=== PATIENT | female | born 1940 | race Caucasian/White ===

== ENCOUNTER → 2016-07-17 | Outpatient (CLI) | payer MEDICARE, BC ==
--- NOTE | 2016-07-17 11:19 | MM ---
Reason for exam: history of breast cancer, conservation therapy. Last mammogram was performed 1 year ago. History: Patient is postmenopausal and has history of bilateral breast cancer at age 73. Family history of breast cancer in sister at age 60. Malignant left breast needle localization of both breasts, October 06, 2013. Lumpectomy of the left breast, October 06, 2013. Malignant US LT VAD breast biopsy of the left breast, September 17, 2013. Radiation therapy, 2013. Took estrogen for 10 years beginning at age 47. Taking antineoplastic for 1 year. Physical Findings: Nurse did not find any significant physical abnormalities on exam. MG 3D Diag Mammo W/Cad KAT Bilateral CC and MLO view(s) were taken. Prior study comparison: July 14, 2015, bilateral MG 3d diag mammo w/cad KAT. July 13, 2014, bilateral MG diagnostic mammo w CAD KAT. August 29, 2013, bilateral digital screening mammo w/CAD. The breast tissue is heterogeneously dense. This may lower the sensitivity of mammography. Post surgical and post therapy changes in the left breast. No significant new findings when compared with previous films. These results were verbally communicated with the patient and result sheet given to the patient on 07/17/16. ASSESSMENT: Benign, BI-RAD 2 RECOMMENDATION: Follow-up diagnostic mammogram of both breasts in 1 year.
== END | disposition home or self-care (01) ==
LOC: RADMAMWWP 10:05
PROVIDERS: ATTEND Radiology Diagnostic Radiology
DX: C50.912 Malignant neoplasm of unspecified site of left female breast (principal)
CPT/HCPCS: G0204; G0279

== ENCOUNTER → 2017-07-18 | Outpatient (CLI) | payer MEDICARE, BC ==
--- NOTE | 2017-07-18 11:21 | MM ---
Reason for exam: additional evaluation requested from prior study. Last mammogram was performed 1 year ago. History: Patient is postmenopausal and has history of bilateral breast cancer at age 73. Family history of breast cancer in sister at age 60. Malignant left breast needle localization of both breasts, October 06, 2013. Lumpectomy of the left breast, October 06, 2013. Malignant US LT VAD breast biopsy of the left breast, September 17, 2013. Radiation therapy, 2013. Took estrogen for 10 years beginning at age 47. Taking antineoplastic for 1 year. Physical Findings: Nurse did not find any significant physical abnormalities on exam. MG 3D Diag Mammo W/Cad KAT Bilateral CC and MLO view(s) were taken. Prior study comparison: July 17, 2016, bilateral MG 3d diag mammo w/cad KAT. July 14, 2015, bilateral MG 3d diag mammo w/cad KAT. The breast tissue is heterogeneously dense. This may lower the sensitivity of mammography. Post surgical and post therapy changes in the left breast. Some benign secretory calcifications increased at 3 o'clock left breast. Focal asymmetry lateral right breast CC view does not persist on spot 3D. These results were verbally communicated with the patient and result sheet given to the patient on 07/18/17. ASSESSMENT: Benign, BI-RAD 2 RECOMMENDATION: Follow-up diagnostic mammogram of both breasts in 1 year.
== END | disposition home or self-care (01) ==
LOC: RADMAMWWP 09:34
PROVIDERS: ATTEND Radiology Diagnostic Radiology
DX: C50.912 Malignant neoplasm of unspecified site of left female breast (principal)
CPT/HCPCS: 77066; G0279

== ENCOUNTER → 2018-01-28 | Outpatient (CLI) | payer MEDICARE, BC ==
--- NOTE | 2018-01-28 14:12 | BD ---
EXAMINATION TYPE: Axial Bone Density DATE OF EXAM: 01/28/2018 CLINICAL HISTORY: Postmenopausal female. Osteoporosis screening. COMPARISON: 01/26/2016 Height: 61.5 Weight: 155 FRAX RISK QUESTIONS: Alcohol (3 or more units per day): no Family History (Parent hip fracture): no Glucocorticoids (More than 3mos): no (Ex: prednisone, prednisolone, methylprednisolone, dexamethasone, and hydrocortisone). History of Fracture in Adulthood: no Secondary Osteoporosis: 1. Type 1 Diabetes: no 2. Hyperthyroidism: unsure 3. Menopause before 45: no, complete hysterectomy age 47 4. Malnutrition: no 5. Chronic liver disease: no Rheumatoid Arthritis: no Current Tobacco Use: no RISK FACTORS HISTORY OF: Family History of Osteoporosis: unsure Active: somewhat Diet low in dairy products/other sources of calcium: somewhat Postmenopausal woman: yes Take estrogen and/or progesterone medications: not now How long: Estrogen age [age] Lost more than 2 inches in height since high school: unsure; possibly height at one time was 63 1/2 i nches Frequent falls: no Poor Health: no Hyperparathyroidism: no Adrenal Insufficiency: no MEDICATIONS: Prednisone or other steroids: no Thyroid Medications: yes Which medication: Levothyroxine How Long: about 5-10 years Osteoporosis Medications: yes Which medication: Alendronate How Long: several years Additional Medications: Anastrozole(since ), AmLodipine-Besylate, Lisinopril Additional History: breast CA 2013, radiation EXAM MEASUREMENTS: Bone mineral densitometry was performed using the [employer] System. Bone mineral density as measured about the Lumbar spine is: ----- L1-L4(G/cm2): 1.646 T Score Values are as follows: ----- L2: 4.0 ----- L3: 4.9 ----- L4: 4.1 ----- L1-L4: 3.9 Bone mineral density has: Increased 1.7% since study of: 01/26/2016 Bone mineral density about the R hip (g/cm2): 0.808 Bone mineral density about the L hip (g/cm2): 0.825 T Score values are as follows: -----R Neck: -1.7 -----L Neck: -1.5 -----R Total: -0.4 -----L Total: -0.2 Bone mineral density has: Decreased -2.4% since study of: 01/26/2016 IMPRESSION: Osteopenia (T Score between -2.5 and -1). There is slightly increased risk of fracture and the patient may be considered for treatment. Re-Screen 2-5 years. NOTE: T-SCORE=SD OF THE YOUNG ADULT MEAN.
== END | disposition home or self-care (01) ==
LOC: RADBDWWP 13:00
PROVIDERS: ATTEND Internal Medicine Hematology & Oncology
DX: M85.80 Other specified disorders of bone density and structure, unspecified site (principal); Z79.890 Hormone replacement therapy
CPT/HCPCS: 77080

== ENCOUNTER → 2018-07-19 | Outpatient (CLI) | payer MEDICARE, BC ==
--- NOTE | 2018-07-19 12:14 | MM ---
Reason for exam: additional evaluation requested from prior study. Last mammogram was performed 1 year ago. History: Patient is postmenopausal and has history of bilateral breast cancer at age 73. Family history of breast cancer in sister at age 60. Malignant left breast needle localization of both breasts, October 06, 2013. Lumpectomy of the left breast, October 06, 2013. Malignant US LT VAD breast biopsy of the left breast, September 17, 2013. Radiation therapy, 2013. Took estrogen for 10 years beginning at age 47. Taking antineoplastic for 1 year. Physical Findings: Nurse did not find any significant physical abnormalities on exam. MG 3D Diag Mammo W/Cad KAT Bilateral CC and MLO view(s) were taken. XCCL and spot compression MLO view(s) were taken of the left breast. Prior study comparison: July 18, 2017, bilateral MG 3d diag mammo w/cad KAT. July 17, 2016, bilateral MG 3d diag mammo w/cad KAT. The breast tissue is heterogeneously dense. This may lower the sensitivity of mammography. Stable benign calcifications. Post operative lumpectomy changes left breast. No recurrent mass. No significant new findings when compared with previous films. These results were verbally communicated with the patient and result sheet given to the patient on 07/19/18. ASSESSMENT: Benign, BI-RAD 2 RECOMMENDATION: Follow-up diagnostic mammogram of both breasts in 1 year.
== END ==
LOC: RADMAMWWP 10:43
PROVIDERS: ATTEND Radiology Diagnostic Radiology
DX: C50.412 Malignant neoplasm of upper-outer quadrant of left female breast (principal)
CPT/HCPCS: 77066; G0279; 77062

== ENCOUNTER → 2019-07-21 | Outpatient (CLI) | payer MEDICARE, BC ==
--- NOTE | 2019-07-21 11:50 | MM ---
Reason for exam: additional evaluation requested from prior study. Last mammogram was performed 1 year ago. History: Patient is postmenopausal and has history of bilateral breast cancer at age 73. Family history of breast cancer in sister at age 60. Malignant left breast needle localization of both breasts, October 06, 2013. Lumpectomy of the left breast, October 06, 2013. Malignant US LT VAD breast biopsy of the left breast, September 17, 2013. Radiation therapy, 2013. Took estrogen for 10 years beginning at age 47. Taking antineoplastic for 1 year. Physical Findings: Nurse did not find any significant physical abnormalities on exam. MG 3D Diag Mammo W/Cad KAT Bilateral CC and MLO view(s) were taken. Prior study comparison: July 19, 2018, bilateral MG 3d diag mammo w/cad KAT. July 18, 2017, bilateral MG 3d diag mammo w/cad KAT. The breast tissue is heterogeneously dense. This may lower the sensitivity of mammography. Benign appearing bilateral calcifications. No suspicious abnormality. Left post therapy change stable right upper outer quadrant intramammary lymph node. No significant new findings when compared with previous films. These results were verbally communicated with the patient and result sheet given to the patient on 07/21/19. ASSESSMENT: Benign, BI-RAD 2 RECOMMENDATION: Follow-up diagnostic mammogram of both breasts in 1 year.
== END | disposition home or self-care (01) ==
LOC: RADMAMWWP 10:48
PROVIDERS: ATTEND Radiology Diagnostic Radiology
DX: Z08 Encounter for follow-up examination after completed treatment for malignant neoplasm (principal); Z85.3 Personal history of malignant neoplasm of breast
CPT/HCPCS: 77066; G0279; 77062

== ENCOUNTER 2020-04-17 11:27 | Emergency (ER) | payer MEDICARE, BC ==
[2020-04-17 11:36] VITALS: RESP 18
[2020-04-17] MEDS ORDERED: predniSONE 50 MG TAB PO STA (12:34)
[2020-04-17] MEDS ORDERED: ACET/COD 300 MG/30 MG STARTER PACK 6 TAB BTL PO STA (12:34)
--- NOTE | 2020-04-17 12:39 | ED ---
Neck Injury/Pain HPI - General Chief Complaint: Neck Pain/Injury Stated Complaint: Neck Pain Time Seen by Provider: 04/17/20 11:38 Source: RN notes reviewed, old records reviewed Mode of arrival: ambulatory Limitations: no limitations - History of Present Illness Initial Comments: Patient's an 80-year-old female who presents emergency room today with chief complaint of 2 weeks of neck pain. She reports it seems like her head feels heavy on her neck and bends forward and he she has a difficult time extending her neck to look up. She does have a history of osteoporosis and history of breast cancer in remission. She reports she does get medication to help with osteoporosis. She denies any fall or trauma. She also mentions that she's been having a couple of days of lower lip swelling. Denies any new food or exposures. She does take lisinopril. Denies any cough or shortness of breath trouble swallowing. - Related Data Home Medications Medication Instructions Recorded Confirmed Ibuprofen [Motrin] 200 - 400 mg PO Q6HR PRN 10/23/13 04/17/20 Levothyroxine Sodium [Synthroid] 88 mcg PO DAILY 10/23/13 04/17/20 Anastrozole [Arimidex] 1 mg PO DAILY 04/17/20 04/17/20 amLODIPine [Norvasc] 5 mg PO DAILY 04/17/20 04/17/20 lisinopriL [Zestril] 20 mg PO DAILY 04/17/20 04/17/20 Previous Rx's Medication Instructions Recorded Acetaminophen-Codeine 300-30mg 1 tab PO Q6H PRN 3 Days #12 tablet 04/17/20 [Tylenol w/codeine #3] methylPREDNISolone Dose Pack 4 mg PO DIRECTED #21 package 04/17/20 [Medrol Dose Pack] Allergies Allergy/AdvReac Type Severity Reaction Status Date / Time No Known Allergies Allergy Verified 04/17/20 12:22 Review of Systems ROS Statement: Those systems with pertinent positive or pertinent negative responses have been documented in the HPI. ROS Other: All systems not noted in ROS Statement are negative. Past Medical History Past Medical History: Cancer, Hypertension, Osteoarthritis (OA) Additional Past Medical History / Comment(s): HYPOTHYROID,BREAST CANCER SEPTEMBER 2013, RASH ON LEFT BREAST -SEEN AT OUTPT CLINIC AND STARTED ANTIBIOTIC 10/22/13, NOTIFIED DR DEMASHKIEHS OFFICE. STATES INCISIONS ARE HEALING WELL FROM BREAST SURGERY. 10/06/13 History of Any Multi-Drug Resistant Organisms: None Reported Past Surgical History: Breast Surgery, Hysterectomy Additional Past Surgical History / Comment(s): SINUS SURGERY, LEFT BREAST LUMPECTOMY 10/06/2013 Past Anesthesia/Blood Transfusion Reactions: No Reported Reaction Additional Past Anesthesia/Blood Transfusion Reaction / Comment(s): STATES PT WAS TOLD SHE NEEDED OXYGEN DURING SURGERY AND TO LET ANESTHESIA KNOW. Past Psychological History: No Psychological Hx Reported Smoking Status: Current every day smoker Past Alcohol Use History: None Reported Past Drug Use History: None Reported - Past Family History Sister(s) Family Medical History: Cancer General Exam - General Exam Comments Initial Comments: 80-year-old female. No distress. Limitations: no limitations General appearance: alert, in no apparent distress Head exam: Present: atraumatic, normocephalic, normal inspection Eye exam: Present: normal appearance, PERRL, EOMI. Absent: scleral icterus, conjunctival injection, periorbital swelling ENT exam: Present: normal exam, other (Evidence of lower lip swelling tongue appears normal.) Neck exam: Present: normal inspection, other (Patient has tenderness over the posterior cervical paraspinal muscles.). Absent: tenderness, meningismus, lymphadenopathy Respiratory exam: Present: normal lung sounds bilaterally. Absent: respiratory distress, wheezes, rales, rhonchi, stridor Cardiovascular Exam: Present: regular rate, normal rhythm, normal heart sounds. Absent: systolic murmur, diastolic murmur, rubs, gallop, clicks GI/Abdominal exam: Present: soft, normal bowel sounds. Absent: distended, tenderness, guarding, rebound, rigid Extremities exam: Present: normal inspection, full ROM, normal capillary refill. Absent: tenderness, pedal edema, joint swelling, calf tenderness Back exam: Present: normal inspection Neurological exam: Present: alert, oriented X3, CN II-XII intact Psychiatric exam: Present: normal affect, normal mood Skin exam: Present: warm, dry, intact, normal color. Absent: rash Course Vital Signs 04/17/20 04/17/20 11:33 12:42 Temperature 97.9 F Pulse Rate 117 H 100 Respiratory 18 18 Rate Blood Pressure 172/92 132/71 O2 Sat by Pulse 98 96 Oximetry Medical Decision Making - Medical Decision Making 80-year-old female presents emergency department today with 2 weeks of neck pain stating it is painful for her to lift her head completely up. She does have a history of osteoporosis receiving infusions by Dr. Cheung with history of breast cancer. Patient has evidence of kyphosis. Patient had cervical and thoracic spine x-rays which show multilevel spondylolisthesis and disc disc narrowing. Patient has no signs of compression fracture. Patient also did complain of a few days of lower lip swelling that she's been taking Benadryl for. She reports it is not seeming to help. She does take lisinopril and I believe the patient's lip swelling is related to angioedema from KIM inhibitor. Patient advised to discontinue the KIM inhibitor and will have the Patient follow-up with primary care doctor regards to changing her blood pressure medicine. In the meantime we'll refer low-dose Norvasc. I discussed the Patient needs to take anti- inflammatory medicine and will write for short course of pain medicine due to the arthritis within the neck and advised she may need to follow-up with a back specialist possibly have physical therapy to help with her neck pain. All questions answered. - Radiology Data Radiology results: report reviewed Thoracic spine shows satisfactory alignment without evidence of acute fracture dislocation. Vertebral body height preserved. Mild to moderate multilevel disc space narrowing greatest in the mid thoracic spine. Multiple spurring more severe anterior spurs in the lower thoracic spine in moderate to severe spurring in the right upper to mid lower thoracic spine. Visualized ribs are intact bilaterally. Cervical spine was visualized from C1 through T1 level. There is anterolisthesis at C3-C4 and grade 1 retrolisthesis C5-C6. Prevertebral soft tissues are normal. C1-C2 articulation is within normal limits. Vertebral body height are maintained. Mild to moderate posterior disc narrowing at C3-C4 level. Moderate to advanced is blistering and [id number] C5-C6 level. Mild to moderate anterior posterior spurring C6-C7. Awake images show neural foraminal narrowing bilaterally C4 C3 level due to marginal spurring. Overlying soft tissues unremarkable. No fracture evident. Disposition Clinical Impression: Neck pain, DDD (degenerative disc disease), cervical, Kyphosis, Lip swelling Disposition: HOME SELF-CARE Condition: Good Instructions (If sedation given, give patient instructions): Cervical Sprain (ED) Additional Instructions: Patient has follow-up with primary care physician as well as to our oncologist. SHe can also follow up with the orthopedic back specialist. Take the medica tions as prescribed. Recommended discontinuing lisinopril as this is likely related to lip swelling. Advised to start the new low-dose blood pressure medicine on Sunday of unable to follow-up with primary care doctor for recheck on Sunday. Turn to the emergency department if any alarming signs or symptoms occur. Prescriptions: methylPREDNISolone Dose Pack [Medrol Dose Pack] 4 mg PO DIRECTED #21 package Acetaminophen-Codeine 300-30mg [Tylenol w/codeine #3] 1 tab PO Q6H PRN 3 Days #12 tablet PRN Reason: Pain Is patient prescribed a controlled substance at d/c from ED?: Yes If prescribed controlled substance>3 days was MAPS reviewed?: Prescribed <3 Days If opioid is for acute pain is fill amount 7 days or less?: Yes If Rx opioid, was Start Talking consent form obtained?: Yes Referrals: Madhav Pryor DO [Primary Care Provider] - 1-2 days Manuel Corado DO [Doctor of Osteopathic Medicine] - 1-2 days Time of Disposition: 13:33
--- NOTE | 2020-04-17 12:46 | XR ---
EXAMINATION TYPE: XR cervical spine comp DATE OF EXAM: 04/17/2020 TECHNIQUE: Frontal, lateral, oblique, and open mouth view of the cervical spine are obtained. HISTORY: pain increasing pain COMPARISON: None FINDINGS: The cervical spine is visualized in its entirety from C1 thru the top of T1 level, there i s rate 1 anterolisthesis C3 on C4 and grade 1 retrolisthesis C5 on C6. The pre-vertebral soft tissue appears within normal limits. The C1-C2 articulation is within normal limits on the open mouth view . Vertebral body heights are maintained. Mild to moderate posterior disc space narrowing C3-C4 level. Moderate to advanced disc space narrowing with mild to moderate spurring C5-C6 level. Mild to modera te anterior and posterior spurring C6-C7 level. Oblique images show neural foraminal narrowing bilate rally at C3-C4 level due to marginal spurring. Overlying soft tissue is unremarkable. No acute fractu re is evident. IMPRESSION: As above.
--- NOTE | 2020-04-17 12:47 | XR ---
EXAMINATION TYPE: XR thoracic spine 2V DATE OF EXAM: 04/17/2020 CLINICAL HISTORY: Increasing pain. TECHNIQUE: Frontal, lateral, and swimmer's view of thoracic spine are obtained. COMPARISON: None. FINDINGS: Thoracic spine show satisfactory alignment without evidence of acute fracture or dislocatio n. Vertebral body heights are preserved. Mild to moderate multilevel disc space narrowing greatest i n the mid thoracic spine. Multilevel spurring with more severe anterior spurs in the lower thoracic s pine and moderate to severe spurring in the right upper to mid and lower thoracic spine. Visualized r ibs are intact bilaterally. IMPRESSION: As above.
[2020-04-17 14:36] VITALS: BP 134/88; PULSE 96; TEMP 97.6
== END 2020-04-17 14:36 | disposition home or self-care (01) ==
LOC: EC 11:27
DX: M48.02 Spinal stenosis, cervical region (principal); M99.71 Connective tissue and disc stenosis of intervertebral foramina of cervical region; M99.72 Connective tissue and disc stenosis of intervertebral foramina of thoracic region; M43.12 Spondylolisthesis, cervical region; M50.30 Other cervical disc degeneration, unspecified cervical region; M40.209 Unspecified kyphosis, site unspecified; C50.919 Malignant neoplasm of unspecified site of unspecified female breast; R22.0 Localized swelling, mass and lump, head; I10 Essential (primary) hypertension; M19.09 Primary osteoarthritis, other specified site; E03.9 Hypothyroidism, unspecified; F17.200 Nicotine dependence, unspecified, uncomplicated; Z79.899 Other long term (current) drug therapy; Z79.890 Hormone replacement therapy
CPT/HCPCS: 99284 ×2; 72070; 72050; J7512

== ENCOUNTER 2020-05-24 11:55 | Inpatient (IN) | payer MEDICARE, BC ==
--- NOTE | 2020-05-24 12:46 | ED ---
General Adult HPI - General Chief complaint: Recheck/Abnormal Lab/Rx Stated complaint: unable to swallow Time Seen by Provider: 05/24/20 12:10 Source: patient, family Mode of arrival: wheelchair Limitations: no limitations - History of Present Illness Initial comments: 80-year-old patient of Dr. Vides'kasandra who presents emergency department with inability to hold her head up and difficulty swallowing. Son is at bedside and reports that the patient has had issues with this since Halloween however it appears to be getting progressively worse. Patient was seen in her primary care office. Physician ordered a swallow study as well as a CT of the head. Swallow study was performed today for which the patient failed and therefore they recommended that the patient be transferred to the emergency department with her symptoms. Son states that the CT was scheduled for next week. She does have a history of breast cancer 6 years ago which is in remission. No previous history of strokes. Patient is not on any blood thinners. She denies any weakness in her upper or lower extremities. Admits to tingling in her lower lip with new speech difficulties and blurred vision. Denies headaches, neck pain, numbness or tingling in her extremities. No other alleviating, precipitating or modifying factors - Related Data Home Medications Medication Instructions Recorded Confirmed Levothyroxine Sodium [Synthroid] 88 mcg PO DAILY 10/23/13 05/24/20 Anastrozole [Arimidex] 1 mg PO DAILY 04/17/20 05/24/20 amLODIPine [Norvasc] 5 mg PO DAILY 04/17/20 05/24/20 lisinopriL [Zestril] 20 mg PO DAILY 04/17/20 05/24/20 Allergies Allergy/AdvReac Type Severity Reaction Status Date / Time No Known Allergies Allergy Verified 05/24/20 13:31 Review of Systems ROS Statement: Those systems with pertinent positive or pertinent negative responses have been documented in the HPI. ROS Other: All systems not noted in ROS Statement are negative. Past Medical History Past Medical History: Cancer, Hypertension, Osteoarthritis (OA) Additional Past Medical History / Comment(s): HYPOTHYROID,BREAST CANCER SEPTEMBER 2013, RASH ON LEFT BREAST -SEEN AT OUTPT CLINIC AND STARTED ANTIBIOTIC 10/22/13, NOTIFIED DR MCKENZIE OFFICE. STATES INCISIONS ARE HEALING WELL FROM BREAST SURGERY. 10/06/13 History of Any Multi-Drug Resistant Organisms: None Reported Past Surgical History: Breast Surgery, Hysterectomy Additional Past Surgical History / Comment(s): SINUS SURGERY, LEFT BREAST LUMPECTOMY 10/06/2013 Past Anesthesia/Blood Transfusion Reactions: No Reported Reaction Additional Past Anesthesia/Blood Transfusion Reaction / Comment(s): STATES PT WAS TOLD SHE NEEDED OXYGEN DURING SURGERY AND TO LET ANESTHESIA KNOW. Past Psychological History: No Psychological Hx Reported Smoking Status: Former smoker Past Alcohol Use History: None Reported Past Drug Use History: None Reported - Past Family History Sister(s) Family Medical History: Cancer General Exam Limitations: no limitations, physical limitation (hard of hearing) Head exam: Present: atraumatic, normocephalic, normal inspection Eye exam: Present: normal appearance, PERRL, EOMI. Absent: scleral icterus, conjunctival injection, periorbital swelling ENT exam: Present: normal exam, mucous membranes moist, other (tongue midline) Neck exam: Present: other (soft neck brace present. Patient weakly holds head up ) Respiratory exam: Present: normal lung sounds bilaterally. Absent: respiratory distress, wheezes, rales, rhonchi, stridor Cardiovascular Exam: Present: regular rate, normal rhythm, normal heart sounds. Absent: systolic murmur, diastolic murmur, rubs, gallop, clicks GI/Abdominal exam: Present: soft, normal bowel sounds. Absent: distended, tenderness, guarding, rebound, rigid Extremities exam: Present: normal inspection, full ROM, normal capillary refill. Absent: tenderness, pedal edema, joint swelling, calf tenderness Psychiatric exam: Present: flat affect Skin exam: Present: warm, dry, intact, normal color. Absent: rash Course Vital Signs 05/24/20 05/24/20 05/24/20 12:08 14:09 17:00 Temperature 98.2 F Pulse Rate 109 H 80 96 Respiratory 18 18 18 Rate Blood Pressure 105/58 111/74 134/66 O2 Sat by Pulse 98 98 98 Oximetry 05/24/20 22:15 Temperature Pulse Rate 75 Respiratory 17 Rate Blood Pressure 123/80 O2 Sat by Pulse 98 Oximetry EKG Findings - EKG Comments: EKG Findings:: EKG demonstrates a symptoms tachycardia with a ventricular rate of 102. MT interval 120. QRS 74. QTC of 437. No acute ST segment elevations or depressions concerning for ischemic changes Medical Decision Making - Medical Decision Making Upon arrival patient is placed into room 26. A thorough history and physical exam was performed. I did review the patient's swallow exam was performed today which she did have large aspiration identified. Lab studies are conducted. Patient went for a CT of her brain and cervical spine. Laboratory studies demonstrate a sodium of 132. CT of the brain and straights mild changes of chronic small vessel ischemic disease. No acute intracranial abnormality. No acute fracture of the cervical spine. Moderate multilevel spondylitic changes with multilevel degenerative grade 1 anterior listhesis. I discussed the results with the patient and her son at bedside. As the patient is unable to tolerate any food or liquid by mouth I did recommend hospitalization for which the patient and her son did agree to. She is scheduled to see Dr. Ingram therefore I did recommend placing him on consult as well as neurology. I spoke with Dr. Shrestha who agreed to this. Patient is currently awaiting a bed on the floor - Lab Data Result diagrams: 05/30/20 14:35 05/30/20 14:35 Lab Results 05/24/20 05/24/20 05/24/20 Range/Units 12:39 12:46 12:46 WBC 6.1 (3.8-10.6) k/uL RBC 4.93 (3.80-5.40) m/uL Hgb 13.9 (11.4-16.0) gm/dL Hct 41.9 (34.0-46.0) % MCV 85.0 (80.0-100.0) fL MCH 28.1 (25.0-35.0) pg MCHC 33.1 (31.0-37.0) g/dL RDW 14.2 (11.5-15.5) % Plt Count 461 H (150-450) k/uL MPV 6.4 Neutrophils % 79 % Lymphocytes % 13 % Monocytes % 6 % Eosinophils % 1 % Basophils % 0 % Neutrophils # 4.8 (1.3-7.7) k/uL Lymphocytes # 0.8 L (1.0-4.8) k/uL Monocytes # 0.4 (0-1.0) k/uL Eosinophils # 0.0 (0-0.7) k/uL Basophils # 0.0 (0-0.2) k/uL PT 11.4 (9.0-12.0) sec INR 1.1 (<1.2) APTT 22.4 (22.0-30.0) sec Sodium (137-145) mmol/L Potassium (3.5-5.1) mmol/L Chloride (98-107) mmol/L Carbon Dioxide (22-30) mmol/L Anion Gap mmol/L BUN (7-17) mg/dL Creatinine (0.52-1.04) mg/dL Est GFR (CKD-EPI)AfAm (>60 ml/min/1.73 sqM) Est GFR (CKD-EPI)NonAf (>60 ml/min/1.73 sqM) Glucose (74-99) mg/dL POC Glucose (mg/dL) 94 (75-99) mg/dL POC Glu Speech Pathologist ID Jaquan Cobb Calcium (8.4-10.2) mg/dL Total Bilirubin (0.2-1.3) mg/dL AST (14-36) U/L ALT (4-34) U/L Alkaline Phosphatase (38-126) U/L Troponin I (0.000-0.034) ng/mL Total Protein (6.3-8.2) g/dL Albumin (3.5-5.0) g/dL TSH (0.465-4.680) mIU/L Free T4 (0.78-2.19) ng/dL Acetylcholine Recept Ab nmol/L 05/24/20 05/24/20 05/24/20 Range/Units 12:46 12:46 12:46 WBC (3.8-10.6) k/uL RBC (3.80-5.40) m/uL Hgb (11.4-16.0) gm/dL Hct (34.0-46.0) % MCV (80.0-100.0) fL MCH (25.0-35.0) pg MCHC (31.0-37.0) g/dL RDW (11.5-15.5) % Plt Count (150-450) k/uL MPV Neutrophils % % Lymphocytes % % Monocytes % % Eosinophils % % Basophils % % Neutrophils # (1.3-7.7) k/uL Lymphocytes # (1.0-4.8) k/uL Monocytes # (0-1.0) k/uL Eosinophils # (0-0.7) k/uL Basophils # (0-0.2) k/uL PT (9.0-12.0) sec INR (<1.2) APTT (22.0-30.0) sec Sodium 132 L (137-145) mmol/L Potassium 4.2 (3.5-5.1) mmol/L Chloride 99 (98-107) mmol/L Carbon Dioxide 19 L (22-30) mmol/L Anion Gap 14 mmol/L BUN 18 H (7-17) mg/dL Creatinine 0.64 (0.52-1.04) mg/dL Est GFR (CKD-EPI)AfAm >90 (>60 ml/min/1.73 sqM) Est GFR (CKD-EPI)NonAf 83 (>60 ml/min/1.73 sqM) Glucose 92 (74-99) mg/dL POC Glucose (mg/dL) (75-99) mg/dL POC Glu Speech Pathologist ID Calcium 9.8 (8.4-10.2) mg/dL Total Bilirubin 0.6 (0.2-1.3) mg/dL AST 36 (14-36) U/L ALT 32 (4-34) U/L Alkaline Phosphatase 61 (38-126) U/L Troponin I 0.023 (0.000-0.034) ng/mL Total Protein 7.2 (6.3-8.2) g/dL Albumin 4.3 (3.5-5.0) g/dL TSH 0.096 L (0.465-4.680) mIU/L Free T4 2.48 H (0.78-2.19) ng/dL Acetylcholine Recept Ab nmol/L 05/24/20 05/25/20 05/25/20 Range/Units 12:46 07:35 07:35 WBC 4.8 (3.8-10.6) k/uL RBC 4.94 (3.80-5.40) m/uL Hgb 13.5 (11.4-16.0) gm/dL Hct 42.8 (34.0-46.0) % MCV 86.6 (80.0-100.0) fL MCH 27.2 (25.0-35.0) pg MCHC 31.4 (31.0-37.0) g/dL RDW 14.5 (11.5-15.5) % Plt Count 423 (150-450) k/uL MPV 6.3 Neutrophils % 91 % Lymphocytes % 8 % Monocytes % 1 % Eosinophils % 0 % Basophils % 0 % Neutrophils # 4.3 (1.3-7.7) k/uL Lymphocytes # 0.4 L (1.0-4.8) k/uL Monocytes # 0.1 (0-1.0) k/uL Eosinophils # 0.0 (0-0.7) k/uL Basophils # 0.0 (0-0.2) k/uL PT (9.0-12.0) sec INR (<1.2) APTT (22.0-30.0) sec Sodium 135 L (137-145) mmol/L Potassium 4.3 (3.5-5.1) mmol/L Chloride 102 (98-107) mmol/L Carbon Dioxide 20 L (22-30) mmol/L Anion Gap 13 mmol/L BUN 15 (7-17) mg/dL Creatinine 0.57 (0.52-1.04) mg/dL Est GFR (CKD-EPI)AfAm >90 (>60 ml/min/1.73 sqM) Est GFR (CKD-EPI)NonAf 87 (>60 ml/min/1.73 sqM) Glucose 92 (74-99) mg/dL POC Glucose (mg/dL) (75-99) mg/dL POC Glu Speech Pathologist ID Calcium 8.8 (8.4-10.2) mg/dL Total Bilirubin (0.2-1.3) mg/dL AST (14-36) U/L ALT (4-34) U/L Alkaline Phosphatase (38-126) U/L Troponin I (0.000-0.034) ng/mL Total Protein (6.3-8.2) g/dL Albumin (3.5-5.0) g/dL TSH (0.465-4.680) mIU/L Free T4 (0.78-2.19) ng/dL Acetylcholine Recept Ab 19.40 H nmol/L Disposition Clinical Impression: Dysphagia, Aspiration into airway Disposition: ADMITTED IP TO THIS HOSP Condition: Stable Is patient prescribed a controlled substance at d/c from ED?: No Decision to Admit Reason: Admit from EC Decision Date: 05/24/20 Decision Time: 14:40
[2020-05-24 12:49] LABS: Glucose,Whole Blood 94 mg/dL (75-99)
[2020-05-24 12:55] LABS: Basophils % (A) 0 %; Eosinophils % (A) 1 %; HCT 41.9 % (34.0-46.0); HGB 13.9 gm/dL (11.4-16.0); Lymphocytes # (A) 0.8 k/uL (1.0-4.8); Lymphocytes % (A) 13 %; MCH 28.1 pg (25.0-35.0); MCHC 33.1 g/dL (31.0-37.0); Mean Platelet Volume 6.4; Monocytes # (A) 0.4 k/uL (0-1.0); Monocytes % (A) 6 %; Neutrophils # (A) 4.8 k/uL (1.3-7.7); Neutrophils % (A) 79 %; Platelet Count 461 k/uL (150-450); RBC 4.93 m/uL (3.80-5.40); RDW 14.2 % (11.5-15.5); WBC 6.1 k/uL (3.8-10.6)
[2020-05-24 13:05] LABS: ALT 32 U/L (4-34); AST 36 U/L (14-36); African American GFR (CKD) >90 (>60 ml/min/1.73 sqM); Albumin 4.3 g/dL (3.5-5.0); Alkaline Phosphatase 61 U/L (38-126); Anion Gap 14 mmol/L; Blood Urea Nitrogen 18 mg/dL (7-17); Calcium 9.8 mg/dL (8.4-10.2); Carbon Dioxide 19 mmol/L (22-30); Chloride 99 mmol/L (98-107); Glucose 92 mg/dL (74-99); Non-African American GFR(CKD) 83 (>60 ml/min/1.73 sqM); Potassium 4.2 mmol/L (3.5-5.1); Sodium 132 mmol/L (137-145); Total Bilirubin 0.6 mg/dL (0.2-1.3); Total Protein 7.2 g/dL (6.3-8.2)
[2020-05-24 13:08] LABS: INR 1.1 (<1.2); Prothrombin Time 11.4 sec (9.0-12.0)
[2020-05-24 13:09] LABS: Partial Thromboplastin Time 22.4 sec (22.0-30.0)
--- NOTE | 2020-05-24 13:17 | CT ---
EXAMINATION TYPE: CT brain channing barr con DATE OF EXAM: 05/24/2020 COMPARISON: None HISTORY: 80-year-old female Unable to swallow and holding head up CT DLP: 1213.5 mGycm Automated exposure control for dose reduction was used. Technique: Examination of the head was done in axial plane without intravenous contrast. Coronal and sagittal reconstructions performed. CT of the cervical spine was obtained in axial plane without intravenous injection of contrast mater ial. Coronal and sagittal reformatted images were obtained from the axial views for evaluation of f ractures, spinal alignment and canal. FINDINGS: Head: There is no evidence of acute intracranial hemorrhage, acute ischemic changes, mass, mass-effect, or extra-axial fluid collection. There is no effacement of cerebral sulci or basal subarachnoid cister ns. There is no hydrocephalus. There is no midline shift. Nguyen-white matter distinction is preserv ed. Mild patchy white matter hypodensities in both cerebral hemispheres. Lacunae in the anterior left fro ntal periventricular white matter measuring 5 mm. Mild mucosal thickening ethmoid air cells. Slight rightward nasal septal deviation. Mastoid air cells well pneumatized. Orbits and globes are intact. Cervical spine: No craniocervical junction of the body, predental space widening, or prevertebral soft tissue swellin g. Degenerated dextro convex curvature of the cervical spine with multilevel facet and uncovertebral joint arthropathy. There is grade 1 anterolisthesis at C3-C4 and C4-C5 as well as C6-T2 levels. Disc osteophyte complex results in mild narrowing of the spinal canal at C5-C6. No acute fracture of the cervical spine. Multilevel variable mild neuroforaminal stenoses throughout. The thyroid gland is very small. There is a 1.7 cm hypodense nodule on the left. Ectatic upper descending thoracic aorta 3.2 cm. Chronic appearing interstitial scarring and biapical pleural parenchymal scarring in the visualized upper lungs. Sagittal and coronal reformatted images confirm above findings. COMBINED IMPRESSION: 1. Mild changes of chronic small vessel ischemic disease. No acute intracranial abnormality seen. If symptoms persist, consider MRI. 2. No acute fracture of the cervical spine. Moderate multilevel spondylotic change with multilevel de generative grade 1 anterolisthesis.
--- NOTE | 2020-05-24 13:20 | XR ---
EXAMINATION TYPE: XR chest 2V DATE OF EXAM: 05/24/2020 COMPARISON: NONE HISTORY: Weakness. TECHNIQUE: Frontal and lateral views of the chest are obtained. FINDINGS: There is chronic parenchymal changes and low lung volumes, there is some silhouetting of l eft heart border with increased opacity. No pleural effusion or pneumothorax seen bilaterally. The c ardiac silhouette size is likely within normal limits. Surgical clips left axilla. The osseous struc tures are demineralized. IMPRESSION: Low lung volumes, left basilar opacity favors scarring and/or atelectasis. Difficult to exclude acute infiltrate without prior comparison.
[2020-05-24] MEDS ORDERED: NALOXONE 0.4 MG/ML 1 ML VIAL IV PRN (14:58)
[2020-05-24] MEDS: SODIUM CHLORIDE 0.9% 1,000 ML IV SCH (17:26)
--- NOTE | 2020-05-24 19:13 | P.CNOR ---
History of Present Illness - HPI Consult date: 05/24/20 Consult reason: neck pain History of present illness: This is a pleasant 80 yo female who has a history of HTN presents to the ED after visiting her PCP Dr. Vides for progressive neck weakness, dropped head and CVA like symptoms. Her son, who is in the room with her, provided most of the history and he states that over the past three weeks she has progressively become very weak in her neck to the point where she cannot hold her head up straight any longer. She normally ambulates under her own power, but is having difficulty due to her head hangning down and not being able to lift it. She does have a hx of BCA in the past as well. She states her head just feels heavy. She denies any weakness in her arms or legs and states no numbness/tingling in her arms or legs but that her face is having numbness on the R side as well as her lip. She states normally she gets around on her own but it has become very difficult due to not being able to hold up her head. She is also having increased difficulty with swallowing as well as breathing secondary to this issue. She denies any trauma to the area, no falls, no other issues. She currently denies f/c/sob/cp. Review of Systems 14 point review of systems completed and as stated in the HPI. All other systems reviewed negative. Past Medical History Past Medical History: Cancer, Hypertension, Osteoarthritis (OA) Additional Past Medical History / Comment(s): HYPOTHYROID,BREAST CANCER SEPTEMBER 2013, RASH ON LEFT BREAST -SEEN AT OUTPT CLINIC AND STARTED ANTIBIOTIC 10/22/13, NOTIFIED DR MCKENZIE OFFICE. STATES INCISIONS ARE HEALING WELL FROM BREAST SURGERY. 10/06/13 History of Any Multi-Drug Resistant Organisms: None Reported Past Surgical History: Breast Surgery, Hysterectomy Additional Past Surgical History / Comment(s): SINUS SURGERY, LEFT BREAST LUMPECTOMY 10/06/2013 Past Anesthesia/Blood Transfusion Reactions: No Reported Reaction Additional Past Anesthesia/Blood Transfusion Reaction / Comm: STATES PT WAS TOLD SHE NEEDED OXYGEN DURING SURGERY AND TO LET ANESTHESIA KNOW. Past Psychological History: No Psychological Hx Reported Smoking Status: Former smoker Past Alcohol Use History: None Reported Past Drug Use History: None Reported - Past Family History Sister(s) Family Medical History: Cancer Medications and Allergies Home Medications Medication Instructions Recorded Confirmed Type Levothyroxine Sodium [Synthroid] 88 mcg PO DAILY 10/23/13 05/24/20 History Anastrozole [Arimidex] 1 mg PO DAILY 04/17/20 05/24/20 History amLODIPine [Norvasc] 5 mg PO DAILY 04/17/20 05/24/20 History lisinopriL [Zestril] 20 mg PO DAILY 04/17/20 05/24/20 History Allergies Allergy/AdvReac Type Severity Reaction Status Date / Time No Known Allergies Allergy Verified 05/24/20 13:31 Physical Examination Osteopathic Statement: *. No significant issues noted on an osteopathic structural exam other than those noted in the History and Physical/Consult. General: AOX3, NAD VSS at this time Postural balance: Positive sagittal balance Chin on chest deformity Able to lie flat which relatively reduces her issue which seems to be stemming from the C-T junction where she has a large gibbus kyphoisis formation. She is non tender to her C T L spine on palpation Negative ballotment Intact distal pulses al 4 ext 2/4 palpable Motor: 5/5 strength for her in b/l UE all major muscle groups 5/5 strength for her in b/l LE all major muscle groups Full painless ROM of the b/l UE and LE all major joints Witnessed patient get up and go to bathroom under her own power, but she is unable to straighten up and hold her head up Neurological: CN II-XII grossly intact R sided facial numbness to light touch C5-T1 intact to light touch L2-S1 intact to light touch Negative Espinoza's b/l Negative Babinski b/l No clonus Negative Spurlungs, or Lehermittes EOMI PERRLA Gait: Normal, ambulates under her own power with minimal assist Intact rOMBERGS Diadiokinesis is intact. Results CT of the brain and C spine are reviewed. This demonstrates spondylosis through the cervical spine with fairly well maintained lordosis. There is a suspicious area of C3-4 where there is hyper extension of the C3-4 disc space with anterior listhesis. This is worrisome for a hyper extension type injury as there is fish mouthing of the disc space in this region. C0-1 and C1-2 joints are stable and do not appear to have any fracture or dislocation about them. There is no invagination or evidence of foramen magnum encroachment. MRI would decipher better the C3-4 area. - Labs Labs: Abnormal Lab Results - Last 24 Hours (Table) 05/24/20 12 Range/Units 12:46 12:46 Plt Count 461 H (150-450) k/uL Lymphocytes # 0.8 L (1.0-4.8) k/uL Sodium 132 L (137-145) mmol/L Carbon Dioxide 19 L (22-30) mmol/L BUN 18 H (7-17) mg/dL H & H 05/24/20 Range/Units 12:46 Hgb 13.9 (11.4-16.0) gm/dL Hct 41.9 (34.0-46.0) % Coagulation 05/24/20 Range/Units 12:46 INR 1.1 (<1.2) Result Diagrams: 05/24/20 12:46 05/24/20 12:46 Assessment and Plan Assessment: 80 yo female with progressive [id number] deformity which is causing swallowing and respiratory compromise 1. Cervical spondylosis, severe 2. Questionable C3-4 hyperextension injury 3. 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 Plan: -Appreciate consult -Hard cervical collar at all times -CT of T spine to complete bony picture -MRI of C spine to evaluate the C3-4 region for possible injury -Depending on what imaging may show, patient may need stabilization for the pure fact that she cannot swallow and becomes short of breath when she is up do to her severe kyphosis. She is still fairly active and to condem her to bed to keep her neck straight does not seem feasible. I spoke with son at length that respiratory compromise or GI compromise are reasons to have surgery, he was not enthralled with this, but they understand are willing to talk about it more. I will recommend at this time a hard cervical collar at all times and for us to complete imaging to look at her T spine and C spine for injury. The patient may also need a G tube placement for feeds if we consider surgery, as it can take time for swallowing to rebound even after surgical intervention. Time with Patient: Greater than 30
--- NOTE | 2020-05-24 20:07 | P.CNNES ---
History of Present Illness Consult date: 05/24/20 Requesting physician: Negin Ledezma Reason for Consult: Acute dysphagia, facial tingling, possible CVA History of Present Illness: Patient is a 80-year-old female came to the hospital today at 11:55 AM due to failing swallow studies. Patient had inability to hold her head up and difficulty swallowing. Symptoms have been present since Halloween, however it appears to be getting progressively worse. Patient was seen by primary physician, who recommended swallow study as well as computed tomography scan of the head. Patient failed swallow study, therefore was referred to the hospital for further evaluation. Vital signs revealed blood pressure 105/58 pulse rate 109, temperature 98.2. Computed tomography scan of the head showed mild changes of chronic small vessel ischemic disease. No acute process. If symptoms persist, consider MRI. CT of the cervical spine showed no acute fracture of the cervical spine. Moderate multilevel spondylotic changes with multilevel degenerative grade 1 anterolisthesis. Chest x-ray showed low lung volumes, left basilar opacity favors scarring and/or atelectasis. Difficult to exclude acute infiltrate without prior comparison. EKG shows sinus tachycardia. Patient's blood test shows normal CBC, platelets are 461, PT/PTT normal. Sodium 132 potassium 4.2, normal renal functions. Normal hepatic panel. Troponin negative. Patient has history of breast cancer, currently in remission. Patient is on Arimidex. Also has hypertension and hypothyroidism. Patient underwent swallow studies, which was limited to no epiglottic inversion. Decreased pharyngeal peristalsis. A large episode of ryan silent penetration of thin liquid consistency. Significant vallecular residual which requires multiple swallows for the patient to clear the bolus. Patient son was also present, who provided with a history. He states that symptoms started actually since end of March 2020 when she had difficulty holding her head up. She came to ER and was diagnosed with arthritis in the neck. Patient subsequently started developing difficulty swallowing for solid Fort, but then started having difficulty with swallowing liquids in the past weekend. Patient feels her both lip felt numb and thick. Patient occasionally drools. Patient son has noted that she is slurring her speech in the last day or so. Her head drops down. Denies any pain in the neck. In the last couple days patient also was complaining of seeing double vision, as she was seeing 2 cars. Patient has history of hypertension, but no diabetes, nonsmoker. She was diagnosed with breast cancer in September 2013, currently in remission. Review of Systems As mentioned in detail in HPI. Patient has some double vision, droopy eyes, slurred speech, neck weakness, slight difficulty breathing, dysphagia, denies any abdominal pain nausea vomiting diarrhea. Denies chest pain. Patient has generalized weakness. Some arthritis. All other review of systems unremarkable. Past Medical History Past Medical History: Cancer, Hypertension, Osteoarthritis (OA) Additional Past Medical History / Comment(s): HYPOTHYROID,BREAST CANCER SEPTEMBER 2013, RASH ON LEFT BREAST -SEEN AT OUTPT CLINIC AND STARTED ANTIBIOTIC 10/22/13, N OTIFIED DR MCKENZIE OFFICE. STATES INCISIONS ARE HEALING WELL FROM BREAST SURGERY. 10/06/13 History of Any Multi-Drug Resistant Organisms: None Reported Past Surgical History: Breast Surgery, Hysterectomy Additional Past Surgical History / Comment(s): SINUS SURGERY, LEFT BREAST LUMPECTOMY 10/06/2013 Past Anesthesia/Blood Transfusion Reactions: No Reported Reaction Additional Past Anesthesia/Blood Transfusion Reaction / Comment(s): STATES PT WAS TOLD SHE NEEDED OXYGEN DURING SURGERY AND TO LET ANESTHESIA KNOW. Past Psychological History: No Psychological Hx Reported Smoking Status: Former smoker Past Alcohol Use History: None Reported Past Drug Use History: None Reported - Past Family History Sister(s) Family Medical History: Cancer Medications and Allergies Home Medications Medication Instructions Recorded Confirmed Type Levothyroxine Sodium [Synthroid] 88 mcg PO DAILY 10/23/13 05/24/20 History Anastrozole [Arimidex] 1 mg PO DAILY 04/17/20 05/24/20 History amLODIPine [Norvasc] 5 mg PO DAILY 04/17/20 05/24/20 History lisinopriL [Zestril] 20 mg PO DAILY 04/17/20 05/24/20 History Allergies Allergy/AdvReac Type Severity Reaction Status Date / Time No Known Allergies Allergy Verified 05/24/20 13:31 Physical Examination - Vital Signs Vital Signs: Vital Signs Temp Pulse Resp BP Pulse Ox 05/24/20 14:09 80 18 111/74 98 05/24/20 12:08 98.2 F 109 H 18 105/58 98 Intake and Output 05/24/20 05/24/20 05/24/20 06:59 14:59 22:59 Other: Weight 61.689 kg On examination patient is an elderly female very pleasant in no acute distress. Patient is alert and awake fairly well oriented. Speech has definite some slurring but no aphasia. Patient's speech gets more slurred with prolonged speaking. No obvious bruit, S1 and S2 audible, abdomen soft nontender. Chest is clear. Peripheral pulses are present. No edema. On cranial examination pupils are round and reacting to light, visual cano are full on confrontation, extraocular muscles are intact with no nystagmus. Patient has mild bilateral ptosis, and her eyelids sags down with prolonged upgaze. Face is symmetric, but is very weak in upper and lower part of the facial region. Tongue protrudes the midline. Patient has weakness for [id number] movement of the tongue. Patient's neck flexion and extension is very weak. Hearing is decreased shoulder shrug is normal. 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 Hip flexion is 4+, knee extension and ankles are normal. Reflexes are symmetric and plantars downgoing. Sensory touch is equal with no neglect. Tone and bulk of muscles normal. Results - Laboratory Findings CBC and BMP: 05/24/20 12:46 05/24/20 12:46 Abnormal Lab Findings: Abnormal Labs 05/24/20 12 12:46 12:46 Plt Count 461 H Lymphocytes # 0.8 L Sodium 132 L Carbon Dioxide 19 L BUN 18 H Assessment and Plan Assessment: * Probable Myasthenia gravis, with acute exacerbation. Plan: * Stat Acetylcholine receptor antibodies. * Thyroid functions tests. * Closely monitor breathing status. * Start Mestinon 30 mg twice a day. If tolerated well, will increase to 60 mg 3 times a day in am. * Consider low-dose prednisone if does not respond to Mestinon. * CT of the chest to rule out thymoma. * Speech and swallow to closely follow as well. * Discussed with patient's son in detail.
--- NOTE | 2020-05-24 20:22 | CT ---
EXAMINATION TYPE: CT CervThoracic spine wo con DATE OF EXAM: 05/24/2020 COMPARISON: None HISTORY: Fall. Neck pain. Back pain CT DLP: mGycm Automated exposure control for dose reduction was used. Images were obtained from the skull base to the L1 vertebra without contrast. Cervical and thoracic vertebra overall have fairly normal alignment. There is a mild accentuated thor acic kyphotic curvature without significant loss of height of the vertebra. There is a a few millimet er retrolisthesis at C5-6. There is C3-4 3 mm spondylolisthesis. There is hypertrophic multilevel fac et arthropathy in the cervical spine. There is no significant compression deformity of the cervical a nd thoracic vertebra. I see no evidence of an acute fracture. There is anterior bridging osteophyte f ormation in the lower thoracic spine. There is no thoracic paraspinal mass. I see no focal bone destruction. There is some mild linear infi ltrate and atelectasis at the lung bases on the right side more than the left. IMPRESSION: There are some spondylotic hypertrophic degenerative changes in the cervical and thoracic spine. Mild subluxation deformities at C3-4 and C5-6 without evidence of any significant cervical bony spinal st enosis. No acute bony abnormality seen.
[2020-05-24 21:21] LABS: T4, Free (Free Thyroxine) 2.48 ng/dL (0.78-2.19)
[2020-05-24] MEDS: PYRIDOSTIGMINE 60 MG TAB PO SCH (21:37)
--- NOTE | 2020-05-24 22:39 | P.HPIM ---
History of Present Illness H&P Date: 05/24/20 Chief Complaint: Possible CVA, acute dysphagia, questionable of myasthenia g ravis and severe 80-year-old female one of Dr. Pryor patient with past medical history of breast cancer, hypertension, severe osteoarthritis and hypothyroidism who has not been feeling well since March when developed to have trouble holding her head straight up ended up coming [facility] the time x-ray showed severe arthritis with possible left mild disc disease. Patient ended up going back to see Dr. Pryor more testing to be order. Lately patient is up to have severe dysphagia where patient was scheduled to have swallow study came back severely abnormal and higher possibility for central dysphagia patient ended up coming to the emergency department where was seen and evaluated ended up going for CT of the brain and the cervical spine showed moderate multilevel s pondylotic change with multiple degenerative a grade 1 anterolisthesis with small vessel disease on CAT scan of the brain. With her clinical exam also notice slight ptosis of both upper eyelid patient had severe high possibility for having myasthenia gravis just a diagnosed right. Patient was seen and evaluated by neurology and testing with acetylcholine receptor binding antibody was requested. Patient was started on Mestinon 50 mg 3 times a day by neurology also requests to see Dr. Mack for possible severe abnormality with radiculopathy of the cervical spine. As of concern of her breast cancer patient has been in remission at this point in doing well. Review of Systems CONSTITUTIONAL: Well-developed no acute respiratory distress. EYES: No icterus sclerae, no conjunctivitis significant ptosis of the upper eyelid. EARS, NOSE, MOUTH, THROAT, and FACE: No sore throat, lymphadenopathy, carotid bruits or deformity. RESPIRATORY: No SOB cough or wheezes. CARDIOVASCULAR: No CP, Palpitation, PND, Orthopnea, or angina. GASTROINTESTINAL: No Abd pain, Nausea or vomiting, no Diarrhea or constipation, significant dysphagia GENITOURINARY: Negative for Hematuria or UTI, no kidney stones. INTEGUMENT/BREAST: Negative for any muscular injury with mild osteoarthritis.. HEMATOLOGIC/LYMPHATIC: Negative for bleed or purpura. MUSCULOSKELTAL: Negative for Myalgia or arthralgia. NEURLOGICAL: No LOC, Sz or syncope, blurred vision dizziness or abnormality.. BEHAVIORAL/PSYCH: Negative. ENDOCRINE: Negative. Past Medical History Past Medical History: Cancer, Hypertension, Osteoarthritis (OA) Additional Past Medical History / Comment(s): HYPOTHYROID,BREAST CANCER SEPTEMBER 2013, RASH ON LEFT BREAST -SEEN AT OUTPT CLINIC AND STARTED ANTIBIOTIC 10/22/13, NOTIFIED DR MCKENZIE OFFICE. STATES INCISIONS ARE HEALING WELL FROM BREAST SURGERY. 10/06/13 History of Any Multi-Drug Resistant Organisms: None Reported Past Surgical History: Breast Surgery, Hysterectomy Additional Past Surgical History / Comment(s): SINUS SURGERY, LEFT BREAST LUMPECTOMY 10/06/2013 Past Anesthesia/Blood Transfusion Reactions: No Reported Reaction Additional Past Anesthesia/Blood Transfusion Reaction / Comment(s): STATES PT WAS TOLD SHE NEEDED OXYGEN DURING SURGERY AND TO LET ANESTHESIA KNOW. Past Psychological History: No Psychological Hx Reported Smoking Status: Former smoker Past Alcohol Use History: None Reported Past Drug Use History: None Reported - Past Family History Sister(s) Family Medical History: Cancer Medications and Allergies Home Medications Medication Instructions Recorded Confirmed Type Levothyroxine Sodium [Synthroid] 88 mcg PO DAILY 10/23/13 05/24/20 History Anastrozole [Arimidex] 1 mg PO DAILY 04/17/20 05/24/20 History amLODIPine [Norvasc] 5 mg PO DAILY 04/17/20 05/24/20 History lisinopriL [Zestril] 20 mg PO DAILY 04/17/20 05/24/20 History Allergies Allergy/AdvReac Type Severity Reaction Status Date / Time No Known Allergies Allergy Verified 05/24/20 13:31 Physical Exam Vitals: Vital Signs Temp Pulse Resp BP Pulse Ox 05/24/20 17:00 96 18 134/66 98 05/24/20 14:09 80 18 111/74 98 05/24/20 12:08 98.2 F 109 H 18 105/58 98 Intake and Output 05/24/20 05/24/20 05/24/20 06:59 14:59 22:59 Other: Weight 61.689 kg General Appearance: Alert, cooperative, no distress, appears stated age. Neck HEENT: Slight discomfort and stiffness in the neck area patient is wearing collar at this point., no lymphadenopathy, no thyroid enlargement, no carotid bruits. Mild droopy eye mild ptosis Lungs: Clear to auscultation without crackles or wheezes no rhonchi, no deformity. Chest Wall: Chest wall normal expansion with deep inspiration no tenderness and no deformity was found on exam, no costochondral pain or discomfort. Heart: Regular rate and rhythm, S1, S2 normal, no murmur, rub or gallop. Back: Symmetric, no curvature, ROM normal, no CVA tenderness. Abdomen: Soft, non-tender, bowel sounds active all four quadrants, no masses, no organomegaly. Extremities: Extremities normal, atraumatic, no cyanosis or edema. Pulses: 2+ and symmetric. Skin: Skin color, texture, tugor normal, no rashes or lesions. Neurologic: Alert oriented x3 cranial nerves II through XII intact, positive generalized weakness in upper extremity more than the lower extremity not able to do gait exam. Results CBC & Chem 7: 05/25/20 07:35 05/25/20 07:35 Labs: Abnormal Lab Results - Last 24 Hours (Table) 05/24/20 05/24/20 Range/Units 12:46 12:46 Plt Count 461 H (150-450) k/uL Lymphocytes # 0.8 L (1.0-4.8) k/uL Sodium 132 L (137-145) mmol/L Carbon Dioxide 19 L (22-30) mmol/L BUN 18 H (7-17) mg/dL Thrombosis Risk Factor Assmnt - DVT/VTE Prophylaxis DVT/VTE Prophylaxis: Pharmacologic Prophylaxis ordered, Mechanical Prophylaxis ordered Assessment and Plan Assessment: 1 possible stroke or TIA: Patient was hospitalized continued see neurology MRI of the brain was order had CTA of the neck with no major blockage at this point, patient to stay on anticoagulation with aspirin or Plavix is needed at this point. 2 severe dysphagia: Not clear etiology most likely myasthenia gravis will be seen urology acetylcholine receptor antibiotic will be done patient be started on Mestinon titrate dose higher to control her symptoms. 3 severe cervical radiculopathy: Patient will be seen Dr. Rick further management will be done. 4 history of breast cancer colon in remission patient is doing very well so far. 5 Hypothyroidism: Continue patient on levothyroxine 88 g daily. 6 hypertension: Remain on amlodipine 5 mg a day and lisinopril 20 mg daily. 7 abnormal therapy post breast cancer still on Arimidex 1 mg daily. 8 GI prophylaxis: Patient in Pepcid 20 mg daily. 9 DVT prophylaxis: Patient will be on Lovenox subcutaneous. CODE STATUS: Full code. Admit patient to the hospital for 1-2 nights stay.
[2020-05-25] MEDS: methylPREDNISolone SOD SUCCI 125 MG/2 ML VIAL IV SCH ×3 (01:29→16:04)
[2020-05-25] MEDS: SODIUM CHLORIDE 0.9% 1,000 ML IV SCH ×2 (05:35→18:26)
[2020-05-25] MEDS: LEVOTHYROXINE 88 MCG TAB PO SCH (05:40)
[2020-05-25 08:08] LABS: Basophils % (A) 0 %; Eosinophils % (A) 0 %; HCT 42.8 % (34.0-46.0); HGB 13.5 gm/dL (11.4-16.0); Lymphocytes # (A) 0.4 k/uL (1.0-4.8); Lymphocytes % (A) 8 %; MCH 27.2 pg (25.0-35.0); MCHC 31.4 g/dL (31.0-37.0); MCV 86.6 fL (80.0-100.0); Mean Platelet Volume 6.3; Monocytes # (A) 0.1 k/uL (0-1.0); Monocytes % (A) 1 %; Neutrophils # (A) 4.3 k/uL (1.3-7.7); Neutrophils % (A) 91 %; Platelet Count 423 k/uL (150-450); RBC 4.94 m/uL (3.80-5.40); RDW 14.5 % (11.5-15.5); WBC 4.8 k/uL (3.8-10.6)
[2020-05-25 08:11] LABS: African American GFR (CKD) >90 (>60 ml/min/1.73 sqM); Anion Gap 13 mmol/L; Blood Urea Nitrogen 15 mg/dL (7-17); Calcium 8.8 mg/dL (8.4-10.2); Carbon Dioxide 20 mmol/L (22-30); Chloride 102 mmol/L (98-107); Glucose 92 mg/dL (74-99); Non-African American GFR(CKD) 87 (>60 ml/min/1.73 sqM); Potassium 4.3 mmol/L (3.5-5.1); Sodium 135 mmol/L (137-145)
[2020-05-25] MEDS: amLODIPine 5 MG TAB PO SCH (08:23)
[2020-05-25] MEDS: PYRIDOSTIGMINE 60 MG TAB PO SCH ×3 (08:23→21:23)
[2020-05-25] MEDS: lisinopriL 20 MG TAB PO SCH (08:23)
[2020-05-25] MEDS: FAMOTIDINE 20 MG TAB PO SCH (08:23)
[2020-05-25] MEDS: ENOXAPARIN 40 MG/0.4 ML SYRINGE SQ SCH (08:23)
[2020-05-25] MEDS: ANASTROZOLE 1 MG TAB PO SCH (08:23)
--- NOTE | 2020-05-25 11:30 | P.PN ---
Subjective Progress Note Date: 05/25/20 Principal diagnosis: Dropped Head syndrome Patient was seen and examined this morning she was doing fairly well and in no pain. She is wearing her cervical collar in bed. She states that she slept fairly well last night. She denies any shortness of breath difficulty breathing she states she still has difficulty with swallowing at this time. She denies any fevers chills shortness of breath or chest pain. She denies any upper extremity numbness tingling or weakness. Objective - Vital Signs Vital signs: Vital Signs Temp 97.6 F 05/25/20 08:19 Pulse 100 05/25/20 08:19 Resp 18 05/25/20 08:19 BP 131/62 05/25/20 08:19 Pulse Ox 97 05/25/20 08:46 Intake & Output 05/24/20 05/25/20 05/25/20 18:59 06:59 18:59 Intake Total 600 Output Total 200 Balance 400 Weight 61.689 kg 60.5 kg Intake: Intake, IV Titration 600 Amount Sodium Chloride 0.9% 1, 600 000 ml @ 75 mls/hr IV . [id number] [facility] Rx#:[id number] Output: Urine 200 Other: # Voids 1 # Bowel Movements 1 - Exam GEN: AOX3, NAD VSS Inspection: Patient is in a c-collar seated in bed Palpation: No tenderness to palpation of the cervical or thoracic spine at this time Motor: 5/5 shoulder abd/EF/EE/WF/intrinsics 5/5 DF/PF/EHL/FHL/HF/KE/KF Strengths are normal for her. She is generally weak secondary to her age. Reflexes: 2/4 DTR all upper and LE Sensation intact to light touch in C5-T1 as well as L2-S1 distribution Espinoza's: Negative bilaterally Clonus: None Babinski: Negative bilaterally Cranial nerves II through XII are grossly intact - Labs CBC & Chem 7: 05/25/20 07:35 05/25/20 07:35 Labs: Abnormal Lab Results - Last 24 Hours (Table) 05/24/20 05/24/20 05/24/20 Range/Units 12:46 12:46 12:46 Plt Count 461 H (150-450) k/uL Lymphocytes # 0.8 L (1.0-4.8) k/uL Sodium 132 L (137-145) mmol/L Carbon Dioxide 19 L (22-30) mmol/L BUN 18 H (7-17) mg/dL TSH 0.096 L (0.465-4.680) mIU/L Free T4 2.48 H (0.78-2.19) ng/dL 05/25/20 05/25/20 Range/Units 07:35 07:35 Plt Count (150-450) k/uL Lymphocytes # 0.4 L (1.0-4.8) k/uL Sodium 135 L (137-145) mmol/L Carbon Dioxide 20 L (22-30) mmol/L BUN (7-17) mg/dL TSH (0.465-4.680) mIU/L Free T4 (0.78-2.19) ng/dL Assessment and Plan Assessment: 80 yo female with progressive [id number] deformity which is causing swallowing and respiratory compromise 1. Cervical spondylosis, severe 2. Questionable C3-4 hyperextension injury 3. 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 4. Possible myasthenia gravis Plan: -Hard cervical collar at all times -CT of T spine to complete bony picture. This was reviewed. 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 There are no overt fractures or dislocations of the thoracic spine. The visualized C3 4 disc space and joint still appears questionable with anterior listhesis in this area. No other fractures or dislocations can be noted. -MRI of C spine to evaluate the C3-4 region for possible injury. This was reviewed as well thankfully there does not appear to be an acute fracture at C3- C4 however there is fairly significant stenosis with a grade 1 anterior listhesis in this area. Occipital cervical and C1 2 joints appear stable at this time. There are no other fractures or dislocations noted. There is fairly severe spondylosis throughout the cervical spine with stenosis that is noted as well. -The patient may still need stabilization for the pure fact that she cannot swallow and becomes short of breath when she is up do to her severe kyphosis. She is still fairly active and to condem her to bed to keep her neck straight does not seem feasible. I spoke with son at length that respiratory compromise or GI compromise are reasons to have surgery, he was not enthralled with this, but they understand are willing to talk about it more. I will recommend at this time a hard cervical collar at all times and for us to complete imaging to look at her T spine and C spine for injury. The patient may also need a G tube placement for feeds if we consider surgery, as it can take time for swallowing to rebound even after surgical intervention. -Agree with continued myasthenia gravis treatment for the time being to see if she recovers.
--- NOTE | 2020-05-25 11:35 | P.PN ---
Subjective Progress Note Date: 05/25/20 HISTORY OF PRESENT ILLNESS 80-year-old female one of Dr. Pryor patient with past medical history of breast cancer, hypertension, severe osteoarthritis and hypothyroidism who has not been feeling well since March when developed to have trouble holding her head straight up ended up coming to [facility] at the time x-ray showed severe arthritis with possible left mild disc disease. Patient ended up going back to see Dr. Pryor more testing to be order. Lately patient is up to have severe dysphagia where patient was scheduled to have swallow study came back severely abnormal and higher possibility for central dysphagia patient ended up coming to the emergency department where was seen and evaluated ended up going for CT of the brain and the cervical spine showed moderate multilevel spondylotic change with multiple degenerative a grade 1 anterolisthesis with small vessel disease on CAT scan of the brain. With her clinical exam also notice slight ptosis of both upper eyelid patient had severe high possibility for having myasthenia gravis just a diagnosed right. Patient was seen and evaluated by neurology and testing with acetylcholine receptor binding antibody was requested. Patient was started on Mestinon 50 mg 3 times a day by neurology also requests to see Dr. Rick for possible severe abnormality with radiculopathy of the cervical spine. As of concern of her breast cancer patient has been in remission at this point in doing well. 05/25: Patient has been seen by Dr. Rick and he has ordered MRI of the cervical spine. She currently has a c-collar in place. CAT scan of the cervical and thoracic spine reveals spondylotic hypertrophic degenerative changes in the cervical and thoracic spine. Mild subluxation deformities at C3-4 and C5-6 without evidence of significant cervical bony spinal stenosis. No acute bony abnormality seen. Patient is to be seen by speech therapy today. Patient is upset that she is nothing by mouth status but we are waiting for speech therapy evaluation. Discussed briefly possibility of need for PEG tube. Repeat CBC is unremarkable with lymphocytes at 0.4. Sodium 135, potassium 4.3, BUN 15 and creatinine 0.57. TSH 0.096 and free T4 2 0.48. Acetylcholine receptor binding antibody pending. Clinic Neuro continues to follow the patient as well. She has been afebrile, heart rate 100, blood pressure 130/62, pulse ox 97% on room air. REVIEW OF SYSTEMS CONSTITUTIONAL: Well-developed no acute respiratory distress. EYES: No icterus sclerae, no conjunctivitis significant ptosis of the upper eyelid. EARS, NOSE, MOUTH, THROAT, and FACE: No sore throat, lymphadenopathy, carotid bruits or deformity. RESPIRATORY: No SOB cough or wheezes. CARDIOVASCULAR: No CP, Palpitation, PND, Orthopnea, or angina. GASTROINTESTINAL: No Abd pain, Nausea or vomiting, no Diarrhea or constipation, significant dysphagia GENITOURINARY: Negative for Hematuria or UTI, no kidney stones. INTEGUMENT/BREAST: Negative for any muscular injury with mild osteoarthritis.. HEMATOLOGIC/LYMPHATIC: Negative for bleed or purpura. MUSCULOSKELTAL: Negative for Myalgia or arthralgia. NEURLOGICAL: No LOC, Sz or syncope, blurred vision dizziness or abnormality.. BEHAVIORAL/PSYCH: Negative. ENDOCRINE: Negative. PHYSICAL EXAMINATION Gen: This is an 80-year-old female. Patient is resting in bed, c- collar is in place. She is awake and alert. HEENT: Head is atraumatic, normocephalic. Pupils equal, round. Sclerae is anicteric. Mild bilateral ptosis NECK: Supple. No JVD. No lymphadenopathy. No thyromegaly. No carotid bruit. LUNGS: Clear to auscultation. No wheezes or rhonchi. No intercostal retractions. HEART: Regular rate and rhythm. No murmur. ABDOMEN: Soft. Bowel sounds are present. No masses. No tenderness. EXTREMITIES: No pedal edema. No calf tenderness. NEUROLOGICAL: Patient is awake, alert and oriented x3. Slight slurring of speech. ASSESSMENT AND PLAN 1 possible stroke or TIA most likely myasthenia gravis. Consult with neurology appreciated. Patient has been started on Mestinon. 2 severe dysphagia: Not clear etiology most likely myasthenia gravis will be seen urology acetylcholine receptor antibiotic will be done patient be started on Mestinon titrate dose higher to control her symptoms. 3 severe cervical radiculopathy: Patient will be seen Dr. Rick further management will be done. MRI of cervical spine. 4 history of breast cancer colon in remission patient is doing very well so far. 5 Hypothyroidism: Continue patient on levothyroxine 88 g daily. 6 hypertension: Remain on amlodipine 5 mg a day and lisinopril 20 mg daily. 7 abnormal therapy post breast cancer still on Arimidex 1 mg daily. 8 GI prophylaxis: Patient in Pepcid 20 mg daily. 9 DVT prophylaxis: Patient will be on Lovenox subcutaneous. CODE STATUS: Full code. DISCHARGE PLAN To be determined. PT and OT consults added. Impression and plan of care have been directed as dictated by the signing physician. Pat Zheng nurse practitioner acting as scribe for signing physician. Objective - Vital Signs Vital signs: Vital Signs Temp 97.6 F 05/25/20 08:19 Pulse 100 05/25/20 08:19 Resp 18 05/25/20 08:19 BP 131/62 05/25/20 08:19 Pulse Ox 97 05/25/20 08:46 Intake & Output 05/24/20 05/25/20 05/25/20 18:59 06:59 18:59 Intake Total 600 Output Total 200 Balance 400 Weight 61.689 kg 60.5 kg Intake: Intake, IV Titration 600 Amount Sodium Chloride 0.9% 1, 600 000 ml @ 75 mls/hr IV . [id number] PARRIS Rx#:[id number] Output: Urine 200 Other: # Voids 1 # Bowel Movements 1 - Labs CBC & Chem 7: 05/25/20 07:35 05/25/20 07:35 Labs: Abnormal Lab Results - Last 24 Hours (Table) 05/24/20 05/24/20 05/24/20 Range/Units 12:46 12:46 12:46 Plt Count 461 H (150-450) k/uL Lymphocytes # 0.8 L (1.0-4.8) k/uL Sodium 132 L (137-145) mmol/L Carbon Dioxide 19 L (22-30) mmol/L BUN 18 H (7-17) mg/dL TSH 0.096 L (0.465-4.680) mIU/L Free T4 2.48 H (0.78-2.19) ng/dL 05/25/20 05/25/20 Range/Units 07:35 07:35 Plt Count (150-450) k/uL Lymphocytes # 0.4 L (1.0-4.8) k/uL Sodium 135 L (137-145) mmol/L Carbon Dioxide 20 L (22-30) mmol/L BUN (7-17) mg/dL TSH (0.465-4.680) mIU/L Free T4 (0.78-2.19) ng/dL
--- NOTE | 2020-05-25 12:13 | MR ---
EXAMINATION TYPE: MR cervical spine without contrast. DATE OF EXAM: 05/25/2020 COMPARISON: CT 05/24/2020 HISTORY: Fall, fx, pain TECHNIQUE: Multiplanar, multisequence images of the cervical spine were acquired. C2-C3: There is a posterior disc bulge present. No significant spinal stenosis or foraminal encroachm ent. C3-C4: The left side show some foraminal encroachment greater than right due to uncovertebral joint h ypertrophy and facet arthropathy. Listhesis contributes to cause some moderate spinal stenosis. Poste rior extension endplate disc complex causes mild anterior mass effect on the thecal sac. C4-C5: Listhesis contributes to cause some mild spinal stenosis. There is a posterior central disc he rniation causing contact with the anterior cervical cord. There is left-sided greater than right fora carlos encroachment due to uncovertebral joint hypertrophy and facet arthropathy. C5-C6: Posterior extension of endplate disc complex results in mild spinal stenosis. There is bilater al foraminal encroachment right greater than left. C6-C7: Posterior disc central disc herniation causes slight anterior mass effect on the thecal sac. N o significant foraminal encroachment. C7-T1: There is a posterior central disc herniation contacting the anterior cervical cord. No signifi cant spinal stenosis or foraminal encroachment. Cervical segments are intact. There is normal alignment. Cervical spinal cord is of normal signal, there is questionable increased signal noted at the C4-5 level seen on sagittal image #8 series 401, this may be artifactual, is not well reproduced on axial images. Craniovertebral junction relationsh ips are within normal limits. There is multilevel spondylosis. Anterolisthesis grade 1 C3-4, C4-5, r etrolisthesis grade 1 C5-6. There is multilevel endplate discogenic marrow signal change. Loss of dis c height signal is greatest at C5-6 but also present at C3-4, C4-5. No evident fracture. Cervical ayush tebral bodies show preserved height. Spinal curvature is present, patient is not showing in plane trevor earance at multiple levels. Accentuated cervical lordosis is present. IMPRESSION: Degenerative disc disease, multilevel foraminal encroachment, spinal stenosis. Additional findings ab ove, cord signal change may be artifactual.
--- NOTE | 2020-05-25 15:57 | P.PN ---
Subjective Progress Note Date: 05/25/20 Patient was seen for a follow-up. Patient is laying comfortably in the bed. Patient speech is much improved. Apparently last night I called the nurse at around 12:30 AM about her condition. Turns out patient did not receive Mestinon, as she was unable to swallow at all. Started patient on Solu-Medrol. 60 mg IV every 8 hours for possible myasthenia gravis. Patient was transferred from observation to stepdown unit for closer monitoring. This morning patient appears much better. Please refer to examination. Objective - Vital Signs Vital signs: Vital Signs Temp 97.4 F L 05/25/20 12:00 Pulse 105 H 05/25/20 12:00 Resp 16 05/25/20 14:00 BP 140/65 05/25/20 12:00 Pulse Ox 97 05/25/20 12:00 Intake & Output 05/24/20 05/25/20 05/25/20 18:59 06:59 18:59 Intake Total 600 Output Total 200 Balance 400 Weight 61.689 kg 60.5 kg Intake: Intake, IV Titration 600 Amount Sodium Chloride 0.9% 1, 600 000 ml @ 75 mls/hr IV . [id number] PARRIS Rx#:[id number] Output: Urine 200 Other: # Voids 1 # Bowel Movements 1 - Exam Patient is alert and awake, in no distress. Speech is much clearer, eyes are much more widely open. Less ptosis. Her facial strength has improved although still weak. Muscle strength is improved in the deltoids about 5- bilaterally. Biceps, triceps and ships or barges loader are all normal. Patient's muscle strength in the ankles are normal. Hip flexion is 4+5-bilaterally. - Labs CBC & Chem 7: 05/25/20 07:35 05/25/20 07:35 Labs: Abnormal Lab Results - Last 24 Hours (Table) 05/24/20 05/25/20 05/25/20 Range/Units 12:46 07:35 07:35 Lymphocytes # 0.4 L (1.0-4.8) k/uL Sodium 135 L (137-145) mmol/L Carbon Dioxide 20 L (22-30) mmol/L TSH 0.096 L (0.465-4.680) mIU/L Free T4 2.48 H (0.78-2.19) ng/dL Assessment and Plan Assessment: * Probable Myasthenia gravis, with acute exacerbation. Plan: * Patient currently on Solu-Medrol 60 mg every 8 hours. Patient has definitely improved as compared to yesterday. If able to swallow, will increase Mestinon to 30 mg 4 times a day. * Await Acetylcholine receptor antibodies. * Thyroid functions tests shows low TSH 0.096, with elevated free T4 2 0.48. Patient would need adjustment in thyroid hormone replacement. * CT of the chest to rule out thymoma, if myasthenia gravis is confirmed with antibodies. * Speech and swallow to closely follow as well. * MRI of the cervical spine showed degenerative disc disease, multilevel foraminal encroachment, spinal stenosis. Anterolisthesis grade 1 at C3-4, C4- 5, retrolisthesis grade 1 C5-6. No critical spinal canal stenosis. * DVT prophylaxis. Patient on Lovenox 40 mg daily.
[2020-05-25 16:53] LABS: Glucose,Whole Blood 99 mg/dL (75-99)
[2020-05-25 20:10] LABS: Glucose,Whole Blood 103 mg/dL (75-99)
[2020-05-26] MEDS: methylPREDNISolone SOD SUCCI 125 MG/2 ML VIAL IV SCH ×2 (00:31→09:06)
[2020-05-26 06:16] LABS: Glucose,Whole Blood 125 mg/dL (75-99)
[2020-05-26] MEDS: SODIUM CHLORIDE 0.9% 1,000 ML IV SCH (07:09)
[2020-05-26] MEDS: LEVOTHYROXINE 88 MCG TAB PO SCH (07:09)
[2020-05-26] MEDS: lisinopriL 20 MG TAB PO SCH (07:51)
[2020-05-26] MEDS: PYRIDOSTIGMINE 60 MG TAB PO SCH (07:51)
[2020-05-26] MEDS: ANASTROZOLE 1 MG TAB PO SCH (07:51)
[2020-05-26] MEDS: amLODIPine 5 MG TAB PO SCH (07:51)
[2020-05-26] MEDS: FAMOTIDINE 20 MG TAB PO SCH (07:51)
--- NOTE | 2020-05-26 09:03 | P.PN ---
Subjective Progress Note Date: 05/26/20 Principal diagnosis: Dropped Head syndrome Myasthenia gravis Patient was seen and examined this morning. She is doing fairly well. She is in a hard collar now. She states that her head does not feel is heavy and that she is able to lift it up better. She still cannot swallow and is failed a swallowing test. She states that her breathing is better however. She denies any numbness or tingling she denies any pain or weakness in her upper extremities. As a fevers chills shortness of breath or chest pain at this time. Objective - Vital Signs Vital signs: Vital Signs Temp 97.8 F 05/25/20 23:37 Pulse 119 H 05/26/20 03:55 Resp 18 05/26/20 03:55 BP 162/74 05/26/20 03:55 Pulse Ox 96 05/26/20 03:55 Intake & Output 05/25/20 05/26/20 05/26/20 18:59 06:59 18:59 Intake Total 480 Balance 480 Weight 61 kg Intake: Oral 480 Other: Voiding Method Bedpan Diaper Incontinent # Voids 1 - Exam GEN: AOX3, NAD VSS Inspection: Patient is in a c-collar seated in bed Palpation: No tenderness to palpation of the cervical or thoracic spine at this time Motor: 5/5 shoulder abd/EF/EE/WF/intrinsics 5/5 DF/PF/EHL/FHL/HF/KE/KF Strengths are normal for her. She is generally weak secondary to her age. Reflexes: 2/4 DTR all upper and LE Sensation intact to light touch in C5-T1 as well as L2-S1 distribution Espinoza's: Negative bilaterally Clonus: None Babinski: Negative bilaterally Cranial nerves II through XII are grossly intact - Labs CBC & Chem 7: 05/25/20 07:35 05/25/20 07:35 Labs: Abnormal Lab Results - Last 24 Hours (Table) 05/25/20 05/26/20 Range/Units 20:09 06:15 POC Glucose (mg/dL) 103 H 125 H (75-99) mg/dL Assessment and Plan Assessment: 80 yo female with progressive [id number] deformity which is causing swallowing and respiratory compromise 1. Cervical spondylosis, severe 2. Thoracic kyphosis 3. No acute C-spine fracture 4. Likely myasthenia gravis Plan: -Hard cervical collar -MRI reviewed, there are no acute C-spine fractures which can be seen. There is anterolisthesis of C3 on C4 and there is severe stenosis of C3 4 which is noted a pincer-type lesion. However there is no myelomalacia at this area. The remainder of the cervical spine shows spondylosis without fracture dislocation. C1 to an occiput C1 joints are intact and stable -Agree with continued myasthenia gravis treatment for the time being to see if she recovers. -No orthopedic spinal surgery planned at this time
[2020-05-26] MEDS: ENOXAPARIN 40 MG/0.4 ML SYRINGE SQ SCH (09:06)
--- NOTE | 2020-05-26 10:29 | P.PN ---
Subjective Progress Note Date: 05/26/20 HISTORY OF PRESENT ILLNESS 80-year-old female one of Dr. Pryor patient with past medical history of breast cancer, hypertension, severe osteoarthritis and hypothyroidism who has not been feeling well since March when developed to have trouble holding her head straight up ended up coming to [facility] at the time x-ray showed severe arthritis with possible left mild disc disease. Patient ended up going back to see Dr. Pryor more testing to be order. Lately patient is up to have severe dysphagia where patient was scheduled to have swallow study came back severely abnormal and higher possibility for central dysphagia patient ended up coming to the emergency department where was seen and evaluated ended up going for CT of the brain and the cervical spine showed moderate multilevel spondylotic change with multiple degenerative a grade 1 anterolisthesis with small vessel disease on CAT scan of the brain. With her clinical exam also notice slight ptosis of both upper eyelid patient had severe high possibility for having myasthenia gravis just a diagnosed right. Patient was seen and evaluated by neurology and testing with acetylcholine receptor binding antibody was requested. Patient was started on Mestinon 50 mg 3 times a day by neurology also requests to see Dr. Rick for possible severe abnormality with radiculopathy of the cervical spine. As of concern of her breast cancer patient has been in remission at this point in doing well. 05/25: Patient has been seen by Dr. Rick and he has ordered MRI of the cervical spine. She currently has a c-collar in place. CAT scan of the cervical and thoracic spine reveals spondylotic hypertrophic degenerative changes in the cervical and thoracic spine. Mild subluxation deformities at C3-4 and C5-6 without evidence of significant cervical bony spinal stenosis. No acute bony abnormality seen. Patient is to be seen by speech therapy today. Patient is upset that she is nothing by mouth status but we are waiting for speech therapy evaluation. Discussed briefly possibility of need for PEG tube. Repeat CBC is unremarkable with lymphocytes at 0.4. Sodium 135, potassium 4.3, BUN 15 and creatinine 0.57. TSH 0.096 and free T4 2 0.48. Acetylcholine receptor binding antibody pending. Clinic Neuro continues to follow the patient as well. She has been afebrile, heart rate 100, blood pressure 130/62, pulse ox 97% on room air. 05/26: Patient has been evaluated by speech and is at risk for all consistencies and not safe for any oral intake. Discussed with the patient option of PEG tube. This was also discussed with the patient's son while. Subsequently, discussion with Dr. Rose that patient may benefit from IVIG, NG tube with Mestinon 60 mg 3 times daily and if she has good results, may not require PEG tube placement. He has contacted the patient's son and he is in agreement. MRI of the cervical spine reveals degenerative disc disease, multilevel foraminal encroachment, spinal stenosis. Orthopedic spine is still recommending hard collar. Patient has been afebrile, heart rate 113, blood pressure 159/72, pulse ox 94% on room air. GI was consult within updated regarding plan to postpone PEG tube placement and observe for improvement with IVIG and Mestinon. REVIEW OF SYSTEMS CONSTITUTIONAL: Well-developed no acute respiratory distress. No fever. No chills. EYES: No icterus sclerae, no conjunctivitis significant ptosis of the upper eyelid. EARS, NOSE, MOUTH, THROAT, and FACE: No sore throat, lymphadenopathy, carotid bruits or deformity. RESPIRATORY: No SOB cough or wheezes. CARDIOVASCULAR: No CP, Palpitation, PND, Orthopnea, or angina. GASTROINTESTINAL: No Abd pain, Nausea or vomiting, no Diarrhea or constipation, significant dysphagia GENITOURINARY: Negative for Hematuria or UTI, no kidney stones. INTEGUMENT/BREAST: Negative for any muscular injury with mild osteoarthritis. HEMATOLOGIC/LYMPHATIC: Negative for bleed or purpura. MUSCULOSKELTAL: Negative for Myalgia or arthralgia. NEURLOGICAL: No LOC, Sz or syncope, blurred vision dizziness or abnormality. Dysphagia. BEHAVIORAL/PSYCH: Negative. ENDOCRINE: Negative. PHYSICAL EXAMINATION Gen: This is an 80-year-old female. Patient is resting in bed, hard c-collar is in place. She is awake and alert. HEENT: Head is atraumatic, normocephalic. Pupils equal, round. Sclerae is anicteric. Mild bilateral ptosis NECK: Supple. No JVD. No lymphadenopathy. No thyromegaly. No carotid bruit. LUNGS: Clear to auscultation. No wheezes or rhonchi. No intercostal retractions. HEART: Regular rate and rhythm. No murmur. ABDOMEN: Soft. Bowel sounds are present. No masses. No tenderness. EXTREMITIES: No pedal edema. No calf tenderness. NEUROLOGICAL: Patient is awake, alert and oriented x3. Slight slurring of speech. ASSESSMENT AND PLAN 1 myasthenia gravis. Consult with neurology appreciated. Patient has been started on Mestinon but unable to receive it because of swallowing issues. NG tube to be placed today, Mestinon 60 mg 3 times daily, IVIG. 2 severe dysphagia secondary to myasthenia gravis. Neurology consult appreciated. Obtained acetylcholine receptor antibody. Consult for GI regarding PEG tube placement. 3 severe cervical radiculopathy: Patient will be seen Dr. Rick further ma nagement will be done. MRI of cervical spine as above. Continues hard cervical collar. 4 history of breast cancer colon in remission patient is doing very well so far. 5 Hypothyroidism: Continue patient on levothyroxine 88 g daily. 6 hypertension: Remain on amlodipine 5 mg a day and lisinopril 20 mg daily. 7 abnormal therapy post breast cancer still on Arimidex 1 mg daily. 8 GI prophylaxis: Patient in Pepcid 20 mg daily. 9 DVT prophylaxis: Patient will be on Lovenox subcutaneous. CODE STATUS: Full code. DISCHARGE PLAN To be determined. PT and OT consults added. Impression and plan of care have been directed as dictated by the signing physician. Pat Zheng nurse practitioner acting as scribe for signing physician. Objective - Vital Signs Vital signs: Vital Signs Temp 97.8 F 05/25/20 23:37 Pulse 119 H 05/26/20 03:55 Resp 18 05/26/20 03:55 BP 162/74 05/26/20 03:55 Pulse Ox 96 05/26/20 03:55 Intake & Output 05/25/20 05/26/20 05/26/20 18:59 06:59 18:59 Intake Total 480 Balance 480 Weight 61 kg Intake: Oral 480 Other: Voiding Method Bedpan Diaper Incontinent # Voids 1 - Labs CBC & Chem 7: 05/25/20 07:35 05/25/20 07:35 Labs: Abnormal Lab Results - Last 24 Hours (Table) 05/25/20 05/26/20 Range/Units 20:09 06:15 POC Glucose (mg/dL) 103 H 125 H (75-99) mg/dL
[2020-05-26 11:48] LABS: Glucose,Whole Blood 126 mg/dL (75-99)
[2020-05-26] MEDS ORDERED: IMMUNE GLOBULIN (GAMMAGARD) 20 GM in EMPTY BAG 1 BAG IV ONE (12:00)
[2020-05-26] MEDS ORDERED: IMMUNE GLOBULIN (GAMMAGARD) 5 GM in EMPTY BAG 1 BAG IV ONE (12:00)
[2020-05-26] MEDS: PYRIDOSTIGMINE 60 MG TAB NG-TUBE SCH ×2 (12:49→14:40)
--- NOTE | 2020-05-26 14:03 | P.PN ---
Subjective Progress Note Date: 05/26/20 05/26/2020: Patient appears slightly more worse today. Still with slurred speech, facial weakness, bilateral ptosis. Telemetry monitoring only showing sinus tachycardia. 05/25/2020: Patient was seen for a follow-up. Patient is laying comfortably in the bed. Patient speech is much improved. Apparently last night I called the nurse at around 12:30 AM about her condition. Turns out patient did not receive Mestinon, as she was unable to swallow at all. Started patient on Solu-Medrol. 60 mg IV every 8 hours for possible myasthenia gravis. Patient was transferred from observation to stepdown unit for closer monitoring. This morning patient appears much better. Please refer to examination. Objective - Vital Signs Vital signs: Vital Signs Temp 97.2 F L 05/26/20 12:00 Pulse 102 H 05/26/20 13:39 Resp 18 05/26/20 12:00 BP 136/73 05/26/20 12:00 Pulse Ox 97 05/26/20 12:00 Intake & Output 05/25/20 05/26/20 05/26/20 18:59 06:59 18:59 Intake Total 480 45 Output Total 200 Balance 480 -155 Weight 61 kg Intake: IV 30 Invasive Line 1 10 Invasive Line 2 20 Intake, IV Titration 15 Amount Immune Globulin ( 15 Gammagard) 5 gm In Empty Bag 1 bag @ Titrate IV . Q0M ONE Rx#:[id number] Oral 480 Output: Urine 200 Other: Voiding Method Bedpan Diaper Diaper Incontinent Incontinent # Voids 1 - Exam Patient is alert and awake, in no distress. Patient has slurred speech, bifacial weakness, weakness of eye closure, bilateral ptosis. No definitive diplopia. Patient has significant dysphagia. No improvement at all, if it appears slightly worse. Patient's muscle strength appears normal in the biceps, triceps, director food and beverage. Deltoid is 4+ bilaterally. Ankles are normal. - Labs CBC & Chem 7: 05/25/20 07:35 05/25/20 07:35 Labs: Abnormal Lab Results - Last 24 Hours (Table) 05/25/20 05/26/20 05/26/20 Range/Units 20:09 06:15 11:46 POC Glucose (mg/dL) 103 H 125 H 126 H (75-99) mg/dL Assessment and Plan Assessment: * Probable Myasthenia gravis, with acute exacerbation/crisis. Plan: * Patient continues to have severe dysphagia, not able to take any medications. NG tube placement was recommended so patient can at least take Mestinon. However patient not able to swallow and follow instructions for NG tube. * Patient probably has significant exacerbation of myasthenia gravis, perhaps crisis. She has failed corticosteroids. We will start IVIG. Patient's son was informed of possible risk and benefits. Continue Lovenox 40 mg subcu for DVT prophylaxis. * Possible PEG placement in the morning, if no improvement overnight. Watch for nutrition, may need IV fluids. * Await Acetylcholine receptor antibodies. * Thyroid functions tests shows low TSH 0.096, with elevated free T4 2.48. Patient would need adjustment in thyroid hormone replacement. * CT of the chest to rule out thymoma, if myasthenia gravis is confirmed with antibodies. * Speech and swallow to closely follow as well. * MRI of the cervical spine showed degenerative disc disease, multilevel foraminal encroachment, spinal stenosis. Anterolisthesis grade 1 at C3-4, C4- 5, retrolisthesis grade 1 C5-6. No critical spinal canal stenosis. * DVT prophylaxis. Patient on Lovenox 40 mg daily. * Discussed with patient's son Mr. Acosta, and primary team.
[2020-05-26] MEDS ORDERED: PYRIDOSTIGMINE 60 MG TAB NG-TUBE SCH (16:00)
[2020-05-26] MEDS: METOPROLOL TARTRATE 5 MG/5 ML VIAL IVP SCH (16:21)
[2020-05-26] MEDS ORDERED: LORazepam 2 MG/ML INJ IV STA (18:39)
[2020-05-26 20:31] LABS: Glucose,Whole Blood 124 mg/dL (75-99)
--- NOTE | 2020-05-26 22:06 | P.CONS ---
History of Present Illness - Reason for Consult Consult date: 05/26/20 PEG tube Requesting physician: Sawyer Shrestha - Chief Complaint Weakness, oropharyngeal dysphagia - History of Present Illness 80-year-old female with a medical history significant for osteoarthritis, hypothyroidism, breast cancer and hypertension who presented to the hospital due to weakness, difficulty holding her head up and oropharyngeal dysphagia/difficulty swallowing. The patient has been seen by the neurology service and concern at this time is for a myasthenia gravis crisis. The patient has received treatment with IVIG however if symptoms persist. The patient was also to be started on oral therapy, however the patient has been unable to swallow medications and attempts at nasogastric tube placement have been unsuccessful. The patient is seen in bed with her bedside symptoms at this time. Review of Systems REVIEW OF SYSTEMS: CONSTITUTIONAL: Denies any fevers, chills, weight change or fatigue. CARDIOVASCULAR: Denies any chest pain, palpitations high or low blood pressures RESPIRATORY: Denies any shortness of breath, hemoptysis or cough. GENITOURINARY: No dysuria or hematuria. MUSCULOSKELETAL: Patient has been suffering from weakness particularly in the neck and holding her head up. SKIN: Denies any new rashes or lesions, jaundice or pallor. PSYCHIATRIC: Denies any depression or anxiety. NEUROLOGY: Denies headache, denies any new focal deficits. EARS/NOSE/THROAT: No recent hearing change, congestion, nasal discharge or sore throat. EYES: No pain in eyes, discharge or change in vision. GASTROINTESTINAL: As per HPI. Past Medical History Past Medical History: Cancer, Hypertension, Osteoarthritis (OA) Additional Past Medical History / Comment(s): HYPOTHYROID,BREAST CANCER SEPTEMBER 2013, RASH ON LEFT BREAST -SEEN AT OUTPT CLINIC AND STARTED ANTIBIOTIC 10/22/13, NOTIFIED DR MCKENZIE OFFICE. STATES INCISIONS ARE HEALING WELL FROM BREAST SURGERY. 10/06/13 History of Any Multi-Drug Resistant Organisms: None Reported Past Surgical History: Breast Surgery, Hysterectomy Additional Past Surgical History / Comment(s): SINUS SURGERY, LEFT BREAST LUMPECTOMY 10/06/2013 Past Anesthesia/Blood Transfusion Reactions: No Reported Reaction Additional Past Anesthesia/Blood Transfusion Reaction / Comm: STATES PT WAS TOLD SHE NEEDED OXYGEN DURING SURGERY AND TO LET ANESTHESIA KNOW. Past Psychological History: No Psychological Hx Reported Smoking Status: Former smoker Past Alcohol Use History: None Reported Past Drug Use History: None Reported - Past Family History Sister(s) Family Medical History: Cancer Medications and Allergies Home Medications Medication Instructions Recorded Confirmed Type Levothyroxine Sodium [Synthroid] 88 mcg PO DAILY 10/23/13 05/24/20 History Anastrozole [Arimidex] 1 mg PO DAILY 04/17/20 05/24/20 History amLODIPine [Norvasc] 5 mg PO DAILY 04/17/20 05/24/20 History lisinopriL [Zestril] 20 mg PO DAILY 04/17/20 05/24/20 History Allergies Allergy/AdvReac Type Severity Reaction Status Date / Time No Known Allergies Allergy Verified 05/24/20 13:31 Physical Exam Vitals: Vital Signs Temp Pulse Resp BP Pulse Ox 05/26/20 16:53 101 H 05/26/20 16:00 98.2 F 118 H 18 153/75 98 05/26/20 13:39 102 H 05/26/20 12:00 97.2 F L 120 H 18 136/73 97 05/26/20 11:58 130 H 05/26/20 08:49 97.6 F 113 H 18 159/72 94 L 05/26/20 03:55 119 H 18 162/74 96 05/26/20 00:57 115 H 18 05/25/20 23:37 97.8 F 115 H 18 145/71 95 Intake and Output 05/26/20 05/26/20 05/26/20 06:59 14:59 22:59 Intake Total 60 205 Output Total 200 Balance -140 205 Intake: IV 30 20 Invasive Line 1 10 Invasive Line 2 20 Invasive Line 3 20 Intake, IV Titration 30 185 Amount Immune Globulin ( 15 185 Gammagard) 20 gm In Empty Bag 1 bag @ Per Protocol IV .Q0M ONE Rx#: [id number] Immune Globulin ( 15 Gammagard) 5 gm In Empty Bag 1 bag @ Titrate IV . Q0M ONE Rx#:[id number] Output: Urine 200 Other: Voiding Method Bedpan Diaper Diaper Incontinent Incontinent # Voids 1 Weight 61 kg 61 kg On physical examination, patient appears comfortable in no apparent distress. HEAD: Normocephalic, atraumatic. EYES: No scleral icterus. No conjunctival injection. MOUTH: No lesions, tongue midline. NECK: Trachea midline, no gross abnormalities. CHEST: Clear to auscultation with no wheezing or rhonchi appreciated. HEART: Regular rate and rhythm. ABDOMEN: Soft, S1-S2 appreciated. Bowel sounds are positive. No organomegaly. No guarding or rigidity. EXTREMITIES: No pedal edema. SKIN: No rashes, no jaundice. NEUROLOGIC: Alert and oriented only to person. Bilateral upper and lower extremity weakness as well as difficulty holding her head up likely secondary to myasthenia gravis versus. Results CBC & Chem 7: 05/25/20 07:35 05/25/20 07:35 Labs: Abnormal Lab Results - Last 24 Hours (Table) 05/26/20 05/26/20 05/26/20 Range/Units 06:15 11:46 20:29 POC Glucose (mg/dL) 125 H 126 H 124 H (75-99) mg/dL Chest x-ray: report reviewed Assessment and Plan (1) Oropharyngeal dysphagia Narrative/Plan: 80-year-old female with a medical comorbidities presenting to the hospital for multiple complaints including weakness, difficulty holding her head up and oropharyngeal dysphagia. The patient is currently being treated for a myasthenia gravis crisis and receiving IVIG therapy. The patient's treatment plan includes oral medications however she has been unable to swallow the medications and his gastric tube placement has been unsuccessful. She underwent a swallow study in the outpatient setting on 06/03/2020 showing impaired oropharyngeal swallow, posterior pharyngeal wall peristalsis absence with epiglottic inversion with concern for silent aspiration of thin liquids. Current Visit: Yes Status: Acute Code(s): R13.12 - DYSPHAGIA, OROPHARYNGEAL PHASE SNOMED Code(s): 43216309 Plan: Supportive care Nothing by mouth Continue to monitor CBC, BMP, LFTs Appreciate recommendations from the neurology service Video swallow evaluation reviewed Case discussed with the patient and her who is bedside, the patient has continued to suffer from oropharyngeal dysphagia in spite of treatment, with complete treatment plan and GERD by the patient's inability to take oral medications, at this time the plan is for PEG tube placement, with all of the risks, benefits and possible, patient of the procedure explained with the patient and her at length Plan is for EGD with PEG tube placement tomorrow, unless symptoms improve Thank you for allowing us to participate in the care of the patient
[2020-05-27] MEDS: SODIUM CHLORIDE 0.9% 1,000 ML IV SCH ×2 (01:14→08:30)
[2020-05-27] MEDS: PYRIDOSTIGMINE 60 MG TAB NG-TUBE SCH ×4 (01:15→20:18)
[2020-05-27] MEDS: METOPROLOL TARTRATE 5 MG/5 ML VIAL IVP SCH ×5 (01:16→23:16)
[2020-05-27] MEDS: LEVOTHYROXINE 88 MCG TAB PO SCH (05:03)
[2020-05-27 06:23] LABS: Glucose,Whole Blood 90 mg/dL (75-99)
[2020-05-27 07:58] LABS: HCT 43.2 % (34.0-46.0); HGB 13.7 gm/dL (11.4-16.0); MCH 27.3 pg (25.0-35.0); MCHC 31.6 g/dL (31.0-37.0); MCV 86.4 fL (80.0-100.0); Mean Platelet Volume 6.5; Platelet Count 423 k/uL (150-450); RDW 14.9 % (11.5-15.5); WBC 8.7 k/uL (3.8-10.6)
[2020-05-27 08:05] LABS: Prothrombin Time 10.7 sec (9.0-12.0)
[2020-05-27] MEDS: amLODIPine 5 MG TAB PO SCH (08:14)
[2020-05-27] MEDS: ANASTROZOLE 1 MG TAB PO SCH (08:15)
[2020-05-27] MEDS: lisinopriL 20 MG TAB PO SCH (08:15)
[2020-05-27] MEDS: FAMOTIDINE 20 MG TAB PO SCH (08:15)
[2020-05-27 08:17] LABS: African American GFR (CKD) >90 (>60 ml/min/1.73 sqM); Anion Gap 6 mmol/L; Calcium 8.7 mg/dL (8.4-10.2); Carbon Dioxide 26 mmol/L (22-30); Chloride 108 mmol/L (98-107); Glucose 122 mg/dL (74-99); Non-African American GFR(CKD) 87 (>60 ml/min/1.73 sqM); Potassium 4.1 mmol/L (3.5-5.1); Sodium 140 mmol/L (137-145)
[2020-05-27 08:23] LABS: Blood Urea Nitrogen 24 mg/dL (7-17)
[2020-05-27] MEDS: ENOXAPARIN 40 MG/0.4 ML SYRINGE SQ SCH ×2 (08:29→17:18)
--- NOTE | 2020-05-27 10:46 | P.PN ---
Subjective Progress Note Date: 05/27/20 Patient was seen at bedside and is accompanied by her son. Her son stated by end of March 2020, she had acute neck drop then later developed diploplia out of both eyes (horizontal). Then in early to mid April started having dysphagia initially to solids then to liquids. Having weakness of bilateral lower extremities that has been worsening. Patient received IVIG dose yesterday. Objective - Vital Signs Vital signs: Vital Signs Temp 98.2 F 05/26/20 16:00 Pulse 84 05/27/20 04:00 Resp 18 05/27/20 04:00 BP 139/77 05/27/20 04:00 Pulse Ox 97 05/27/20 04:00 Intake & Output 05/26/20 05/27/20 05/27/20 18:59 06:59 18:59 Intake Total 245 20 15 Output Total 200 Balance 45 20 15 Weight 61 kg 54.5 kg Intake: IV 30 20 Invasive Line 1 10 Invasive Line 2 20 Invasive Line 3 20 Intake, IV Titration 215 15 Amount Immune Globulin ( 200 Gammagard) 20 gm In Empty Bag 1 bag @ Per Protocol IV .Q0M ONE Rx#: [id number] Immune Globulin ( 15 Gammagard) 20 gm In Empty Bag 1 bag @ Per Protocol IV .Q0M ONE Rx#: [id number] Immune Globulin ( 15 Gammagard) 5 gm In Empty Bag 1 bag @ Titrate IV . Q0M ONE Rx#:[id number] Output: Urine 200 Other: Voiding Method Diaper Diaper Incontinent Incontinent - Exam General: Is lying in bed and is in no acute distress. HENT: Neck flexion is 4- while extension is 5. Neurological exam. Somewhat limited because of cooperation. Higher mental functions: Patient is alert and awake, oriented to self and year. Following simple commands. No aphasia or neglect. Cranial Nerves: Pupils are round, equal, (3-4mm) and reactive to light bilaterally. Visual filed are full to confrontation. EOM intact and no nystagmus. Could not assess facial sensation because of cooperation. Bifacial weakness, weakness of eye closure, bilateral ptosis. No definitive dip lopia (at time had diplopia horizontal out of left eye but not consistent. Patient has slurred speech. Patient has significant dysphagia. Has moderate to signficiant hearing loss out of both ears. Has phonic speech. Motor: Gait is deferred. Patient's muscle strength appears normal in the bicep s, triceps, grant writer. Deltoid is 4+ bilaterally. While lower extremities hard to assess because of cooperation. Was able to lift bilateral extremities above gravity without focality. Ankles are normal. Sensation: Could not assess sensation because of cooperation. - Labs CBC & Chem 7: 05/27/20 07:17 12 07:17 Labs: Abnormal Lab Results - Last 24 Hours (Table) 05/26/20 05/26/20 05/27/20 Range/Units 11:46 20:29 07:17 Chloride 108 H (98-107) mmol/L BUN 24 H (7-17) mg/dL Glucose 122 H (74-99) mg/dL POC Glucose (mg/dL) 126 H 124 H (75-99) mg/dL Assessment and Plan Assessment: 1-year-old woman that according to her son has been having head drop since the end of March 2020. He stated that the during the end of March she was complaining of a horizontal diplopia out of both eyes. And the early to mid April 2020 and she doesn't look the dysphagia initially to solids than liquids. She's been having weakness of her lower extremities and that's been getting worse for the last couple months according to the son. She does have history of breast cancer in 2013 and that he stated that she was in remission he thinks that she had the radiation therapy. * Probable Myasthenia gravis, with acute exacerbation/crisis. Plan: * Patient continues to have severe dysphagia, not able to take any medications. NG tube placement was recommended so patient can at least take Mestinon. However patient not able to swallow and follow instructions for NG tube. * Patient probably has significant exacerbation of myasthenia gravis, perhaps crisis. She has failed corticosteroids. On IVIG day #2 out of 5. Patient's son was informed of possible risk and benefits. Continue Lovenox 40 mg subcu for DVT prophylaxis. * Possible PEG placement but the son wants to hold off for now and possible r econsider in a couple days. Watch for nutrition, may need IV fluids. * Await Acetylcholine receptor antibodies. * Recommend single-fiber EMG study as an outpatient took confirm the diagnosis of myasthenia gravis. * If IVIG doesn't help possibly consider plasma exchange. * Thyroid functions tests shows low TSH 0.096, with elevated free T4 2.48. Patient would need adjustment in thyroid hormone replacement. * CT of the chest to rule out thymoma, if myasthenia gravis is confirmed with antibodies. * Speech and swallow to closely follow as well. * MRI of the cervical spine showed degenerative disc disease, multilevel foraminal encroachment, spinal stenosis. Anterolisthesis grade 1 at C3-4, C4- 5, retrolisthesis grade 1 C5-6. No critical spinal canal stenosis. * Orthopedic surgery team is on board and they feel no myelomalacia and No Orthopedic surgery at this time. * DVT prophylaxis. Patient on Lovenox 40 mg daily. * The plan was discussed with the patient's son Time with Patient: Less than 30
--- NOTE | 2020-05-27 10:47 | P.PN ---
Subjective Progress Note Date: 05/27/20 HISTORY OF PRESENT ILLNESS 80-year-old female one of Dr. Pryor patient with past medical history of breast cancer, hypertension, severe osteoarthritis and hypothyroidism who has not been feeling well since March when developed to have trouble holding her head straight up ended up coming to [facility] at the time x-ray showed severe arthritis with possible left mild disc disease. Patient ended up going back to see Dr. Pryor more testing to be order. Lately patient is up to have severe dysphagia where patient was scheduled to have swallow study came back severely abnormal and higher possibility for central dysphagia patient ended up coming to the emergency department where was seen and evaluated ended up going for CT of the brain and the cervical spine showed moderate multilevel spondylotic change with multiple degenerative a grade 1 anterolisthesis with small vessel disease on CAT scan of the brain. With her clinical exam also notice slight ptosis of both upper eyelid patient had severe high possibility for having myasthenia gravis just a diagnosed right. Patient was seen and evaluated by neurology and testing with acetylcholine receptor binding antibody was requested. Patient was started on Mestinon 50 mg 3 times a day by neurology also requests to see Dr. Rick for possible severe abnormality with radiculopathy of the cervical spine. As of concern of her breast cancer patient has been in remission at this point in doing well. 05/25: Patient has been seen by Dr. Rick and he has ordered MRI of the cervical spine. She currently has a c-collar in place. CAT scan of the cervical and thoracic spine reveals spondylotic hypertrophic degenerative changes in the cervical and thoracic spine. Mild subluxation deformities at C3-4 and C5-6 without evidence of significant cervical bony spinal stenosis. No acute bony abnormality seen. Patient is to be seen by speech therapy today. Patient is upset that she is nothing by mouth status but we are waiting for speech therapy evaluation. Discussed briefly possibility of need for PEG tube. Repeat CBC is unremarkable with lymphocytes at 0.4. Sodium 135, potassium 4.3, BUN 15 and creatinine 0.57. TSH 0.096 and free T4 2 0.48. Acetylcholine receptor binding antibody pending. Clinic Neuro continues to follow the patient as well. She has been afebrile, heart rate 100, blood pressure 130/62, pulse ox 97% on room air. 05/26: Patient has been evaluated by speech and is at risk for all consistencies and not safe for any oral intake. Discussed with the patient option of PEG tube. This was also discussed with the patient's son while. Subsequently, discussion with Dr. Rose that patient may benefit from IVIG, NG tube with Mestinon 60 mg 3 times daily and if she has good results, may not require PEG tube placement. He has contacted the patient's son and he is in agreement. MRI of the cervical spine reveals degenerative disc disease, multilevel foraminal encroachment, spinal stenosis. Orthopedic spine is still recommending hard collar. Patient has been afebrile, heart rate 113, blood pressure 159/72, pulse ox 94% on room air. GI was consult within updated regarding plan to postpone PEG tube placement and observe for improvement with IVIG and Mestinon. 05/27: Yesterday, NG tube was not able to be placed. Patient was started on immunoglobulin yesterday by Dr. Anguiano. Plan is for PEG tube placement today and start patient on Mestinon 60 mg 3 times daily. The patient is more confused today. Patient has been afebrile, heart rate 98, blood pressure 130/76, pulse ox 97% on room air. Repeat blood work reveals normal CBC. INR 1. BUN 24 and creatinine 0.57. Blood sugar running between 90 and 124. Therapies have recommended home with homecare or subacute rehab. Family is hoping for home with home care. REVIEW OF SYSTEMS CONSTITUTIONAL: Well-developed no acute respiratory distress. No fever. No chills. EYES: No icterus sclerae, no conjunctivitis significant ptosis of the upper eyelid. EARS, NOSE, MOUTH, THROAT, and FACE: No sore throat, lymphadenopathy, carotid bruits or deformity. RESPIRATORY: No SOB cough or wheezes. CARDIOVASCULAR: No CP, Palpitation, PND, Orthopnea, or angina. GASTROINTESTINAL: No Abd pain, Nausea or vomiting, no Diarrhea or constipation, significant dysphagia GENITOURINARY: Negative for Hematuria or UTI, no kidney stones. INTEGUMENT/BREAST: Negative for any muscular injury with mild osteoarthritis. HEMATOLOGIC/LYMPHATIC: Negative for bleed or purpura. MUSCULOSKELTAL: Negative for Myalgia or arthralgia. NEURLOGICAL: No LOC, Sz or syncope, blurred vision dizziness or abnormality. Dysphagia. Encephalopathy BEHAVIORAL/PSYCH: Negative. ENDOCRINE: Negative. PHYSICAL EXAMINATION Gen: This is an 80-year-old female. Patient is resting in bed. She is awake and alert. HEENT: Head is atraumatic, normocephalic. Pupils equal, round. Sclerae is ani cteric. Mild bilateral ptosis NECK: Supple. No JVD. No lymphadenopathy. No thyromegaly. No carotid bruit. LUNGS: Clear to auscultation. No wheezes or rhonchi. No intercostal retractions. HEART: Regular rate and rhythm. No murmur. ABDOMEN: Soft. Bowel sounds are present. No masses. No tenderness. EXTREMITIES: No pedal edema. No calf tenderness. NEUROLOGICAL: Patient is awake, alert and oriented x3. Slight slurring of speech. ASSESSMENT AND PLAN 1 myasthenia gravis. Consult with neurology appreciated. Patient has been started on Mestinon but unable to receive it because of swallowing issues. PEG tube placement today, start tube feedings and, Mestinon 60 mg 3 times daily, IVIG has also been started. 2 severe dysphagia secondary to myasthenia gravis. Neurology consult appreciated. Obtained acetylcholine receptor antibody. Consult for GI regarding PEG tube placement. 3 severe cervical radiculopathy: Patient will be seen Dr. Rick further management will be done. MRI of cervical spine as above. Continues hard cervical collar. 4 history of breast cancer colon in remission patient is doing very well so far. 5 Hypothyroidism: Continue patient on levothyroxine 88 g daily. 6 hypertension: Remain on amlodipine 5 mg a day and lisinopril 20 mg daily. 7 abnormal therapy post breast cancer still on Arimidex 1 mg daily. 8 GI prophylaxis: Patient in Pepcid 20 mg daily. 9 DVT prophylaxis: Patient will be on Lovenox subcutaneous. CODE STATUS: Full code. DISCHARGE PLAN To be determined. Possibly home with homecare. PT and OT consults added. Impression and plan of care have been directed as dictated by the signing physician. Pat Zheng nurse practitioner acting as scribe for signing physician. Objective - Vital Signs Vital signs: Vital Signs Temp 98.2 F 05/26/20 16:00 Pulse 84 05/27/20 04:00 Resp 18 05/27/20 04:00 BP 139/77 05/27/20 04:00 Pulse Ox 97 05/27/20 04:00 Intake & Output 05/26/20 05/27/20 05/27/20 18:59 06:59 18:59 Intake Total 245 20 Output Total 200 Balance 45 20 Weight 61 kg 54.5 kg Intake: IV 30 20 Invasive Line 1 10 Invasive Line 2 20 Invasive Line 3 20 Intake, IV Titration 215 Amount Immune Globulin ( 200 Gammagard) 20 gm In Empty Bag 1 bag @ Per Protocol IV .Q0M ONE Rx#: [id number] Immune Globulin ( 15 Gammagard) 5 gm In Empty Bag 1 bag @ Titrate IV . Q0M ONE Rx#:[id number] Output: Urine 200 Other: Voiding Method Diaper Diaper Incontinent Incontinent - Labs CBC & Chem 7: 05/27/20 07:17 05/27/20 07:17 Labs: Abnormal Lab Results - Last 24 Hours (Table) 05/26/20 05/26/20 05/27/20 Range/Units 11:46 20:29 07:17 Chloride 108 H (98-107) mmol/L BUN 24 H (7-17) mg/dL Glucose 122 H (74-99) mg/dL POC Glucose (mg/dL) 126 H 124 H (75-99) mg/dL
[2020-05-27] MEDS ORDERED: AMPICILLIN-SULBACTAM 1.5 GM in SODIUM CHLORIDE 0.9% 50 ML IVPB ONE (12:00)
[2020-05-27] MEDS ORDERED: IMMUNE GLOBULIN (GAMMAGARD) 20 GM in EMPTY BAG 1 BAG IV ONE (12:00)
[2020-05-27] MEDS ORDERED: IMMUNE GLOBULIN (GAMMAGARD) 5 GM in EMPTY BAG 1 BAG IV ONE (12:00)
[2020-05-27 12:16] LABS: Glucose,Whole Blood 116 mg/dL (75-99)
--- NOTE | 2020-05-27 12:58 | P.PN ---
Subjective Progress Note Date: 05/27/20 Principal diagnosis: Oropharyngeal dysphagia, PEG tube placement The patient was seen and examined this morning lying in bed. Patient's son was at the bedside. Patient remains confused, and disoriented. She is hard of hearing, her speech is slurred. Patient is oriented to self only. She has a soft cervical collar on. She is moving bilateral upper and lower extremities. She remains nothing by mouth. She was scheduled for PEG tube placement today. Conversation with son was held at the bedside, and at that time he was unsure if he wanted his mother to continue with PEG tube placement. According to his nurse the son had a conversation with Dr. Anguiano from neurology, and would like to hold off on PEG tube placement at this time. Objective - Vital Signs Vital signs: Vital Signs Temp 97.6 F 05/27/20 12:00 Pulse 113 H 05/27/20 12:00 Resp 18 05/27/20 12:00 BP 149/74 05/27/20 12:00 Pulse Ox 97 05/27/20 12:00 Intake & Output 05/26/20 05/27/20 05/27/20 18:59 06:59 18:59 Intake Total 245 20 210 Output Total 200 Balance 45 20 210 Weight 61 kg 54.5 kg Intake: IV 30 20 10 Invasive Line 1 10 Invasive Line 2 20 Invasive Line 3 20 Invasive Line 4 10 Intake, IV Titration 215 200 Amount Immune Globulin ( 200 Gammagard) 20 gm In Empty Bag 1 bag @ Per Protocol IV .Q0M ONE Rx#: [id number] Immune Globulin ( 200 Gammagard) 20 gm In Empty Bag 1 bag @ Per Protocol IV .Q0M ONE Rx#: [id number] Immune Globulin ( 15 Gammagard) 5 gm In Empty Bag 1 bag @ Titrate IV . Q0M ONE Rx#:[id number] Output: Urine 200 Other: Voiding Method Diaper Diaper Diaper Incontinent Incontinent Incontinent - Exam General appearance: The patient is alert, oriented, in no acute distress. Restless and fidgety. HET: Head is normocephalic and atraumatic. Conjunctiva pink. Sclera anicteric. Neck: With soft cervical collar in place. Abdomen: Soft, nontender, nondistended with bowel sounds. No guarding or rigidity. Extremities: Normal skin color and turgor. No pedal edema Neurological: No focal deficits. Alert and orientated x1. - Labs CBC & Chem 7: 05/27/20 07:17 05/27/20 07:17 Labs: Abnormal Lab Results - Last 24 Hours (Table) 05/26/20 05/27/20 05/27/20 Range/Units 20:29 07:17 12:14 Chloride 108 H (98-107) mmol/L BUN 24 H (7-17) mg/dL Glucose 122 H (74-99) mg/dL POC Glucose (mg/dL) 124 H 116 H (75-99) mg/dL Assessment and Plan (1) Oropharyngeal dysphagia Narrative/Plan: 80-year-old female with a medical comorbidities presenting to the hospital for multiple complaints including weakness, difficulty holding her head up and oropharyngeal dysphagia. The patient is currently being treated for a myasthenia gravis crisis and receiving IVIG therapy. The patient's treatment plan includes oral medications however she has been unable to swallow the medications and his gastric tube placement has been unsuccessful. She underwent a swallow study in the outpatient setting on 06/03/2020 showing impaired oropharyngeal swallow, posterior pharyngeal wall peristalsis absence with epiglottic inversion with concern for silent aspiration of thin liquids. Current Visit: Yes Status: Acute Code(s): R13.12 - DYSPHAGIA, OROPHARYNGEAL PHASE SNOMED Code(s): 06339276 Plan: Supportive care Nothing by mouth Continue to monitor CBC, BMP, LFTs Appreciate recommendations from the neurology service Video swallow evaluation reviewed Case discussed with the patient's Dave and son Ham over the phone. They were both ingredients that they would like to hold off on the PEG tube placement at this time and allow another couple days of treatment with IVIg to see symptoms improved. Continue with evaluation and treatment from Speech Therapy Medicine will follow up with nutriitonal status, possible PICC line placement with TPN Thank you for allowing us to participate in the care of the patient Dr. Rangel I agree with the dictator's note, documented as a scribe by Tasha Peacock.
--- NOTE | 2020-05-27 13:23 | CDI ---
Documentation Clarification Form Date: 05/27/2020 12:59:10 PM From: Jeanne Garnett RN, CCDS Admit Date: 05/25/2020 09:02:00 AM Patient Name: Kareen Aguilera Visit Number: [id number] Discharge Date: ATTENTION: The Clinical Documentation Specialists (CDI) and [facility] Coding Staff appreciate your assistance in clarifying documentation. Please respond to the clarification below the line at the bottom and electronically sign. The CDI & [facility] Coding staff will review the response and follow-up if needed. Please note: Queries are made part of the Legal Health Record. If you have any questions, please contact the author of this message via ITS. Dr. Sawyer Shrestha Malnutrition has been documented in dietary consult and evaluation. Please render your opinion on the nutritional assessment and finds. 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 Mild Protein-Calorie Malnutrition xxModerate Protein-Calorie Malnutrition Severe Protein-Calorie Malnutrition Other condition, please specify Unable to determine (Last Revision: December 2018) MTDD
[2020-05-27 16:14] LABS: Magnesium 2.4 mg/dL (1.6-2.3); Phosphorus 2.3 mg/dL (2.5-4.5)
[2020-05-27 16:27] LABS: Glucose,Whole Blood 101 mg/dL (75-99)
[2020-05-27 20:42] LABS: Glucose,Whole Blood 103 mg/dL (75-99)
[2020-05-28 01:39] LABS: Glucose,Whole Blood 161 mg/dL (75-99)
[2020-05-28] MEDS: SODIUM CHLORIDE 0.9% 1,000 ML IV SCH ×2 (04:26→16:55)
[2020-05-28] MEDS: METOPROLOL TARTRATE 5 MG/5 ML VIAL IVP SCH ×4 (05:24→22:49)
[2020-05-28 06:20] LABS: Glucose,Whole Blood 113 mg/dL (75-99)
[2020-05-28] MEDS: DILTIAZEM 125 MG in SODIUM CHLORIDE 0.9% 100 ML IV SCH (06:45)
[2020-05-28] MEDS: LEVOTHYROXINE 88 MCG TAB PO SCH (06:46)
[2020-05-28 11:41] LABS: Glucose,Whole Blood 142 mg/dL (75-99)
[2020-05-28] MEDS ORDERED: AMPICILLIN-SULBACTAM 1.5 GM in SODIUM CHLORIDE 0.9% 50 ML IVPB ONE (12:00)
[2020-05-28] MEDS ORDERED: IMMUNE GLOBULIN (GAMMAGARD) 5 GM in EMPTY BAG 1 BAG IV ONE (12:00)
[2020-05-28] MEDS ORDERED: IMMUNE GLOBULIN (GAMMAGARD) 20 GM in EMPTY BAG 1 BAG IV ONE (12:00)
--- NOTE | 2020-05-28 13:11 | P.PN ---
Subjective Progress Note Date: 05/28/20 Principal diagnosis: Dropped Head syndrome Myasthenia gravis Patient was seen and examined this morning. She is noticeably worse today. She is unable to answer questions or follow commands. Nursing is at bedside assessing her with EKG as well as pulse oximeter. She loosely follows commands a few right them out on her white board but she cannot hear. She is wearing a hard collar at this time. She still is unable to swallow. There are talks of PEG tube placements as well. Objective - Vital Signs Vital signs: Vital Signs Temp 97.9 F 05/28/20 08:00 Pulse 93 05/28/20 08:00 Resp 18 05/28/20 08:00 BP 153/82 05/28/20 08:00 Pulse Ox 95 05/28/20 08:00 Intake & Output 05/27/20 05/28/20 05/28/20 18:59 06:59 18:59 Intake Total 270 Output Total 600 Balance -330 Intake: IV 20 Invasive Line 4 10 Invasive Line 5 10 Intake, IV Titration 250 Amount Immune Globulin ( 200 Gammagard) 20 gm In Empty Bag 1 bag @ Per Protocol IV .Q0M ONE Rx#: [id number] Immune Globulin ( 50 Gammagard) 5 gm In Empty Bag 1 bag @ Titrate IV . Q0M ONE Rx#:[id number] Output: Urine 600 Straight 600 Other: Voiding Method Diaper Diaper Incontinent Incontinent - Exam GEN: AOX1, noticeably worse today confused and unable to follow commands VSS Inspection: Patient is in a c-collar seated in bed Palpation: No tenderness to palpation of the cervical or thoracic spine at this time Motor: She did not follow commands today she is able to move her upper extremities and lower extremities with no focal deficits Reflexes: 2/4 DTR all upper and LE Sensation intact to light touch in C5-T1 as well as L2-S1 distribution Espinoza's: Negative bilaterally Clonus: None Babinski: Negative bilaterally Cranial nerves II through XII are grossly intact - Labs CBC & Chem 7: 05/27/20 07:17 05/27/20 07:17 Labs: Abnormal Lab Results - Last 24 Hours (Table) 05/27/20 05/27/20 05/27/20 Range/Units 07:17 12:14 16:25 POC Glucose (mg/dL) 116 H 101 H (75-99) mg/dL Phosphorus 2.3 L (2.5-4.5) mg/dL Magnesium 2.4 H (1.6-2.3) mg/dL 05/27/20 05/28/20 05/28/20 Range/Units 20:38 01:39 06:17 POC Glucose (mg/dL) 103 H 161 H 113 H (75-99) mg/dL Phosphorus (2.5-4.5) mg/dL Magnesium (1.6-2.3) mg/dL Assessment and Plan Assessment: 80 yo female with progressive [id number] deformity which is causing swallowing and respiratory compromise 1. Cervical spondylosis, severe 2. Thoracic kyphosis 3. No acute C-spine fracture 4. Likely myasthenia gravis Plan: -Hard cervical collar -MRI reviewed, there are no acute C-spine fractures which can be seen. There is anterolisthesis of C3 on C4 and there is severe stenosis of C3 4 which is noted a pincer-type lesion. However there is no myelomalacia at this area. The remainder of the cervical spine shows spondylosis without fracture dislocation. C1 to an occiput C1 joints are intact and stable -Agree with continued myasthenia gravis treatment for the time being to see if she recovers. -No orthopedic spinal surgery planned at this time
[2020-05-28] MEDS ORDERED: ENALAPRILAT 1.25 MG/ML 1 ML VIAL IVP PRN (13:52)
--- NOTE | 2020-05-28 13:54 | P.PN ---
Subjective Progress Note Date: 05/28/20 HISTORY OF PRESENT ILLNESS 80-year-old female one of Dr. Pryor patient with past medical history of breast cancer, hypertension, severe osteoarthritis and hypothyroidism who has not been feeling well since March when developed to have trouble holding her head straight up ended up coming to [facility] unit at the time x-ray showed severe arthritis with possible left mild disc disease. Patient ended up going back to see Dr. Pryor more testing to be order. Lately patient is up to have severe dysphagia where patient was scheduled to have swallow study came back severely abnormal and higher possibility for central dysphagia patient ended up coming to the emergency department where was seen and evaluated ended up going for CT of the brain and the cervical spine showed moderate multilevel spondylotic change with multiple degenerative a grade 1 anterolisthesis with small vessel disease on CAT scan of the brain. With her clinical exam also notice slight ptosis of both upper eyelid patient had severe high possibility for having myasthenia gravis just a diagnosed right. Patient was seen and evaluated by neurology and testing with acetylcholine receptor binding antibody was requested. Patient was started on Mestinon 50 mg 3 times a day by neurology also requests to see Dr. Rick for possible severe abnormality with radiculopathy of the cervical spine. As of concern of her breast cancer patient has been in remission at this point in doing well. 05/25: Patient has been seen by Dr. Rick and he has ordered MRI of the cervical spine. She currently has a c-collar in place. CAT scan of the cervical and thoracic spine reveals spondylotic hypertrophic degenerative changes in the cervical and thoracic spine. Mild subluxation deformities at C3-4 and C5-6 without evidence of significant cervical bony spinal stenosis. No acute bony abnormality seen. Patient is to be seen by speech therapy today. Patient is upset that she is nothing by mouth status but we are waiting for speech therapy evaluation. Discussed briefly possibility of need for PEG tube. Repeat CBC is unremarkable with lymphocytes at 0.4. Sodium 135, potassium 4.3, BUN 15 and creatinine 0.57. TSH 0.096 and free T4 2 0.48. Acetylcholine receptor binding antibody pending. Clinic Neuro continues to follow the patient as well. She has been afebrile, heart rate 100, blood pressure 130/62, pulse ox 97% on room air. 05/26: Patient has been evaluated by speech and is at risk for all consistencies and not safe for any oral intake. Discussed with the patient option of PEG tube. This was also discussed with the patient's son while. Subsequently, discussion with Dr. Rose that patient may benefit from IVIG, NG tube with Mestinon 60 mg 3 times daily and if she has good results, may not require PEG tube placement. He has contacted the patient's son and he is in agreement. MRI of the cervical spine reveals degenerative disc disease, multilevel foraminal encroachment, spinal stenosis. Orthopedic spine is still recommending hard collar. Patient has been afebrile, heart rate 113, blood pressure 159/72, pulse ox 94% on room air. GI was consult within updated regarding plan to postpone PEG tube placement and observe for improvement with IVIG and Mestinon. 05/27: Yesterday, NG tube was not able to be placed. Patient was started on immunoglobulin yesterday by Dr. Anguiano. Plan is for PEG tube placement today and start patient on Mestinon 60 mg 3 times daily. The patient is more confused today. Patient has been afebrile, heart rate 98, blood pressure 130/76, pulse ox 97% on room air. Repeat blood work reveals normal CBC. INR 1. BUN 24 and creatinine 0.57. Blood sugar running between 90 and 124. Therapies have recommended home with homecare or subacute rehab. Family is hoping for home with home care. 05/28: Patient went into SVT yesterday evening, this morning's EKG is a sinus rhythm. Patient required nonrebreather last night because pulse ox dropped down to 79%. It appears patient has been going in and out of atrial fibrillation. S he was started on Cardizem drip this morning after Lopressor did not improve her heart rate. Patient is more lethargic and quiet this morning. Continued weakness noted. After long discussion with patient's son via phone, family did agree to PEG tube placement which GI will perform today. Patient was seen by cardiology and atrial fibrillation was ruled out. REVIEW OF SYSTEMS CONSTITUTIONAL: Well-developed no acute respiratory distress. No fever. No chills. EYES: No icterus sclerae, no conjunctivitis significant ptosis of the upper eyelid. EARS, NOSE, MOUTH, THROAT, and FACE: No sore throat, lymphadenopathy, carotid bruits or deformity. RESPIRATORY: No SOB cough or wheezes. CARDIOVASCULAR: No CP, Palpitation, PND, Orthopnea, or angina. GASTROINTESTINAL: No Abd pain, Nausea or vomiting, no Diarrhea or constipation, significant dysphagia GENITOURINARY: Negative for Hematuria or UTI, no kidney stones. INTEGUMENT/BREAST: Negative for any muscular injury with mild osteoarthritis. HEMATOLOGIC/LYMPHATIC: Negative for bleed or purpura. MUSCULOSKELTAL: Negative for Myalgia or arthralgia. NEURLOGICAL: No LOC, Sz or syncope, blurred vision dizziness or abnormality. Dysphagia. Encephalopathy BEHAVIORAL/PSYCH: Negative. ENDOCRINE: Negative. PHYSICAL EXAMINATION Gen: This is an 80-year-old female. Patient is resting in bed. She is awake and alert. HEENT: Head is atraumatic, normocephalic. Pupils equal, round. Sclerae is anicteric. Mild bilateral ptosis NECK: Supple. No JVD. No lymphadenopathy. No thyromegaly. No carotid bruit. LUNGS: Clear to auscultation. No wheezes or rhonchi. No intercostal retractions. HEART: Regular rate and rhythm. No murmur. ABDOMEN: Soft. Bowel sounds are present. No masses. No tenderness. EXTREMITIES: No pedal edema. No calf tenderness. NEUROLOGICAL: Patient is awake, alert and oriented x3. Slight slurring of speech. ASSESSMENT AND PLAN 1 myasthenia gravis. Consult with neurology appreciated. Patient has been started on Mestinon but unable to receive it because of swallowing issues. PEG tube placement today, start tube feedings and, Mestinon 60 mg 3 times daily, IVIG has also been started. 2 severe dysphagia secondary to myasthenia gravis. Neurology consult appreciated. Obtained acetylcholine receptor antibody. Consult for GI regarding PEG tube placement. 3 severe cervical radiculopathy: Patient will be seen Dr. Rick further management will be done. MRI of cervical spine as above. Continues hard cervical collar. 4 history of breast cancer colon in remission patient is doing very well so far. 5 Hypothyroidism: Continue patient on levothyroxine --nothing by mouth. 6 hypertension: Remain on amlodipine 5 mg a day and lisinopril 20 mg daily--nothing by mouth. Vasotec prn 7 abnormal therapy post breast cancer still on Arimidex 1 mg daily--nothing by mouth. 8 GI prophylaxis: Protonix IV 9 DVT prophylaxis: Patient will be on Lovenox subcutaneous. 10 episode of hypoxia secondary to SVT. Rate is currently controlled. Cardiology on consult and rule out atrial fibrillation CODE STATUS: Full code. DISCHARGE PLAN To be determined. Possibly home with homecare. PT and OT consults added. Impression and plan of care have been directed as dictated by the signing physician. Pat Zheng nurse practitioner acting as scribe for signing physician. Objective - Vital Signs Vital signs: Vital Signs Temp 97.9 F 05/28/20 08:00 Pulse 93 05/28/20 08:00 Resp 18 05/28/20 08:00 BP 153/82 05/28/20 08:00 Pulse Ox 95 05/28/20 08:00 Intake & Output 05/27/20 05/28/20 05/28/20 18:59 06:59 18:59 Intake Total 270 Output Total 600 Balance -330 Intake: IV 20 Invasive Line 4 10 Invasive Line 5 10 Intake, IV Titration 250 Amount Immune Globulin ( 200 Gammagard) 20 gm In Empty Bag 1 bag @ Per Protocol IV .Q0M ONE Rx#: [id number] Immune Globulin ( 50 Gammagard) 5 gm In Empty Bag 1 bag @ Titrate IV . Q0M ONE Rx#:[id number] Output: Urine 600 Straight 600 Other: Voiding Method Diaper Diaper Incontinent Incontinent - Labs CBC & Chem 7: 05/27/20 07:17 05/27/20 07:17 Labs: Abnormal Lab Results - Last 24 Hours (Table) 05/27/20 05/27/20 05/27/20 Range/Units 07:17 12:14 16:25 POC Glucose (mg/dL) 116 H 101 H (75-99) mg/dL Phosphorus 2.3 L (2.5-4.5) mg/dL Magnesium 2.4 H (1.6-2.3) mg/dL 05/27/20 05/28/20 05/28/20 Range/Units 20:38 01:39 06:17 POC Glucose (mg/dL) 103 H 161 H 113 H (75-99) mg/dL Phosphorus (2.5-4.5) mg/dL Magnesium (1.6-2.3) mg/dL
[2020-05-28] MEDS ORDERED: PROPOFOL 10 MG/ML 20 ML VIAL IV ONE (14:30)
[2020-05-28] MEDS ORDERED: WATER FOR INJECTION, STERILE 10 ML VIAL IV ONE (14:30)
[2020-05-28] MEDS ORDERED: ePHEDrine SULFATE/0.9% NACL/PF 50 MG/5 ML SYRINGE IV ONE (14:30)
[2020-05-28] MEDS ORDERED: PHENYLEPHRINE 10 MG/ML VIAL ONE (14:30)
--- NOTE | 2020-05-28 14:34 | P.CRDCN ---
History of Present Illness History of present illness: HISTORY OF PRESENTING ILLNESS This is a pleasant 80-year-old female past medical history significant for hypertension, breast cancer and hypothyroidism. She denies prior history of coronary artery disease and has not followed with a transportation engineering technician for any reason. We have been asked to see in consultation for tachycardia. Evening while on telemetry the patient's heart rate went up to 170. Rhythm strips and EKGs reviewed reveal sinus tachycardia. No evidence of acute arrhythmia. At the time the patient was also short of breath and noted to be hypoxic. Nonrebreather applied and oxygen saturation did go up to normal range. Blood pressure at the time was 139/82. She is currently being treated for severe dysphagia, cervical radiculopathy and myasthenia gravis. She is currently nothing by mouth. Laboratory data reviewed, CBC unremarkable, sodium 140, potassium 4.1, magnesium 2.4, troponin negative 1, TSH 0.0 96 with a free T4 2 0.48. Currently maintained on metoprolol 5 mg IV push every 6 hours. At home she was taking lisinopril 20 mg daily and amlodipine 5 mg daily. Currently awaiting PEG tube placement and PICC line insertion. REVIEW OF SYSTEMS At the time of my exam: CONSTITUTIONAL: Denies fever or chills. CARDIOVASCULAR: Denies chest pain, shortness of breath, orthopnea, PND or palpitations. RESPIRATORY: Denies cough. GASTROINTESTINAL: Denies abdominal pain, diarrhea, constipation, nausea or vomiting. MUSCULOSKELETAL: Denies myalgias. NEUROLOGIC: Denies numbness, tingling or weakness. ENDOCRINE: Denies fatigue, weight change, polydipsia or polyurina. GENITOURINARY: Denies burning, hematuria or urgency with micturation. HEMATOLOGIC: Denies history of anemia or bleeding. PHYSICAL EXAMINATION Blood pressure [] heart rate [] afebrile and maintaining oxygen saturation on []. CONSTITUTIONAL: No apparent distress. HEENT: Head is normocephalic. Pupils are equal, round. Sclerae anicteric. Mucous membranes of the mouth are moist. No JVD. No carotid bruit. CHEST EXAMINATION: Lungs are clear to auscultation. No chest wall tenderness is noted on palpation or with deep breathing. HEART EXAMINATION: Regular rate and rhythm. S1, S2 heard. No murmurs, gallops or rub. ABDOMEN: Soft, nontender. Positive bowel sounds. EXTREMITIES: 2+ peripheral pulses, no lower extremity edema and no calf tenderness. NEUROLOGIC EXAMINATION: Patient is awake, alert and oriented x3. ASSESSMENT Sinus tachycardia Hyperthyroidism Hypoxia Myasthenia gravis Hypertension Dysphagia PLAN Obtain 2D echocardiogram and doppler study to assess cardiac structure and function. Tachycardia secondary to hyper-thyroid state. Decrease synthroid to 50 mcg daily. Continue IV lopressor and cardizem for heart rate and blood pressure control since she is NPO. No further cardiac work-up at this time. We will follow along as needed. Thank you kindly for this consultation. Nurse Practitioner note has been reviewed, I agree with a documented findings and plan of care. Patient was seen and examined. Past Medical History Past Medical History: Cancer, Hypertension, Osteoarthritis (OA) Additional Past Medical History / Comment(s): HYPOTHYROID,BREAST CANCER SEPTEMBER 2013, RASH ON LEFT BREAST -SEEN AT OUTPT CLINIC AND STARTED ANTIBIOTIC 10/22/13, NOTIFIED DR MCKENZIE OFFICE. STATES INCISIONS ARE HEALING WELL FROM BREAST SURGERY. 10/06/13 History of Any Multi-Drug Resistant Organisms: None Reported Past Surgical History: Breast Surgery, Hysterectomy Additional Past Surgical History / Comment(s): SINUS SURGERY, LEFT BREAST LUMPECTOMY 10/06/2013 Past Anesthesia/Blood Transfusion Reactions: No Reported Reaction Additional Past Anesthesia/Blood Transfusion Reaction / Comment(s): STATES PT WAS TOLD SHE NEEDED OXYGEN DURING SURGERY AND TO LET ANESTHESIA KNOW. Past Psychological History: No Psychological Hx Reported Smoking Status: Former smoker Past Alcohol Use History: None Reported Past Drug Use History: None Reported - Past Family History Sister(s) Family Medical History: Cancer Medications and Allergies Home Medications Medication Instructions Recorded Confirmed Type Levothyroxine Sodium [Synthroid] 88 mcg PO DAILY 10/23/13 05/24/20 History Anastrozole [Arimidex] 1 mg PO DAILY 04/17/20 05/24/20 History amLODIPine [Norvasc] 5 mg PO DAILY 04/17/20 05/24/20 History lisinopriL [Zestril] 20 mg PO DAILY 04/17/20 05/24/20 History Allergies Allergy/AdvReac Type Severity Reaction Status Date / Time No Known Allergies Allergy Verified 05/24/20 13:31 Physical Exam Vitals: Vital Signs Temp Pulse Resp BP Pulse Ox 05/28/20 14:00 129 H 05/28/20 12:00 98 F 129 H 18 134/69 96 05/28/20 08:00 97.9 F 93 18 153/82 95 05/28/20 06:54 139 H 19 152/96 05/28/20 06:39 153 H 149/89 05/28/20 04:00 97.7 F 72 19 140/67 96 05/28/20 03:13 96 05/27/20 23:53 97.6 F 99 18 163/94 94 L 05/27/20 20:00 97.6 F 90 18 130/75 93 L 05/27/20 16:29 97.7 F 85 16 141/80 98 Intake and Output 05/27/20 05/28/20 05/28/20 22:59 06:59 14:59 Output Total 600 Balance -600 Output: Urine 600 Straight 600 Other: Voiding Method Diaper Diaper Diaper Incontinent Incontinent Incontinent Results 05/27/20 07:17 05/27/20 07:17 Current Medications Generic Name Dose Route Start Last Admin Trade Name Freq PRN Reason Stop Dose Admin Amlodipine Besylate 5 mg 05/25/20 09:00 05/27/20 08:14 Amlodipine 5 Mg Tab PO Not Given DAILY PARRIS Anastrozole 1 mg 05/25/20 09:00 05/27/20 08:15 Anastrozole 1 Mg Tab PO Not Given DAILY P[facility]IS Enalaprilat 1.25 mg 05/28/20 13:52 Enalaprilat 1.25 Mg/Ml 1 Ml Vial IVP Q6HR PRN SBP >160 Enoxaparin Sodium 40 mg 05/25/20 09:00 05/27/20 17:18 Enoxaparin 40 Mg/0.4 Ml Syringe SQ Not Given DAILY [facility] Sodium Chloride 1,000 mls @ 75 mls/hr 05/24/20 15:00 05/28/20 04:26 Saline 0.9% IV Not Given .[id number] PARRIS Immune Globulin 20 gm/ IV 200 mls @ 0 mls/hr 05/29/20 12:00 Solution IV 05/29/20 12:01 .Q0M ONE Protocol Per Protocol Immune Globulin 20 gm/ IV 200 mls @ 0 mls/hr 05/30/20 12:00 Solution IV 05/30/20 12:01 .Q0M ONE Protocol Per Protocol Immune Globulin 5 gm/ IV 50 mls @ 0 mls/hr 05/29/20 12:00 Solution IV 05/29/20 12:01 .Q0M ONE Protocol Titrate Immune Globulin 5 gm/ IV 50 mls @ 0 mls/hr 05/30/20 12:00 Solution IV 05/30/20 12:01 .Q0M ONE Protocol Titrate Diltiazem HCl 125 mg/ Sodium 125 mls @ 5 mls/hr 05/28/20 07:00 05/28/20 06:45 Chloride IV 5 mg/hr .Q24H PARRIS 5 mls/hr Administration 5 MG/HR Levothyroxine Sodium 50 mcg 05/29/20 06:30 Levothyroxine 50 Mcg Tab PO DAILY@0630 [facility] Lisinopril 20 mg 05/25/20 09:00 05/27/20 08:15 Lisinopril 20 Mg Tab PO Not Given DAILY PARRIS Metoprolol Tartrate 5 mg 05/26/20 18:00 05/28/20 05:24 Metoprolol Tartrate 5 Mg/5 Ml Vial IVP 5 mg Q6HR PARRIS Administration Naloxone HCl 0.2 mg 05/24/20 14:58 Naloxone 0.4 Mg/Ml 1 Ml Vial IV Q2M PRN Opioid Reversal Pantoprazole Sodium 40 mg 05/29/20 09:00 Pantoprazole 40 Mg/10 Ml Vial IVP DAILY PARRIS Pyridostigmine [place] 60 mg 05/26/20 10:23 05/27/20 20:18 Pyridostigmine 60 Mg Tab NG-TUBE Not Given TID PARRIS Intake and Output 05/27/20 05/28/20 05/28/20 22:59 06:59 14:59 Output Total 600 Balance -600 Output: Urine 600 Straight 600 Other: Voiding Method Diaper Diaper Diaper Incontinent Incontinent Incontinent 05/27/20 07:17 05/27/20 07:17
[2020-05-28 15:07] VITALS: BMI 19.3
[2020-05-28] MEDS ORDERED: LACTATED RINGERS 1,000 ML IV ONE (15:10)
--- NOTE | 2020-05-28 15:24 | P.PCN ---
Date of Procedure: 05/28/20 Description of Procedure: Brief history: 80-year-old female with a medical history significant for osteoarthritis, hypothyroidism, breast cancer and hypertension who presented to the hospital due to weakness, difficulty holding her head up and oropharyngeal dysphagia/difficulty swallowing. The patient has been seen by the neurology service and concern at this time is for a myasthenia gravis crisis. The patient has received treatment with IVIG however if symptoms persist. The patient was a lso to be started on oral therapy, however the patient has been unable to swallow medications and attempts at nasogastric tube placement have been unsuccessful. Procedure performed: EGD with PEG tube placement Preoperative diagnosis: Oropharyngeal dysphagia. IV sedation by anesthesia Estimated blood loss: Minimal. Procedure: After informed consent was obtained with the patient as well as the family the patient was brought into the endoscopy unit. IV conscious sedation was administered by anesthesia under continuous monitoring. The Olympus GF 190 video endoscope was inserted into the mouth and esophagus intubated without any difficulty and was gradually advanced to the stomach and duodenum. The bulb and second part of the duodenum was visualized which was significant for a 1 cm no nbleeding duodenal bulb ulcer without high-risk stigmata for bleeding. The scope at this time was withdrawn to the stomach adequately insufflated with air. Adequate transillumination was achieved onto the anterior abdominal wall. At the site of adequate transillumination and maximal finger indentation, on the anterior abdominal wall, this area was sterilely prepped and draped. One percent Lidocaine was infiltrated into the skin and a small incision was made. Trocar and cannula was passed through the incision into the stomach cavity. The trocar was removed. The insertion wire was passed through the cannula into the stomach. Insertion wire was snared and then the insertion wire, snare and endoscope were withdrawn from the mouth. The insertion wire was then attached to a 20-[employer] PEG tube. The insertion wire was then pulled with the PEG tube through the incision site. PEG tube was pulled until the internal bolster was sitting snugly against the gastric mucosa which was confirmed with repeat EGD. On repeat EGD the esophagus was intubated without any difficulty and was advanced into the stomach. The internal bumper appeared to be in secure position. The visualized portions of the antrum body cardia and fundus of the stomach appeared normal. The esophagus was carefully examined as the scope was gradually being withdrawn which appeared normal. At this time external bumper was placed on the PEG tube closer to the anterior abdominal wall at 3.5 cm souleymane. The patient tolerated the procedure well. Impression: EGD with 20[employer] PEG tube placement. Nonbleeding duodenal bulb ulcer Recommendations: Findings of this examination were discussed with the patient's family. The patient will be started on tube feeds tomorrow, and okay for pills with flushes tonight through the PEG. Post-PEG tube orders were written. Patient should be on twice daily PPI therapy for treatment of nonbleeding duodenal ulcer.
[2020-05-28 16:50] LABS: Glucose,Whole Blood 118 mg/dL (75-99)
[2020-05-28] MEDS: PYRIDOSTIGMINE 60 MG TAB NG-TUBE SCH ×3 (16:50→20:16)
[2020-05-28] MEDS: ANASTROZOLE 1 MG TAB PO SCH (16:50)
[2020-05-28] MEDS: amLODIPine 5 MG TAB PO SCH (17:02)
[2020-05-28] MEDS: lisinopriL 20 MG TAB PO SCH (17:02)
[2020-05-28] MEDS: FAMOTIDINE 20 MG TAB PO SCH (17:02)
--- NOTE | 2020-05-28 17:15 | P.PN ---
Subjective Progress Note Date: 05/28/20 She was seen at bedside and the per the patient nurse her condition has improved. Patient says I feel same. Today the patient had a PEG tube placed. Objective - Vital Signs Vital signs: Vital Signs Temp 98 F 05/28/20 12:00 Pulse 129 H 05/28/20 14:00 Resp 18 05/28/20 12:00 BP 134/69 05/28/20 12:00 Pulse Ox 96 05/28/20 12:00 Intake & Output 05/27/20 05/28/20 05/28/20 18:59 06:59 18:59 Intake Total 270 200 Output Total 600 Balance -330 200 Weight 54.5 kg Intake: IV 20 200 Invasive Line 4 10 Invasive Line 5 10 Intake, IV Titration 250 Amount Immune Globulin ( 200 Gamm[place]ard) 20 gm In Empty Bag 1 bag @ Per Protocol IV .Q0M [facility] Rx#: [id number] Immune Globulin ( 50 Gammagard) 5 gm In Empty Bag 1 bag @ Titrate IV . Q0M [facility] Rx#:[id number] Output: Urine 600 Straight 600 Other: Voiding Method Diaper Diaper Diaper Incontinent Incontinent Incontinent # Voids 2 - Exam General: Is lying in bed and is in no acute distress. HENT: Neck flexion is 4- while extension is 5. Neurological exam. Somewhat limited because of cooperation. Higher mental functions: Patient is alert and awake, oriented to self and year. Following simple commands. No aphasia or neglect. Cranial Nerves: Pupils are round, equal, (3-4mm) and reactive to light bilaterally. Visual filed are full to confrontation. EOM intact and no nystagmus. Could not assess facial sensation because of cooperation. Bifacial weakness, weakness of eye closure, bilateral ptosis. No definitive diplopia (at time had diplopia horizontal out of left eye but not consistent. Patient has slurred speech. Patient has significant dysphagia. Has moderate to signficiant hearing loss out of both ears. Has phonic speech. Motor: Gait is deferred. Patient's muscle strength appears normal in the biceps, triceps, barrel and receiver aligner. Deltoid is 4+ bilaterally. While lower extremities hard to assess because of cooperation. Was able to lift bilateral extremities above gravity without focality. Ankles are normal. Sensation: Could not assess sensation because of cooperation. Reflexes: 2+ at brachioradialis while ankles are 1-2+ bilaterally. Other reflexes were hard to assess because of patient resistance on examination. Plantars are mute bilaterally. - Labs CBC & Chem 7: 05/27/20 07:17 05/27/20 07:17 Labs: Abnormal Lab Results - Last 24 Hours (Table) 05/27/20 05/28/20 05/28/20 Range/Units 20:38 01:39 06:17 POC Glucose (mg/dL) 103 H 161 H 113 H (75-99) mg/dL 05/28/20 05/28/20 Range/Units 11:37 16:49 POC Glucose (mg/dL) 142 H 118 H (75-99) mg/dL Assessment and Plan Assessment: 1-year-old woman that according to her son has been having head drop since the end of March 2020. He stated that the during the end of March she was complaining of a horizontal diplopia out of both eyes. And the early to mid April 2020 and she doesn't look the dysphagia initially to solids than liquids. She's been having weakness of her lower extremities and that's been getting worse for the last couple months according to the son. She does have history of breast cancer in 2013 and that he stated that she was in remission he thinks that she had the radiation therapy. * Probable Myasthenia gravis, with acute exacerbation/crisis. * Dyphagia due to above s/p PEG post op day#0 * Hypophonia due to above Plan: * Patient continues to have severe dysphagia, not able to take any medications. NG tube placement was recommended so patient can at least take Mestinon. However patient not able to swallow and follow instructions for NG tube. * Patient probably has significant exacerbation of myasthenia gravis, perhaps crisis. She has failed corticosteroids. On IVIG today day #3 out of 5. Patient's son was informed of possible risk and benefits. Continue Lovenox 40 mg subcu for DVT prophylaxis. * Await Acetylcholine receptor antibodies. * Recommend single-fiber EMG study as an outpatient took confirm the diagnosis of myasthenia gravis. * If IVIG doesn't help possibly consider plasma exchange. * Thyroid functions tests shows low TSH 0.096, with elevated free T4 2.48. Patient would need adjustment in thyroid hormone replacement. * CT of the chest to rule out thymoma, if myasthenia gravis is confirmed with antibodies. * Speech and swallow to closely follow as well. * MRI of the cervical spine showed degenerative disc disease, multilevel foraminal encroachment, spinal stenosis. Anterolisthesis grade 1 at C3-4, C4-5, retrolisthesis grade 1 C5-6. No critical spinal canal stenosis. * Orthopedic surgery team is on board and they feel no myelomalacia and No Orthopedic surgery at this time. * DVT prophylaxis. Patient on Lovenox 40 mg daily. * The plan was discussed with patient's nurse. Dr. Farley is on service for neurology for this weekend. Time with Patient: Less than 30
[2020-05-28] MEDS: PANTOPRAZOLE 40 MG/10 ML VIAL IVP SCH (20:20)
[2020-05-28 20:31] LABS: Glucose,Whole Blood 127 mg/dL (75-99)
[2020-05-29] MEDS ORDERED: LORazepam 2 MG/ML INJ IV PRN (00:51)
[2020-05-29] MEDS: SODIUM CHLORIDE 0.9% 1,000 ML IV SCH ×2 (04:01→11:42)
[2020-05-29] MEDS: DILTIAZEM 125 MG in SODIUM CHLORIDE 0.9% 100 ML IV SCH (04:07)
[2020-05-29] MEDS: METOPROLOL TARTRATE 5 MG/5 ML VIAL IVP SCH ×4 (05:19→22:38)
[2020-05-29] MEDS: LEVOTHYROXINE 50 MCG TAB PO SCH (06:24)
[2020-05-29 06:33] LABS: Glucose,Whole Blood 137 mg/dL (75-99)
[2020-05-29] MEDS ORDERED: PANTOPRAZOLE 40 MG/10 ML VIAL IVP SCH (09:00)
[2020-05-29] MEDS: ENOXAPARIN 40 MG/0.4 ML SYRINGE SQ SCH (09:34)
[2020-05-29] MEDS: PANTOPRAZOLE 40 MG/10 ML VIAL IVP SCH ×2 (09:34→20:07)
[2020-05-29] MEDS: PYRIDOSTIGMINE 60 MG TAB NG-TUBE SCH ×3 (09:34→22:34)
[2020-05-29] MEDS: ANASTROZOLE 1 MG TAB PO SCH (09:34)
[2020-05-29 09:45] LABS: Chloride 109 mmol/L (98-107)
--- NOTE | 2020-05-29 09:45 | P.PN ---
Progress Note - Text Progress Note Date: 05/29/20 Patient seen this morning. She is in the middle of her echo at this time in her room. She is comfortable laying in the bed she turned her head towards me and smiled and waived. She is wearing a soft collar. Per nursing no other issues overnight at this time. No emergent orthopedic surgical intervention recommended at this time. Continue medical management will follow.
[2020-05-29 09:47] LABS: ALT 30 U/L (4-34); AST 29 U/L (14-36); African American GFR (CKD) >90 (>60 ml/min/1.73 sqM); Albumin 3.1 g/dL (3.5-5.0); Alkaline Phosphatase 56 U/L (38-126); Anion Gap 3 mmol/L; Blood Urea Nitrogen 30 mg/dL (7-17); Calcium 8.2 mg/dL (8.4-10.2); Carbon Dioxide 32 mmol/L (22-30); Glucose 153 mg/dL (74-99); Magnesium 2.3 mg/dL (1.6-2.3); Non-African American GFR(CKD) 86 (>60 ml/min/1.73 sqM); Phosphorus 3.8 mg/dL (2.5-4.5); Potassium 3.5 mmol/L (3.5-5.1); Sodium 144 mmol/L (137-145); Total Bilirubin 0.7 mg/dL (0.2-1.3); Total Protein 7.7 g/dL (6.3-8.2)
--- NOTE | 2020-05-29 11:15 | CT ---
EXAMINATION TYPE: CT brain wo con DATE OF EXAM: 05/29/2020 COMPARISON: 05/24/2020 INDICATION: mental status change DLP: 1145.2 mGycm, Automated exposure control for dose reduction was used. CONTRAST: None CT of the brain is performed utilizing 3 mm thick sections through the posterior fossa and 3 mm thick sections through the remaining calvarium. Study is not performed within 24 hours of arrival to the hospital. No abnormal hyperdensity is present to suggest an acute intracranial hemorrhage. No mass lesion is evident. No acute infarcts are evident. Minimal periventricular white matter hyperintensity is present, likely on the basis of chronic white matter ischemic changes. Ventricles and sulci are appropriate for the patient age. Paranasal sinuses and mastoid air cells within the [id number] are clear. IMPRESSIONS: 1. Mild chronic appearing white matter changes. 2. No significant interval change.
[2020-05-29] MEDS: DEXTROSE 5%-0.45% NACL 1,000 ML IV SCH ×2 (11:46→22:44)
--- NOTE | 2020-05-29 11:56 | P.PN ---
Subjective Progress Note Date: 05/29/20 80-year-old female one of Dr. Pryor patient with past medical history of breast cancer, hypertension, severe osteoarthritis and hypothyroidism who has not been feeling well since March when developed to have trouble holding her head straight up ended up coming to [facility] at the time x-ray showed severe arthritis with possible left mild disc disease. Patient ended up going back to see Dr. Pryor more testing to be order. Lately patient is up to have severe dysphagia where patient was scheduled to have swallow study came back severely abnormal and higher possibility for central dysphagia patient ended up coming to the emergency department where was seen and evaluated ended up going for CT of the brain and the cervical spine showed moderate multilevel spondylotic change with multiple degenerative a grade 1 anterolisthesis with small vessel disease on CAT scan of the brain. With her clinical exam also notice slight ptosis of both upper eyelid patient had severe high possibility for having myasthenia gravis just a diagnosed right. Patient was seen and evaluated by neurology and testing with acetylcholine receptor binding antibody was requested. Patient was started on Mestinon 50 mg 3 times a day by neurology also requests to see Dr. Rick for possible severe abnormality with radiculopathy of the cervical spine. As of concern of her breast cancer patient has been in remission at this point in doing well. 05/25: Patient has been seen by Dr. Rick and he has ordered MRI of the cervical spine. She currently has a c-collar in place. CAT scan of the cervical and thoracic spine reveals spondylotic hypertrophic degenerative changes in the cervical and thoracic spine. Mild subluxation deformities at C3-4 and C5-6 without evidence of significant cervical bony spinal stenosis. No acute bony abnormality seen. Patient is to be seen by speech therapy today. Patient is upset that she is nothing by mouth status but we are waiting for speech therapy evaluation. Discussed briefly possibility of need for PEG tube. Repeat CBC is unremarkable with lymphocytes at 0.4. Sodium 135, potassium 4.3, BUN 15 and creatinine 0.57. TSH 0.096 and free T4 2 0.48. Acetylcholine receptor binding antibody pending. Clinic Neuro continues to follow the patient as well. She has been afebrile, heart rate 100, blood pressure 130/62, pulse ox 97% on room air. 05/26: Patient has been evaluated by speech and is at risk for all consistencies and not safe for any oral intake. Discussed with the patient option of PEG tube. This was also discussed with the patient's son while. Subsequently, discussion with Dr. Rose that patient may benefit from IVIG, NG tube with Mestinon 60 mg 3 times daily and if she has good results, may not require PEG tube placement. He has contacted the patient's son and he is in agreement. MRI of the cervical spine reveals degenerative disc disease, multilevel foraminal encroachment, spinal stenosis. Orthopedic spine is still recommending hard collar. Patient has been afebrile, heart rate 113, blood pressure 159/72, pulse ox 94% on room air. GI was consult within updated regarding plan to postpone PEG tube placement and observe for improvement with IVIG and Mestinon. 05/27: Yesterday, NG tube was not able to be placed. Patient was started on immunoglobulin yesterday by Dr. Anguiano. Plan is for PEG tube placement today and start patient on Mestinon 60 mg 3 times daily. The patient is more confused today. Patient has been afebrile, heart rate 98, blood pressure 130/76, pulse ox 97% on room air. Repeat blood work reveals normal CBC. INR 1. BUN 24 and creatinine 0.57. Blood sugar running between 90 and 124. Therapies have recommended home with homecare or subacute rehab. Family is hoping for home with home care. 05/28: Patient went into SVT yesterday evening, this morning's EKG is a sinus rhythm. Patient required nonrebreather last night because pulse ox dropped down to 79%. It appears patient has been going in and out of atrial fibrillation. She was started on Cardizem drip this morning after Lopressor did not improve her heart rate. Patient is more lethargic and quiet this morning. Continued weakness noted. After long discussion with patient's son via phone, family did agree to PEG tube placement which GI will perform today. Patient was seen by cardiology and atrial fibrillation was ruled out. 05/29: Patient is likely to place and we'll start her feedings however due to inability for proper tubing the feeding was on hold. We will consult nutrition for recommendations. Patient continued to be more lethargic and quiet. She is able to follow some commands however she is not able to answer any questions. Cardizem drip will be DC'd patient remains in normal sinus rhythm with a pressure less than 120 systolically. Patient continues to be afebrile. REVIEW OF SYSTEMS CONSTITUTIONAL: Well-developed no acute respiratory distress. No fever. No chills. EYES: No icterus sclerae, no conjunctivitis significant ptosis of the upper eyelid. EARS, NOSE, MOUTH, THROAT, and FACE: No sore throat, lymphadenopathy, carotid bruits or deformity. RESPIRATORY: No SOB cough or wheezes. CARDIOVASCULAR: No CP, Palpitation, PND, Orthopnea, or angina. GASTROINTESTINAL: No Abd pain, Nausea or vomiting, no Diarrhea or constipation, significant dysphagia GENITOURINARY: Negative for Hematuria or UTI, no kidney stones. INTEGUMENT/BREAST: Negative for any muscular injury with mild osteoarthritis. HEMATOLOGIC/LYMPHATIC: Negative for bleed or purpura. MUSCULOSKELTAL: Negative for Myalgia or arthralgia. NEURLOGICAL: No LOC, Sz or syncope, blurred vision dizziness or abnormality. Dysphagia. Encephalopathy BEHAVIORAL/PSYCH: Negative. ENDOCRINE: Negative. PHYSICAL EXAMINATION Gen: This is an 80-year-old female. Patient is resting in bed. She is drowsy easily arousable, alert to self HEENT: Head is atraumatic, normocephalic. Pupils equal, round. Sclerae is anicteric. Mild bilateral ptosis NECK: Supple. No JVD. No lymphadenopathy. No thyromegaly. No carotid bruit. LUNGS: Clear to auscultation. No wheezes or rhonchi. No intercostal retractions. HEART: Regular rate and rhythm. No murmur. ABDOMEN: Soft. Bowel sounds are present. No masses. No tenderness. EXTREMITIES: No pedal edema. No calf tenderness. NEUROLOGICAL: Patient is drowsy easily arousable, alert and oriented x1. Able to follow some commands. Nonverbal. ASSESSMENT AND PLAN 1 myasthenia gravis. Consult with neurology appreciated. Patient has been started on Mestinon via PEG tube. Tube feedings will be started once the tubing issue is resolved. Consult nutrition for recommendations. Mestinon 60 mg 3 times daily, IVIG has also been started. 2 severe dysphagia secondary to myasthenia gravis. Neurology consult appr eciated. Obtained acetylcholine receptor antibody. Consult for GI regarding PEG tube placement. 3 severe cervical radiculopathy: Patient will be seen Dr. Rick further management will be done. MRI of cervical spine as above. Continues hard cervical collar. 4 history of breast cancer colon in remission patient is doing very well so far. 5 Hypothyroidism: Continue patient on levothyroxine --nothing by mouth. 6 hypertension: Remain on amlodipine 5 mg a day and lisinopril 20 mg daily--n othing by mouth. Vasotec prn 7 abnormal therapy post breast cancer still on Arimidex 1 mg daily--nothing by mouth. 8 GI prophylaxis: Protonix IV 9 DVT prophylaxis: Patient will be on Lovenox subcutaneous. 10 episode of hypoxia secondary to SVT. Rate is currently controlled. Cardiology on consult appreciated. Cardizem drip DC'd will start Cardizem 30 mg twice a day via PEG tube CODE STATUS: Full code. DISCHARGE PLAN To be determined. Possibly home with homecare. PT and OT consults added. Impression and plan of care have been directed as dictated by the signing physician. Adina Lua nurse practitioner acting as scribe for signing physician. Objective - Vital Signs Vital signs: Vital Signs Temp 97.3 F L 05/29/20 11:40 Pulse 95 05/29/20 11:40 Resp 18 05/29/20 11:40 BP 127/71 05/29/20 11:40 Pulse Ox 94 L 05/29/20 11:40 Intake & Output 05/28/20 05/29/20 05/29/20 18:59 06:59 18:59 Intake Total 200 106.833 Balance 200 106.833 Weight 54.5 kg 57.5 kg Intake: IV 200 Intake, IV Titration 106.833 Amount Diltiazem 125 mg In 106.833 Sodium Chloride 0.9% 100 ml @ 5 MG/HR 5 mls/hr IV .Q24H [facility] Rx#:[id number] Other: Voiding Method Diaper Diaper Diaper Incontinent Incontinent Incontinent # Voids 2 1 - Labs CBC & Chem 7: 05/27/20 07:17 05/29/20 09:07 Labs: Abnormal Lab Results - Last 24 Hours (Table) 05/28/20 05/28/20 05/29/20 Range/Units 16:49 20:20 06:06 Chloride (98-107) mmol/L Carbon Dioxide (22-30) mmol/L BUN (7-17) mg/dL Glucose (74-99) mg/dL POC Glucose (mg/dL) 118 H 127 H 137 H (75-99) mg/dL Calcium (8.4-10.2) mg/dL Albumin (3.5-5.0) g/dL 05/29/20 Range/Units 09:07 Chloride 109 H (98-107) mmol/L Carbon Dioxide 32 H (22-30) mmol/L BUN 30 H (7-17) mg/dL Glucose 153 H (74-99) mg/dL POC Glucose (mg/dL) (75-99) mg/dL Calcium 8.2 L (8.4-10.2) mg/dL Albumin 3.1 L (3.5-5.0) g/dL
[2020-05-29 11:58] LABS: Glucose,Whole Blood 138 mg/dL (75-99)
[2020-05-29] MEDS ORDERED: IMMUNE GLOBULIN (GAMMAGARD) 5 GM in EMPTY BAG 1 BAG IV ONE (12:00)
[2020-05-29] MEDS ORDERED: IMMUNE GLOBULIN (GAMMAGARD) 20 GM in EMPTY BAG 1 BAG IV ONE (12:00)
--- NOTE | 2020-05-29 15:55 | ECHOF ---
Referral Reason:tachycardia MEASUREMENTS -------- HEIGHT: 165.1 cm WEIGHT: 57.2 kg BP: IVSd: 0.8 cm (0.6 - 1.1) LVIDd: 4.2 cm (3.9 - 5.3) LVPWd: 1.2 cm (0.6 - 1.1) IVSs: 1.1 cm LVIDs: 3.1 cm LVPWs: 1.1 cm LA Diam: 3.5 cm (2.7 - 3.8) LAESV Index (A-L): 38.37 ml/m Ao Diam: 3.2 cm (2.0 - 3.7) AV Cusp: 1.5 cm (1.5 - 2.6) MV EXCURSION: 16.659 mm (> 18.000) MV EF SLOPE: 70 mm/s (70 - 150) EPSS: 2.2 cm MV E Elvin: 0.84 m/s MV DecT: 218 ms MV A Elvin: 1.25 m/s MV E/A Ratio: 0.67 RAP: 5.00 mmHg RVSP: 35.73 mmHg FINDINGS -------- Sinus rhythm. This was a technically good study. LV size, wall thickness and systolic function are normal, with an EF greater than 55%. The left stephanie tricular size is normal. The right ventricle is normal in size. LA is severely dilated >40 ml/m2 The right atrial size is normal. There is mild aortic valve sclerosis. There is no evidence of aortic regurgitation. Mild mitral regurgitation is present. Mild tricuspid regurgitation present. There is mild pulmonary hypertension. Trace/mild (physiologic) pulmonic regurgitation. The aortic root size is normal. There is no pericardial effusion. CONCLUSIONS -------- 1. LV size, wall thickness and systolic function are normal, with an EF greater than 55%. 2. The left ventricular size is normal. 3. The right ventricle is normal in size. 4. LA is severely dilated >40 ml/m2 5. The right atrial size is normal. 6. There is mild aortic valve sclerosis. 7. Mild mitral regurgitation is present. 8. Mild tricuspid regurgitation present. 9. There is mild pulmonary hypertension. 10. Trace/mild (physiologic) pulmonic regurgitation. 11. The aortic root size is normal. 12. There is no pericardial effusion. DATA MANAGER: Olimpia Dinh RDCS
[2020-05-29] MEDS: DILTIAZEM ORAL 30 MG TAB PO SCH ×2 (16:06→22:34)
[2020-05-29 16:32] LABS: Glucose,Whole Blood 162 mg/dL (75-99)
--- NOTE | 2020-05-29 17:18 | P.PN ---
Subjective Progress Note Date: 05/29/20 The patient is seen in neurologic follow-up on May 29, 2020, via teleneurology. The patient's nurse is present in the room at the time of the examination. She reports that earlier today, the patient was pulling at all of her tubes and IVs. She also was reportedly holding onto the rails, well-being based. Last night, patient required soft restraints, because she was pulling at tubes. The patient reportedly has no difficulty breathing as long as she is receiving 6 L of O2 via nasal cannula. Per RN, the patient did have a brief conversation with her this morning. Objective - Vital Signs Vital signs: Vital Signs Temp 97.3 F L 05/29/20 11:40 Pulse 95 05/29/20 11:40 Resp 18 05/29/20 14:00 BP 127/71 05/29/20 11:40 Pulse Ox 94 L 05/29/20 11:40 Intake & Output 05/28/20 05/29/20 05/29/20 18:59 06:59 18:59 Intake Total 200 106.833 0 Balance 200 106.833 0 Weight 54.5 kg 57.5 kg Intake: IV 200 Intake, IV Titration 106.833 Amount Diltiazem 125 mg In 106.833 Sodium Chloride 0.9% 100 ml @ 5 MG/HR 5 mls/hr IV .Q24H [facility] Rx#:[id number] Oral 0 Other: Voiding Method Diaper Diaper Diaper Incontinent Incontinent Incontinent # Voids 2 1 1 - Exam Gen.: The patient is reclining in the bed. Her eyes are closed when we entered the room. She does open them in response to touch and voice. She is in no acute distress. HEENT: Head is atraumatic, normocephalic. Fundus not visualized. There is no scleral icterus. Mucous membranes are dry. Neck: The patient is wearing a soft cervical collar Lungs: The patient is breathing comfortably. There is no accessory muscle use Neurological examination Mental status: The patient is nonverbal. She is reportedly very hard of hearing. She does open her eyes in response to touch and voice. She follows no commands. Cranial nerves: Pupils are equal and reactive. There is bilateral ptosis. There is no obvious asymmetry of the face. The patient does not cooperate with further testing of cranial nerves. Motor: The patient does not cooperate with strength testing. She is observed to reposition her upper body in the bed. She does resist passive extension of her legs. - Labs CBC & Chem 7: 05/27/20 07:17 05/29/20 09:07 Labs: Abnormal Lab Results - Last 24 Hours (Table) 05/28/20 05/28/20 05/29/20 Range/Units 16:49 20:20 06:06 Chloride (98-107) mmol/L Carbon Dioxide (22-30) mmol/L BUN (7-17) mg/dL Glucose (74-99) mg/dL POC Glucose (mg/dL) 118 H 127 H 137 H (75-99) mg/dL Calcium (8.4-10.2) mg/dL Albumin (3.5-5.0) g/dL 05/29/20 05/29/20 Range/Units 09:07 11:57 Chloride 109 H (98-107) mmol/L Carbon Dioxide 32 H (22-30) mmol/L BUN 30 H (7-17) mg/dL Glucose 153 H (74-99) mg/dL POC Glucose (mg/dL) 138 H (75-99) mg/dL Calcium 8.2 L (8.4-10.2) mg/dL Albumin 3.1 L (3.5-5.0) g/dL Assessment and Plan Assessment: 1. Probable a exacerbation of myasthenia gravis-IV IgG daily 4 of 5 2. Patient reportedly slightly less responsive today however, was observed by nursing to be pulling at all IVs and tubes, with bilateral upper extremities. Plan: 1. Continue IV IgG for total of 5 days 2. If not already ordered, physical therapy evaluation would be beneficial 3. Will consider plasmapheresis, if I IgG is not beneficial 4. Begin Mestinon when NG tube is able to be used Time with Patient: Less than 30 (spent 25 minutes with patient via telemetry neurology)
[2020-05-29 20:42] LABS: Glucose,Whole Blood 237 mg/dL (75-99)
[2020-05-30] MEDS: METOPROLOL TARTRATE 5 MG/5 ML VIAL IVP SCH (03:54)
[2020-05-30] MEDS: LEVOTHYROXINE 50 MCG TAB PO SCH (06:05)
[2020-05-30 06:11] LABS: Glucose,Whole Blood 210 mg/dL (75-99)
[2020-05-30 07:31] LABS: ALT 35 U/L (4-34); AST 31 U/L (14-36); African American GFR (CKD) >90 (>60 ml/min/1.73 sqM); Alkaline Phosphatase 76 U/L (38-126); Anion Gap 0 mmol/L; Blood Urea Nitrogen 42 mg/dL (7-17); Calcium 8.6 mg/dL (8.4-10.2); Carbon Dioxide 33 mmol/L (22-30); Chloride 109 mmol/L (98-107); Glucose 243 mg/dL (74-99); Magnesium 2.4 mg/dL (1.6-2.3); Non-African American GFR(CKD) 86 (>60 ml/min/1.73 sqM); Phosphorus 3.1 mg/dL (2.5-4.5); Sodium 142 mmol/L (137-145); Total Bilirubin 0.8 mg/dL (0.2-1.3); Total Protein 8.1 g/dL (6.3-8.2)
[2020-05-30] MEDS: ANASTROZOLE 1 MG TAB PO SCH (08:48)
[2020-05-30] MEDS: DILTIAZEM ORAL 30 MG TAB PO SCH (08:48)
[2020-05-30] MEDS: ENOXAPARIN 40 MG/0.4 ML SYRINGE SQ SCH (08:48)
[2020-05-30] MEDS: PYRIDOSTIGMINE 60 MG TAB NG-TUBE SCH ×3 (08:48→22:37)
[2020-05-30] MEDS: PANTOPRAZOLE 40 MG/10 ML VIAL IVP SCH ×2 (08:48→20:13)
--- NOTE | 2020-05-30 09:04 | P.PN ---
<Adina Lua M - Last Filed: 05/30/20 09:40> Subjective Progress Note Date: 05/30/20 80-year-old female one of Dr. Pryor patient with past medical history of breast cancer, hypertension, severe osteoarthritis and hypothyroidism who has not been feeling well since March when developed to have trouble holding her head straight up ended up coming to [facility] at the time x-ray showed severe arthritis with possible left mild disc disease. Patient ended up going back to see Dr. Pryor more testing to be order. Lately patient is up to have severe dysphagia where patient was scheduled to have swallow study came back severely abnormal and higher possibility for central dysphagia patient ended up coming to the emergency department where was seen and evaluated ended up going for CT of the brain and the cervical spine showed moderate multilevel spondylotic change with multiple degenerative a grade 1 anterolisthesis with small vessel disease on CAT scan of the brain. With her clinical exam also notice slight ptosis of both upper eyelid patient had severe high possibility for having myasthenia gravis just a diagnosed right. Patient was seen and evaluated by neurology and testing with acetylcholine receptor binding antibody was requested. Patient was started on Mestinon 50 mg 3 times a day by neurology also requests to see Dr. Rick for possible severe abnormality with radiculopathy of the cervical spine. As of concern of her breast cancer patient has been in remission at this point in doing well. 05/25: Patient has been seen by Dr. Rick and he has ordered MRI of the cervical spine. She currently has a c-collar in place. CAT scan of the cervical and thoracic spine reveals spondylotic hypertrophic degenerative changes in the cervical and thoracic spine. Mild subluxation deformities at C3-4 and C5-6 without evidence of significant cervical bony spinal stenosis. No acute bony abnormality seen. Patient is to be seen by speech therapy today. Patient is upset that she is nothing by mouth status but we are waiting for speech therapy evaluation. Discussed briefly possibility of need for PEG tube. Repeat CBC is unremarkable with lymphocytes at 0.4. Sodium 135, potassium 4.3, BUN 15 and creatinine 0.57. TSH 0.096 and free T4 2 0.48. Acetylcholine receptor binding antibody pending. Clinic Neuro continues to follow the patient as well. She has been afebrile, heart rate 100, blood pressure 130/62, pulse ox 97% on room air. 05/26: Patient has been evaluated by speech and is at risk for all consistencies and not safe for any oral intake. Discussed with the patient option of PEG tube. This was also discussed with the patient's son while. Subsequently, discussion with Dr. Rose that patient may benefit from IVIG, NG tube with Mestinon 60 mg 3 times daily and if she has good results, may not require PEG tube placement. He has contacted the patient's son and he is in agreement. MRI of the cervical spine reveals degenerative disc disease, multilevel foraminal encroachment, spinal stenosis. Orthopedic spine is still recommending hard collar. Patient has been afebrile, heart rate 113, blood pressure 159/72, pulse ox 94% on room air. GI was consult within updated regarding plan to postpone PEG tube placement and observe for improvement with IVIG and Mestinon. 05/27: Yesterday, NG tube was not able to be placed. Patient was started on immunoglobulin yesterday by Dr. Anguiano. Plan is for PEG tube placement today and start patient on Mestinon 60 mg 3 times daily. The patient is more confused today. Patient has been afebrile, heart rate 98, blood pressure 130/76, pulse ox 97% on room air. Repeat blood work reveals normal CBC. INR 1. BUN 24 and creatinine 0.57. Blood sugar running between 90 and 124. Therapies have recommended home with homecare or subacute rehab. Family is hoping for home with home care. 05/28: Patient went into SVT yesterday evening, this morning's EKG is a sinus rhythm. Patient required nonrebreather last night because pulse ox dropped down to 79%. It appears patient has been going in and out of atrial fibrillation. She was started on Cardizem drip this morning after Lopressor did not improve her heart rate. Patient is more lethargic and quiet this morning. Continued weakness noted. After long discussion with patient's son via phone, family did agree to PEG tube placement which GI will perform today. Patient was seen by cardiology and atrial fibrillation was ruled out. 05/29: Patient is likely to place and we'll start her feedings however due to inability for proper tubing the feeding was on hold. We will consult nutrition for recommendations. Patient continued to be more lethargic and quiet. She is able to follow some commands however she is not able to answer any questions. Lalit buck will be DC'd patient remains in normal sinus rhythm with a pressure less than 120 systolically. Patient continues to be afebrile. 05/30: Patiet has declined overnight. Her blood pressure is 90s over 50s. She continues to be unresponsive. Positive cornea reflex, corneas reactive and equal. Patient is unresponsive to painful stimuli. Recommendation for plasmapheresis. That is not offered here at this facility we will transfer her to [facility] With and son related to transfer. At this time is agreeable to the transfer and can continue with full code. REVIEW OF SYSTEMS Unable to obtain due to mental status change PHYSICAL EXAMINATION Gen: This is an 80-year-old female. Patient is resting in bed. SHe is unresponsive to painful stimuli. HEENT: Head is atraumatic, normocephalic. Pupils equal, round. Sclerae is anicteric. Coronary reflex intact. No doll eye noted Mild bilateral ptosis NECK: Supple. No JVD. No lymphadenopathy. No thyromegaly. No carotid bruit. LUNGS: Clear to auscultation. No wheezes or rhonchi. No intercostal retractions. HEART: Irregular rate and rhythm. No murmur. ABDOMEN: Soft. Bowel sounds are present. No masses. No tenderness. EXTREMITIES: No pedal edema. No calf tenderness. Decreased plantar reflex noted NEUROLOGICAL: Patient is unresponsive to painful stimuli. Unable to do sensory exam related to patient's cooperation. ASSESSMENT AND PLAN 1 myasthenia gravis. Consult with neurology appreciated. Patient has been s tarted on Mestinon via PEG tube. Tube feedings will be started once the tubing issue is resolved. Recommendation for plasmapheresis. Patient will be transferred to a facility that offers this. Mestinon 60 mg 3 times daily, IVIG has also been started. 2 severe dysphagia secondary to myasthenia gravis. Neurology consult appreciated. Obtained acetylcholine receptor antibody. Consult for GI r egarding PEG tube placement. 3 severe cervical radiculopathy: Patient will be seen Dr. Rick further management will be done. MRI of cervical spine as above. Continues hard cervical collar. 4 history of breast cancer colon in remission patient is doing very well so far. 5 Hypothyroidism: Continue patient on levothyroxine --nothing by mouth. 6 hypertension: Remain on amlodipine 5 mg a day and lisinopril 20 mg daily--nothing by mouth. Vasotec prn 7 abnormal therapy post breast cancer still on Arimidex 1 mg daily--nothing by mouth. 8 GI prophylaxis: Protonix IV 9 DVT prophylaxis: Patient will be on Lovenox subcutaneous. 10 episode of hypoxia secondary to SVT. Rate is currently controlled. Cardiology on consult appreciated. Cardizem drip DC'd will start Cardizem 30 mg twice a day via PEG tube 11. A. fib. Patient was on Cardizem IV which has been discontinued and we will start Cardizem 30mg via PEG tube twice a day. CODE STATUS: Full code. DISCHARGE PLAN To be determined. Transfer to another facility Impression and plan of care have been directed as dictated by the signing physician. Adina Lua nurse practitioner acting as scribe for signing physician. Objective - Vital Signs Vital signs: Vital Signs Temp 97.5 F L 05/30/20 08:38 Pulse 82 05/30/20 08:38 Resp 16 05/30/20 08:38 BP 96/57 05/30/20 08:38 Pulse Ox 94 L 05/30/20 08:38 Intake & Output 05/29/20 05/30/20 05/30/20 18:59 06:59 18:59 Intake Total 0 Balance 0 Weight 62 kg Intake: Oral 0 Other: Voiding Method Diaper Diaper Incontinent Incontinent # Voids 1 1 - Labs CBC & Chem 7: 05/27/20 07:17 05/30/20 06:55 Labs: Abnormal Lab Results - Last 24 Hours (Table) 05/29/20 05/29/20 05/29/20 Range/Units 09:07 11:57 16:31 Chloride 109 H (98-107) mmol/L Carbon Dioxide 32 H (22-30) mmol/L BUN 30 H (7-17) mg/dL Glucose 153 H (74-99) mg/dL POC Glucose (mg/dL) 138 H 162 H (75-99) mg/dL Calcium 8.2 L (8.4-10.2) mg/dL Magnesium (1.6-2.3) mg/dL ALT (4-34) U/L Albumin 3.1 L (3.5-5.0) g/dL 05/29/20 05/30/2020 Range/Units 20:16 05:59 06:55 Chloride 109 H (98-107) mmol/L Carbon Dioxide 33 H (22-30) mmol/L BUN 42 H (7-17) mg/dL Glucose 243 H (74-99) mg/dL POC Glucose (mg/dL) 237 H 210 H (75-99) mg/dL Calcium (8.4-10.2) mg/dL Magnesium 2.4 H (1.6-2.3) mg/dL ALT 35 H (4-34) U/L Albumin 3.0 L (3.5-5.0) g/dL <Jessa Soliman - Last Filed: 06/02/20 08:58> Objective - Vital Signs Vital signs: Vital Signs Temp 96.8 F L 05/30/20 20:00 Pulse 95 05/30/20 23:20 Resp 9 L 05/30/20 23:20 BP 122/51 05/30/20 23:30 Pulse Ox 97 05/30/20 23:10 ABP, PAP, CO, CI - Last Documented Arterial Blood Pressure 148/57 - Labs CBC & Chem 7: 05/30/20 14:35 05/30/20 14:35 Labs: Microbiology - Last 24 Hours (Table) 05/30/20 13:14 Gram Stain - Preliminary Sputum Sputum Culture - Preliminary Klebsiella pneumoniae Assessment and Plan Assessment: patient was intubated prior to transfer as patient in myasthenia gravis exacerbation
[2020-05-30 11:49] LABS: Glucose,Whole Blood 208 mg/dL (75-99)
[2020-05-30] MEDS ORDERED: IMMUNE GLOBULIN (GAMMAGARD) 5 GM in EMPTY BAG 1 BAG IV ONE (12:00)
[2020-05-30] MEDS ORDERED: IMMUNE GLOBULIN (GAMMAGARD) 20 GM in EMPTY BAG 1 BAG IV ONE (12:00)
[2020-05-30 12:05] LABS: Glucose,Whole Blood 212 mg/dL (75-99)
[2020-05-30] MEDS ORDERED: NOREPINEPHRIN 4 MG-0.9% NS PMX 4 MG/250 ML ML IV ONE (12:11)
--- NOTE | 2020-05-30 12:20 | XR ---
EXAMINATION TYPE: XR chest 1V portable DATE OF EXAM: 05/30/2020 COMPARISON: 05/24/2020 INDICATION: Shallow breathing, hypoxia TECHNIQUE: Single frontal view of the chest is obtained. FINDINGS: The heart size is normal. The pulmonary vasculature is common and. Left lower lobe infiltrate is present. Mild right basilar infiltrate is present. IMPRESSION: 1. Mild bibasilar infiltrates. Correlate for subsegmental atelectasis and atypical pneumonia. Left lo wer lobe infiltrate is improving 2. Prominent pulmonary vascular markings. Atypical pulmonary edema should be considered within the di fferential.
[2020-05-30] MEDS ORDERED: propofoL 100 ML IV ONE (12:46)
[2020-05-30 12:49] LABS: Glucose,Whole Blood 204 mg/dL (75-99)
[2020-05-30 12:56] LABS: Glucose,Whole Blood 195 mg/dL (75-99)
[2020-05-30 13:09] LABS: ABG Base Excess -3.6 mmol/L; ABG HCO3 25 mmol/L (21-25); ABG PCO2 66 mmHg (35-45); ABG PO2 77 mmHg (83-108); ABG TCO2 27 mmol/L (19-24); Allen Test Performed? Yes
[2020-05-30 13:12] LABS: ABG PH 7.18 (7.35-7.45)
--- NOTE | 2020-05-30 13:15 | XR ---
EXAMINATION TYPE: XR chest 1V portable DATE OF EXAM: 05/30/2020 COMPARISON: 05/30/2020 INDICATION: ET tube placement and NG tube placement TECHNIQUE: Single frontal view of the chest is obtained. FINDINGS: The heart size is normal. The pulmonary vasculature is normal. Mild infiltrate is at the left base. A minimal left pleural effusion may be present. Nasogastric tube transverses the thorax with the tip within the abdomen. Endotracheal tube tip is 5 c m above the tamiko. IMPRESSION: 1. Small left pleural effusion and mild left lower lobe infiltrate. 2. Lines and catheters discussed above
[2020-05-30] MEDS: DEXTROSE 5%-0.45% NACL 1,000 ML IV SCH (13:38)
[2020-05-30] MEDS ORDERED: SODIUM CHLORIDE 0.9% 2,000 ML IV ONE (14:08)
--- NOTE | 2020-05-30 14:08 | P.CNPUL ---
History of Present Illness Consult date: 05/30/20 Chief complaint: Hypoxic and hypercapnic respiratory failure History of present illness: 80-year-old woman that according to her son has been having head drop since the end of March 2020. He stated that the during the end of March she was c omplaining of a horizontal diplopia out of both eyes. And the early to mid April 2020 and she doesn't look the dysphagia initially to solids than liquids. She's been having weakness of her lower extremities and that's been getting worse for the last couple months according to the son. She does have history of breast cancer in 2013 and that he stated that she was in remission he thinks that she had the radiation therapy. The patient was being further worked up. The patient was being considered for probable myasthenia gravis with an acute exacerbation/crisis. The acetylcholine receptors were sent and the results are still pending for now. Meanwhile, the patient was started on Mestinon and the patient was also started on IVIG. The patient was being arranged to transfer to [facility] and immediately this morning the patient had worsening in her condition with the patient became unresponsive, and she was having agonal breathing. She had to be intubated and she was brought in today intensive care unit. At this point in time, she is intubated on a mechanical ventilator. She is an assist-control mode at the rate of 14 with a tidal volume of 400 and FiO2 of 100% with a PEEP of 5. The patient is sedated with propofol which is running at 20 mcg/kg per minute. The patient also became hypotensive. And for now, the patient is on norepinephrine infusion running at 0.21 g per KG per minute. Jurado cath was inserted. Urine output is adequate for now. The chest x-ray post intubation showed mild bibasilar infiltrates. There is also left lower lobe infiltrates. There is increased pulmonary vascular markings. ET tube is in a good location. Noted the patient a CAT scan of the brain on 05/29/2020 and it showed mild chronic-appearing white matter disease. The echocardiogram that was done on 05/29/2020 showed 11 to ejection fraction of 55%. The patient has severely dilated LA, no other significant valvular abnormalities and the patient has no pericardial effusion. Note that based on her difficulties in swallowing, the patient was given a PEG tube. During the same hospitalization, the patient was seen also by spine surgery. MRI of the spine was reviewed and there was no evidence of any acute fracture. There was cervical spondylosis, severe and thoracic kyphosis. No evidence of any C-spine fracture. Review of Systems ROS unobtainable: due to endotracheal tube Past Medical History Past Medical History: Cancer, Hypertension, Osteoarthritis (OA) Additional Past Medical History / Comment(s): HYPOTHYROID,BREAST CANCER SEPTEMBER 2013, RASH ON LEFT BREAST -SEEN AT OUTPT CLINIC AND STARTED ANTIBIOTIC 10/22/13, NOTIFIED DR MCKENZIE OFFICE. STATES INCISIONS ARE HEALING WELL FROM BREAST SURGERY. 10/06/13 History of Any Multi-Drug Resistant Organisms: None Reported Past Surgical History: Breast Surgery, Hysterectomy Additional Past Surgical History / Comment(s): SINUS SURGERY, LEFT BREAST LUMPECTOMY 10/06/2013 Past Anesthesia/Blood Transfusion Reactions: No Reported Reaction Additional Past Anesthesia/Blood Transfusion Reaction / Comment(s): STATES PT WAS TOLD SHE NEEDED OXYGEN DURING SURGERY AND TO LET ANESTHESIA KNOW. Past Psychological History: No Psychological Hx Reported Smoking Status: Former smoker Past Alcohol Use History: None Reported Past Drug Use History: None Reported - Past Family History Sister(s) Family Medical History: Cancer Medications and Allergies Home Medications Medication Instructions Recorded Confirmed Type Levothyroxine Sodium [Synthroid] 88 mcg PO DAILY 10/23/13 05/24/20 History Anastrozole [Arimidex] 1 mg PO DAILY 04/17/20 05/24/20 History amLODIPine [Norvasc] 5 mg PO DAILY 04/17/20 05/24/20 History lisinopriL [Zestril] 20 mg PO DAILY 04/17/20 05/24/20 History Allergies Allergy/AdvReac Type Severity Reaction Status Date / Time No Known Allergies Allergy Verified 05/24/20 13:31 Physical Exam Vitals: Vital Signs Temp Pulse Resp BP BP Pulse Ox 05/30/20 11:17 96 16 100/63 96 05/30/20 08:38 97.5 F L 82 16 91/56 96/57 94 L 05/30/20 03:20 97.9 F 86 16 129/72 94 L 05/30/20 02:00 86 16 05/29/20 23:42 97.8 F 104 H 16 136/80 97 05/29/20 20:00 97.3 F L 94 18 125/75 98 05/29/20 16:00 97.7 F 103 H 18 105/70 96 05/29/20 14:00 18 Intake and Output 05/29/20 05/30/20 05/30/20 22:59 06:59 14:59 Intake Total 500 Output Total 125 Balance 375 Intake: IV 500 0.9 500 Output: Urine 125 Other: Voiding Method Diaper Diaper Diaper Incontinent Incontinent Incontinent # Voids 1 Weight 62 kg 69.4 kg Genitalia patient is sedated, comfortable and the patient is not in acute respiratory distress. Currently she is intubated on a mechanical ventilator. Orogastric and orotracheal tube are both in place. Head exam was generally normal. There was no scleral icterus or corneal arcus. Mucous membranes were moist. Neck was supple and without jugular venous distension, thyromegaly, or carotid bruits. Carotids were easily palpable bilaterally. There was no adenopathy. Lungs sounds are diminished and there are crackles at lung bases bilaterally and scattered rhonchi. Cardiac exam revealed the PMI to be normally situated and sized. The rhythm was regular and no extrasystoles were noted during several minutes of auscultation. The first and second heart sounds were normal and physiologic splitting of the second heart sound was noted. There were no murmurs, rubs, clicks, or gallops. Abdominal exam revealed normal bowel sounds. The abdomen was soft, non-tender, and without masses, organomegaly, or appreciable enlargement of the abdominal aorta. The patient has a PEG tube in place Examination of the extremities revealed easily palpable radial, femoral and pedal pulses. There was no cyanosis, clubbing or edema. Examination of the skin revealed no evidence of significant rashes, suspicious appearing nevi or other concerning lesions. Neurologically, the patient is sedated for now. Pupils are equal and reactive to light. No facial asymmetry. Motor function cannot be assessed. Sensory function cannot be assessed. Reflexes are diminished in all 4 extremities bilaterally, symmetrical Results - Laboratory Findings CBC and BMP: 05/27/20 07:17 05/30/20 06:55 ABG WBC 8.7 k/uL (3.8-10.6) 05/27/20 07:17 RBC 5.00 m/uL (3.80-5.40) 05/27/20 07:17 Hgb 13.7 gm/dL (11.4-16.0) 05/27/20 07:17 Hct 43.2 % (34.0-46.0) 05/27/20 07:17 MCV 86.4 fL (80.0-100.0) 05/27/20 07:17 MCH 27.3 pg (25.0-35.0) 05/27/20 07:17 MCHC 31.6 g/dL (31.0-37.0) 05/27/20 07:17 RDW 14.9 % (11.5-15.5) 05/27/20 07:17 Plt Count 423 k/uL (150-450) 05/27/20 07:17 MPV 6.5 05/27/20 07:17 Neutrophils % 91 % 05/25/20 07:35 Lymphocytes % 8 % 05/25/20 07:35 Monocytes % 1 % 05/25/20 07:35 Eosinophils % 0 % 05/25/20 07:35 Basophils % 0 % 05/25/20 07:35 Neutrophils # 4.3 k/uL (1.3-7.7) 05/25/20 07:35 Lymphocytes # 0.4 k/uL (1.0-4.8) L 05/25/20 07:35 Monocytes # 0.1 k/uL (0-1.0) 05/25/20 07:35 Eosinophils # 0.0 k/uL (0-0.7) 05/25/20 07:35 Basophils # 0.0 k/uL (0-0.2) 05/25/20 07:35 PT 10.7 sec (9.0-12.0) 05/27/20 07:17 INR 1.0 (<1.2) 05/27/20 07:17 APTT 22.4 sec (22.0-30.0) 05/24/20 12:46 ABG pH 7.18 (7.35-7.45) L* 05/30/20 13:08 ABG pCO2 66 mmHg (35-45) H 05/30/20 13:08 ABG pO2 77 mmHg (83-108) L 05/30/20 13:08 ABG O2 Saturation 97.0 % (94-97) 05/30/20 13:08 Sodium 142 mmol/L (137-145) 05/30/20 06:55 Potassium 4.0 mmol/L (3.5-5.1) 05/30/20 06:55 Chloride 109 mmol/L (98-107) H 05/30/20 06:55 Carbon Dioxide 33 mmol/L (22-30) H 05/30/20 06:55 Anion Gap 0 mmol/L 05/30/20 06:55 BUN 42 mg/dL (7-17) H 05/30/20 06:55 Creatinine 0.58 mg/dL (0.52-1.04) 05/30/20 06:55 Est GFR (CKD-EPI)AfAm >90 (>60 ml/min/1.73 sqM) 05/30/20 06:55 Est GFR (CKD-EPI)NonAf 86 (>60 ml/min/1.73 sqM) 05/30/20 06:55 Glucose 243 mg/dL (74-99) H 05/30/20 06:55 POC Glucose (mg/dL) 195 mg/dL (75-99) H 05/30/20 12:55 POC Glu [employer] Ashely Yun 05/30/20 12:55 Calcium 8.6 mg/dL (8.4-10.2) 05/30/20 06:55 Phosphorus 3.1 mg/dL (2.5-4.5) 05/30/20 06:55 Magnesium 2.4 mg/dL (1.6-2.3) H 05/30/20 06:55 Total Bilirubin 0.8 mg/dL (0.2-1.3) 05/30/20 06:55 AST 31 U/L (14-36) 05/30/20 06:55 ALT 35 U/L (4-34) H 05/30/20 06:55 Alkaline Phosphatase 76 U/L (38-126) 05/30/20 06:55 Troponin I 0.023 ng/mL (0.000-0.034) 05/24/20 12:46 Total Protein 8.1 g/dL (6.3-8.2) 05/30/20 06:55 Albumin 3.0 g/dL (3.5-5.0) L 05/30/20 06:55 TSH 0.096 mIU/L (0.465-4.680) L 05/24/20 12:46 Free T4 2.48 ng/dL (0.78-2.19) H 05/24/20 12:46 Coronavirus (PCR) Not Detected (Not Detectd) 05/30/20 11:04 PT/INR, D-dimer PT 10.7 sec (9.0-12.0) 05/27/20 07:17 INR 1.0 (<1.2) 05/27/20 07:17 Abnormal lab findings: Abnormal Labs 05/24/20 05/24/20 05/24/20 12:46 12:46 12:46 Plt Count 461 H Lymphocytes # 0.8 L ABG pH ABG pCO2 ABG pO2 ABG Total CO2 Sodium 132 L Chloride Carbon Dioxide 19 L BUN 18 H Glucose POC Glucose (mg/dL) Calcium Phosphorus Magnesium ALT Albumin TSH 0.096 L Free T4 2.48 H 05/25/20 05/25/20 05/25/20 07:35 07:35 20:09 Plt Count Lymphocytes # 0.4 L ABG pH ABG pCO2 ABG pO2 ABG Total CO2 Sodium 135 L Chloride Carbon Dioxide 20 L BUN Glucose POC Glucose (mg/dL) 103 H Calcium Phosphorus Magnesium ALT Albumin TSH Free T4 05/26/20 05/26/20 05/26/20 06:15 11:46 20:29 Plt Count Lymphocytes # ABG pH ABG pCO2 ABG pO2 ABG Total CO2 Sodium Chloride Carbon Dioxide BUN Glucose POC Glucose (mg/dL) 125 H 126 H 124 H Calcium Phosphorus Magnesium ALT Albumin TSH Free T4 05/27/20 05/27/20 05/27/20 07:17 07:17 12:14 Plt Count Lymphocytes # ABG pH ABG pCO2 ABG pO2 ABG Total CO2 Sodium Chloride 108 H Carbon Dioxide BUN 24 H Glucose 122 H POC Glucose (mg/dL) 116 H Calcium Phosphorus 2.3 L Magnesium 2.4 H ALT Albumin TSH Free T4 05/27/20 05/27/20 05/28/20 16:25 20:38 01:39 Plt Count Lymphocytes # ABG pH ABG pCO2 ABG pO2 ABG Total CO2 Sodium Chloride Carbon Dioxide BUN Glucose POC Glucose (mg/dL) 101 H 103 H 161 H Calcium Phosphorus Magnesium ALT Albumin TSH Free T4 12/11/20 12/11/20 12/11/20 06:17 11:37 16:49 Plt Count Lymphocytes # ABG pH ABG pCO2 ABG pO2 ABG Total CO2 Sodium Chloride Carbon Dioxide BUN Glucose POC Glucose (mg/dL) 113 H 142 H 118 H Calcium Phosphorus Magnesium ALT Albumin TSH Free T4 05/28/20 05/29/20 05/29/20 20:20 06:06 09:07 Plt Count Lymphocytes # ABG pH ABG pCO2 ABG pO2 ABG Total CO2 Sodium Chloride 109 H Carbon Dioxide 32 H BUN 30 H Glucose 153 H POC Glucose (mg/dL) 127 H 137 H Calcium 8.2 L Phosphorus Magnesium ALT Albumin 3.1 L TSH Free T4 05/29/20 05/29/20 05/29/20 11:57 16:31 20:16 Plt Count Lymphocytes # ABG pH ABG pCO2 ABG pO2 ABG Total CO2 Sodium Chloride Carbon Dioxide BUN Glucose POC Glucose (mg/dL) 138 H 162 H 237 H Calcium Phosphorus Magnesium ALT Albumin TSH Free T4 05/30/20 05/30/20 05/30/20 05:59 06:55 11:47 Plt Count Lymphocytes # ABG pH ABG pCO2 ABG pO2 ABG Total CO2 Sodium Chloride 109 H Carbon Dioxide 33 H BUN 42 H Glucose 243 H POC Glucose (mg/dL) 210 H 208 H Calcium Phosphorus Magnesium 2.4 H ALT 35 H Albumin 3.0 L TSH Free T4 05/30/20 05/30/20 05/30/20 12:04 12:43 12:55 Plt Count Lymphocytes # ABG pH ABG pCO2 ABG pO2 ABG Total CO2 Sodium Chloride Carbon Dioxide BUN Glucose POC Glucose (mg/dL) 212 H 204 H 195 H Calcium Phosphorus Magnesium ALT Albumin TSH Free T4 05/30/20 13:08 Plt Count Lymphocytes # ABG pH 7.18 L* ABG pCO2 66 H ABG pO2 77 L ABG Total CO2 27 H Sodium Chloride Carbon Dioxide BUN Glucose POC Glucose (mg/dL) Calcium Phosphorus Magnesium ALT Albumin TSH Free T4 - Diagnostic Findings Chest x-ray: image reviewed Assessment and Plan Plan: 1 acute respiratory failure. The patient was found to be in irregular-agonal respiratory breathing and the patient was completely unresponsive, and she had to be intubated and placed on a mechanical ventilator and she was brought in to the intensive care unit. Chest exam shows pulmonary vessel congestion and prominence in addition to lower lobe pulmonary infiltrates. Consider aspi ration. 2 acute hypoxic/hypercapnic respiratory failure. Blood gases was noted and the patient continues to have a component of respiratory acidosis. Oxygenation is improved 3 Difficulties with muscle weakness with a head drop, diplopia, dysphagia and significant weakness. Consider myasthenia gravis with an acute exacerbation/crisis. The patient was given IVIG and started on Mestinon. The p atient was supposed to get transferred to another hospital for possible plasmapheresis. The patient has associated total of 4 acute hypotension currently currently on a combination of fluid and pressors. Consider sepsis 5 severe dysphagia post PEG tube insertion 6 cervical radiculopathy and spondylosis 7 thoracic kyphosis 8 hypothyroidism 9 history of breast cancer Plan Keep the patient sedated for now with propofol Gradually dropped down the FiO2 to maintain a saturation above 90%. We'll increase the PEEP up to 8 The patient has associated total of 4 doses of IVIG and Mestinon the patient is being considered for plasmapheresis. Meanwhile, as the story receptor antibodies are still pending for now. Neurologist on the case Covering this patient with IV Zosyn Sputum Gram stain and culture Blood culture IV fluids and the patient will receive a total of 2 L of bolus and then maintain at the rate of 100 mL an hour normal saline Keep the patient nothing by mouth for now Lovenox subcu for DVT prophylaxis Condition is critical we will continue to follow. We'll establish a triple lumen catheter and arterial line. The plan is to transfer this patient on [facility].
[2020-05-30] MEDS ORDERED: SODIUM CHLORIDE 0.9% 1,000 ML IV SCH (14:15)
--- NOTE | 2020-05-30 14:22 | P.PCN ---
Date of Procedure: 05/30/20 Preoperative Diagnosis: Acute hypoxic/hypercapnic respiratory failure Postoperative Diagnosis: Same Procedure(s) Performed: Insertion of a central line and insertion of arterial line Anesthesia: local Surgeon: Brianna John Estimated Blood Loss (ml): 0 Pathology: other Condition: critical Disposition: ICU Operative Findings: Central line insertion Indication: Hemodynamic monitoring/Intravenous access. A time-out was completed verifying correct patient, procedure, site, positioning, and implant(s) or special equipment if applicable. The patient was placed in a dependent position appropriate for central line placement based on the vein to be cannulated. The patien's left neck was prepped and draped in sterile fashion. 1% Lidocaine was used to anesthetize the surrounding skin area. A triple lumen 9F Cordis catheter was introduced into the internal jugular vein using Seldinger technique. The catheter was threaded smoothly over the guide wire and appropriate blood return was obtained. Each lumen of the catheter was evacuated of air and flushed with sterile saline. The catheter was then sutured in place to the skin and a sterile dressing applied. Perfusion to the extremity distal to the point of catheter insertion was checked and found to be adequate. The patient tolerated the procedure well and there were no complications. Arterial line insertion Indication: Hemodynamic monitoring. A time-out was completed verifying correct patient, procedure, site, positioning, and implant(s) or special equipment if applicable. Allens test was performed to ensure adequate perfusion. The patients left wrist was prepped and draped in sterile fashion. 1% Lidocaine was used to anesthetize the area. An 18G Arrow arterial line was introduced into the [radial/femoral] artery. The catheter was threaded over the guide wire and the needle was removed with appropriate pulsatile blood return. Blood loss was minimal. The catheter was then sutured in place to the skin and a sterile dressing applied. Perfusion to the extremity distal to the point of catheter insertion was checked and found to be adequate. The patient tolerated the procedure well and there were no complications.
--- NOTE | 2020-05-30 14:31 | XR ---
EXAMINATION TYPE: XR chest 1V portable DATE OF EXAM: 05/30/2020 COMPARISON: Earlier same day. HISTORY: Line placement. TECHNIQUE: Single frontal view of the chest is obtained. FINDINGS: There is placement of a left IJ catheter with tip overlying the caval atrial junction. The endotracheal and nasogastric tubes remain in place. There are persistent bibasilar opacities with sm all pleural effusions, greater on the left. No pneumothorax. The cardiac silhouette size is within no rmal limits. The osseous structures are intact. IMPRESSION: As above.
[2020-05-30 14:57] LABS: Basophils % (A) 0 %; Eosinophils # (A) 0.1 k/uL (0-0.7); Eosinophils % (A) 1 %; HCT 36.7 % (34.0-46.0); HGB 12.3 gm/dL (11.4-16.0); Hypochromasia Slight; Lymphocytes # (A) 0.3 k/uL (1.0-4.8); Lymphocytes % (A) 4 %; MCH 28.9 pg (25.0-35.0); MCHC 33.6 g/dL (31.0-37.0); MCV 86.2 fL (80.0-100.0); Mean Platelet Volume 7.4; Monocytes # (A) 0.2 k/uL (0-1.0); Monocytes % (A) 3 %; Neutrophils # (A) 6.4 k/uL (1.3-7.7); Neutrophils % (A) 92 %; Platelet Count 255 k/uL (150-450); Poikilocytosis Slight; RBC 4.25 m/uL (3.80-5.40); RDW 15.1 % (11.5-15.5)
[2020-05-30 15:09] LABS: Albumin 2.2 g/dL (3.5-5.0); Calcium 7.5 mg/dL (8.4-10.2); Potassium 3.4 mmol/L (3.5-5.1); Total Bilirubin 0.7 mg/dL (0.2-1.3); Total Protein 6.2 g/dL (6.3-8.2)
[2020-05-30] MEDS ORDERED: Potassium Replacement Protocol 1 EACH MISC MISCELLANE PRN (15:27)
[2020-05-30] MEDS ORDERED: PIPERACILLIN-TAZOBACTAM 3.375 GM in SODIUM CHLORIDE 0.9% 100 ML IVPB SCH (16:00)
[2020-05-30] MEDS: NOREPINEPHRINE 4 MG in SODIUM CHLORIDE 0.9% 250 ML IV SCH ×2 (17:08→20:27)
[2020-05-30] MEDS: POTASSIUM CHLORIDE 20 MEQ in WATER FOR INJECTION 1 100ML.BAG IVPB SCH ×2 (17:08→20:11)
--- NOTE | 2020-05-30 17:29 | P.EN ---
Called to patient bedside for A-Team due to hypotension and lethargy. Upon arrival, patient was completely obtunded and did not respond to painful stimulus. Patient's background is myasthenia gravis flare, which had failed physiostigimine and IVIG, and patient was planned to be transferred to [facility] for plasmapheresis. However, prior to transfer, patient became obtunded with low blood pressures. Upon my arrival, patient was 69/47, saturation was 90% on 6L of NC. Patient appeared to have shallow breathing, and had variable heart rate between 48 to 120; telemetry demonstrated Atrial Fibrillation, which is known for this patient. Neurological exam demonstrated no withdrawal/response to pain. Pupils appeared equal but sluggish. Patient had one peripheral 20G IV access point through which NS was running as pressured bolus. Patient did not appear to be protecting her airway. Repeat blood pressure after fluids was 68/45. A large bore IV was placed on patients right arm, and patient was started on levophed at 10mcg, with modest improvement in BP. Patient continued to desaturate and required Bag Valve Mask. Anesthesia was called for an airway, and prior to intubation, an OPA was placed and patient was ventilated by BVM. Airway was obtained via endotracheal intubation, and patient was transferred to the ICU with mechanical ventilation and levophed. Phx: Gen: obtunded, severe distress from breathing HEENT: pupils equal, sluggish, dry mucous membranes Resp: coarse breath sounds, shallow inspiration, equal expansion, poor air exchange CVS: irregular rhythm, oscillating bradycardia/tachycardia, no pitting edema, poor perfusion in all extremities; brachial pulses palpable, carotid palpable, radial and DP pulses not palpable GI: soft, ND : no zurita catheter Neuro: does not withdraw to painful stimulus A/P: 1. Acute Hypoxemic and Hypercarbic Respiratory Failure 2. Myasthenia Gravis Flare 3. Distributive Shock from Myasthenia Gravis Flare - patient was transferred to ICU - Respiratory: patient was intubated on the floor, Vent: 100% FiO2, RV 400, RR 14, PEEP 5; ABG pending, CXR pending - CVS: patient placed on levophed, titrate to MAP > 65; atrial fibrillation on tle, patient is not yet on therapeutic AC - GI: +PEG tube, hold tube feeds per now - : patient will require zurita placement as likely that patient is retaining urine in setting of MG flare - Neuro: continue physiostigimine, IVIG; continue seeking transfer to tertiary care for plasmapheresis; sedated on propofol - ID: patient is on zosyn coverage for aspiration pneumonia; Resp Cx pending I spent approximately 45 minutes of critical care time with this patient.
[2020-05-30 20:53] VITALS: TEMP 96.8
[2020-05-30] MEDS ORDERED: CHLORHEXIDINE GLUCONATE 15 ML CUP MUCOUS MEM SCH (21:00)
[2020-05-30 21:48] LABS: Glucose,Whole Blood 88 mg/dL (75-99)
[2020-05-31 00:53] VITALS: BP 122/51; PULSE 95; RESP 9
--- NOTE | 2020-06-02 20:57 | CDI ---
Documentation Clarification Form Date: 06/03/20 From: Robert Cantrell Phone: If you have a question about this query, please contact Alaina Liu Marketing Project Specialist at [phone] between 8am and 5pm. Admit Date: 05/25/2020 09:02:00 AM Patient Name: Kareen Aguilera Visit Number: [id number] Discharge Date: 05/31/2020 01:54:00 AM ATTENTION: The Clinical Documentation Specialists (CDI) and [facility] Coding Staff appreciate your assistance in clarifying documentation. Please respond to the clarification below the line at the bottom and electronically sign. The CDI & [facility] Coding staff will review the response and follow-up if needed. Please note: Queries are made part of the Legal Health Record. If you have any questions, please contact the author of this message via ITS. Dr. Sawyer Shrestha MD., Patient admitted with Myasthenia gravis, with acute exacerbation. History/Risk Factors: Cancer, Hypertension, Osteoarthritis (OA) Clinical Indicators: 05/24/20 17:00 96 18 134/66 98 WBC : 7.0 Blood cultures: NG Vitals signs on admission: 05/30/20 11:17 96 16 100/63 96 1 acute respiratory failure. The patient was found to be in irregular-agonal respiratory breathing and the patient was completely unresponsive, and she had to be intubated and placed on a mechanical ventilator 05/30 Patient noted Hypotension "Distributive Shock from Myasthenia Gravis Flare" patient was intubated prior to transfer as patient in myasthenia gravis exacerbation. acute hypotension currently currently on a combination of fluid and pressors. Consider sepsis In your professional opinion, please clarify if these findings signify one of the following conditions, Condition Sepsis ruled out Sepsis Severe Sepsis Septic Shock Other, please specify Unable to determine MTDD
== END 2020-05-31 01:54 | disposition short-term general hospital (02) | DRG 56 ==
LOC: EC 11:55 → 1SOBS 14:58 → 3SCARD 05-25 01:59 → OBSVTOIN 05-25 09:02 → 2SICU 05-30 12:33
PROVIDERS: ADMIT Internal Medicine Geriatric Medicine; ATTEND Internal Medicine Geriatric Medicine
PROC: 0DH63UZ Insertion of Feeding Device into Stomach, Percutaneous Approach (ICD-10-PCS; principal; 2020-05-28 08:10)
PROC: 3E0G76Z Introduction of Nutritional Substance into Upper GI, Via Natural or Artificial Opening (ICD-10-PCS; principal; 2020-05-28 08:10)
PROC: 03HY32Z Insertion of Monitoring Device into Upper Artery, Percutaneous Approach (ICD-10-PCS; 2020-05-30)
PROC: 4A133J1 Monitoring of Arterial Pulse, Peripheral, Percutaneous Approach (ICD-10-PCS; 2020-05-30)
PROC: 4A133B1 Monitoring of Arterial Pressure, Peripheral, Percutaneous Approach (ICD-10-PCS; 2020-05-30)
PROC: 02HV33Z Insertion of Infusion Device into Superior Vena Cava, Percutaneous Approach (ICD-10-PCS; 2020-05-30)
PROC: 3E033XZ Introduction of Vasopressor into Peripheral Vein, Percutaneous Approach (ICD-10-PCS; 2020-05-30)
PROC: 5A1935Z Respiratory Ventilation, Less than 24 Consecutive Hours (ICD-10-PCS; 2020-05-30)
PROC: 0BH17EZ Insertion of Endotracheal Airway into Trachea, Via Natural or Artificial Opening (ICD-10-PCS; 2020-05-30)
PROC: 30233S1 Transfusion of Nonautologous Globulin into Peripheral Vein, Percutaneous Approach (ICD-10-PCS; 2020-05-30)
DX: G70.01 Myasthenia gravis with (acute) exacerbation (principal); J96.01 Acute respiratory failure with hypoxia; J96.02 Acute respiratory failure with hypercapnia; R57.8 Other shock; J69.0 Pneumonitis due to inhalation of food and vomit; E44.0 Moderate protein-calorie malnutrition; I47.1 Supraventricular tachycardia; I95.89 Other hypotension; M19.90 Unspecified osteoarthritis, unspecified site; H91.90 Unspecified hearing loss, unspecified ear; E03.9 Hypothyroidism, unspecified; I10 Essential (primary) hypertension; M47.22 Other spondylosis with radiculopathy, cervical region; Z20.828 Contact with and (suspected) exposure to other viral communicable diseases; C50.919 Malignant neoplasm of unspecified site of unspecified female breast; E05.90 Thyrotoxicosis, unspecified without thyrotoxic crisis or storm; I73.9 Peripheral vascular disease, unspecified; K26.9 Duodenal ulcer, unspecified as acute or chronic, without hemorrhage or perforation; R13.12 Dysphagia, oropharyngeal phase; M95.4 Acquired deformity of chest and rib; I48.91 Unspecified atrial fibrillation; M50.10 Cervical disc disorder with radiculopathy, unspecified cervical region; Z90.710 Acquired absence of both cervix and uterus; Z87.891 Personal history of nicotine dependence; Z85.3 Personal history of malignant neoplasm of breast; Z85.038 Personal history of other malignant neoplasm of large intestine; Z79.899 Other long term (current) drug therapy; Z79.890 Hormone replacement therapy; Z79.811 Long term (current) use of aromatase inhibitors; Z80.9 Family history of malignant neoplasm, unspecified; Z78.1 Physical restraint status; Z68.24 Body mass index [BMI] 24.0-24.9, adult
CPT/HCPCS: 36415; 36600; 43246; 70450; 71045; 71046; 72125; 72128; 72141; 74230; 80048; 80053; 82805; 83519; 83735; 84100; 84439; 84443; 84484; 85025; 85027; 85610; 85730; 87070; 87077; 87186; 87205; 87635; 93005; 93306; 94002; 94760; 99285

== ENCOUNTER → 2020-05-24 | Outpatient (CLI) | payer MEDICARE, BC ==
--- NOTE | 2020-05-24 11:42 | FL ---
MODIFIED SWALLOW / DEGLUTITION STUDY DATE OF EXAM: 05/24/2020 CLINICAL HISTORY: 80-year-old female M54.2, neck pain Dysphagia. TECHNIQUE: Deglutition study is performed utilizing thin liquid barium, honey and nectar thick liqui d barium, and barium thick pudding. COMPARISON: None. Total fluoroscopy time: 2 minutes 10 seconds. Total images: None. Real-time fluoroscopy support was provided to speech pathology. FINDINGS: Patient has multilevel spondylotic change in the cervical spine with grade 1 anterolisthesis at C3-C4 and C4-C5. The patient had difficulty holding her head erect. There is limited to no epiglottic inversion. There is decreased pharyngeal peristalsis with some coat ing of the posterior wall. A large episode of ryan silent aspiration is demonstrated with thin liquids. The remaining tested co nsistencies show extensive vallecular residuals. It takes the patient many swallows to adequately jason ar the bolus but no additional aspiration or penetration was seen. IMPRESSION: 1. Limited to no epiglottic inversion. Decreased pharyngeal peristalsis. 2. A large episode of ryan silent penetration of thin liquid consistency. 3. Significant vallecular residuals which requires multiple swallows for the patient to clear the rogelio us. 4. Please refer to speech therapist notes for further details.
== END | disposition home or self-care (01) ==
LOC: RADFLMAIN 11:02
PROVIDERS: ATTEND Family Medicine
DX: J39.2 Other diseases of pharynx (principal)
CPT/HCPCS: 74230